=== PATIENT | male | born 1980 | race Caucasian/White ===

== ENCOUNTER → 2017-02-02 | Outpatient (REF) | payer MEDICAID ==
[~2017-02-02] MED LIST: /LAMO15TA; ACETGRA; CLON0.5T; CLON0.5T PO; DEPA125C; DEPA1TAB PO; DUONSOL; LAMO100T PO; LEVA750T; LEVO330T PO; OMEP40CA2 PO; SUCR1TA PO; THERGRAN; [UNRECOGNIZED DRUG - OTHER]; [UNRECOGNIZED DRUG - OTHER] OR
== END ==
LOC: M SFHCPLAZ 13:03
PROVIDERS: ATTEND Physician Assistant
DX: J06.9 Acute upper respiratory infection, unspecified (principal)

== ENCOUNTER → 2017-02-16 | Outpatient (CLI) | payer MEDICAID ==
[2017-02-16 12:50] LABS: BASO # 0.1 K/mm3 (0.0-0.2); BASO % 0.5 % (0.0-1.0); EOS # 0.4 K/mm3 (0.0-0.50); LARGE UNSTAINED CELL # 0.4 K/mm3 (0.0-0.4); LARGE UNSTAINED CELL % 2.8 % (0.0-4.0); LYMPH # 5.6 K/mm3 (1.5-4.5); LYMPH % 41.8 % (24.0-44.0); MEAN CORPUSCULAR HEMOGLOBIN 30.1 pg (27.0-33.0); MEAN CORPUSCULAR HGB CONC 32.2 g/dl (32.0-36.5); MEAN CORPUSCULAR VOLUME 93.4 fl (80.0-96.0); MONO # 0.6 K/mm3 (0.0-0.8); MONO % 4.8 % (0.0-5.0); NEUTROPHILS # 6.3 K/mm3 (1.8-7.7); PLATELET COUNT, AUTOMATED 367 k/mm3 (150-450); RED CELL DISTRIBUTION WIDTH 12.7 % (11.5-14.5)
[2017-02-16 12:52] LABS: WHITE BLOOD COUNT 13.3 K/mm3 (4.0-10.0)
== END ==
LOC: M LAB 11:57
PROVIDERS: ATTEND Psychiatry & Neurology Neurology
DX: Z51.81 Encounter for therapeutic drug level monitoring (principal); Z79.899 Other long term (current) drug therapy; R56.9 Unspecified convulsions

== ENCOUNTER → 2017-03-06 | Outpatient (CLI) | payer MEDICAID ==
--- NOTE | 2017-03-06 16:35 | REP ---
CT ABDOMEN AND PELVIS WITHOUT CONTRAST: CT abdomen and pelvis performed without oral or IV contrast. Sagittal and coronal reconstruction images are performed. IMPRESSION: Visualized lung bases demonstrate patchy infiltrate in the right lower lobe posteromedially. Liver, spleen, adrenals and pancreas appear grossly unremarkable. There is a 6 x 3 mm calcification in the proximal left ureter. There is no hydronephrosis bilaterally. A tiny heath-like calcification is seen in the left lower pole collecting system as well. There is no abdominal aortic aneurysm. There is no adenopathy. There is no free air or free fluid. There is no bowel wall thickening. There is no pelvic mass. IMPRESSION: There appears to be a 6 x 3 mm calculus in the proximal left ureter without hydronephrosis. Right lower lobe infiltrate. Signed by Andre Rousseau MD 03/06/2017 08:13 P
== END ==
LOC: M RAD 15:30
PROVIDERS: ATTEND Physician Assistant
DX: R30.0 Dysuria (principal); R31.9 Hematuria, unspecified; N20.1 Calculus of ureter

== ENCOUNTER → 2017-03-29 | Outpatient (CLI) | payer MEDICAID ==
[2017-03-29 10:35] LABS: BASO # 0.1 K/mm3 (0.0-0.2); BASO % 0.5 % (0.0-1.0); EOS # 0.3 K/mm3 (0.0-0.50); EOS % 2.3 % (0.0-3.0); LARGE UNSTAINED CELL # 0.2 K/mm3 (0.0-0.4); LARGE UNSTAINED CELL % 1.5 % (0.0-4.0); LYMPH # 5.1 K/mm3 (1.5-4.5); LYMPH % 35.7 % (24.0-44.0); MEAN CORPUSCULAR HEMOGLOBIN 31.6 pg (27.0-33.0); MEAN CORPUSCULAR HGB CONC 33.7 g/dl (32.0-36.5); MEAN CORPUSCULAR VOLUME 93.8 fl (80.0-96.0); MONO # 0.6 K/mm3 (0.0-0.8); MONO % 4.5 % (0.0-5.0); NEUTROPHILS # 7.9 K/mm3 (1.8-7.7); NEUTROPHILS % 55.4 % (36.0-66.0); PLATELET COUNT, AUTOMATED 300 k/mm3 (150-450); RED CELL DISTRIBUTION WIDTH 12.9 % (11.5-14.5)
[2017-03-29 11:01] LABS: ALBUMIN 3.5 GM/DL (3.2-5.2); ANION GAP 7 MEQ/L (8-16); BLOOD UREA NITROGEN 8 MG/DL (7-18); CALCIUM LEVEL 9.4 MG/DL (8.5-10.1); CARBON DIOXIDE LEVEL 27 MEQ/L (21-32); CHLORIDE LEVEL 106 MEQ/L (98-107); CREATININE FOR GFR 0.64 MG/DL (0.70-1.30); GLOMERULAR FILTRATION RATE > 60.0 (>60); GLUCOSE, FASTING 85 MG/DL (70-105); PHOSPHORUS LEVEL 2.4 MG/DL (2.5-4.9); POTASSIUM SERUM 4.2 MEQ/L (3.5-5.1); SODIUM LEVEL 140 MEQ/L (136-145)
[2017-03-29 11:06] LABS: WHITE BLOOD COUNT 14.2 K/mm3 (4.0-10.0)
--- NOTE | 2017-03-29 16:19 | REP ---
Clinical: Palpitations. Technique: AP and lateral. Comparison: 10/05/2009. Findings: Evaluation is limited by technique which accentuates the pulmonary vasculature and interstitium. As such, left perihilar opacities cannot definitively be excluded and differential diagnosis may include bronchitis as well as vascular congestion. Visualize cardiac silhouette appears normal. No effusion. No pneumothorax. Skeletal structures intact. Impression: Limited by technique and positioning. Cannot exclude vascular congestion or bronchitis (left greater than right). Signed by Don Pierre MD 03/29/2017 11:03 A
== END ==
LOC: M LAB 10:06
PROVIDERS: ATTEND Dentist Oral and Maxillofacial Surgery
DX: K04.01 Reversible pulpitis (principal)

== ENCOUNTER 2017-04-12 12:45 | Emergency (ER) | payer MEDICAID ==
[~2017-04-12] VITALS: Ht 152.4 cm; Wt 63.5 kg
[2017-04-12] MEDS ORDERED: FLOM5CAP PO (13:08)
[2017-04-12] MEDS ORDERED: ALBU83IN INH (13:08)
[2017-04-12] MEDS ORDERED: BACL10TA2 PO (13:08)
[2017-04-12] MEDS ORDERED: AMOX500C PO (13:08)
[2017-04-12 14:07] LABS: BASO # 0.1 K/mm3 (0.0-0.2); BASO % 0.6 % (0.0-1.0); EOS # 0.2 K/mm3 (0.0-0.50); EOS % 1.1 % (0.0-3.0); LARGE UNSTAINED CELL # 0.4 K/mm3 (0.0-0.4); LARGE UNSTAINED CELL % 2.5 % (0.0-4.0); LYMPH # 5.8 K/mm3 (1.5-4.5); LYMPH % 33.7 % (24.0-44.0); MEAN CORPUSCULAR HGB CONC 32.6 g/dl (32.0-36.5); MEAN CORPUSCULAR VOLUME 91.9 fl (80.0-96.0); MONO # 0.8 K/mm3 (0.0-0.8); MONO % 4.6 % (0.0-5.0); NEUTROPHILS % 57.6 % (36.0-66.0); PLATELET COUNT, AUTOMATED 439 k/mm3 (150-450); RED CELL DISTRIBUTION WIDTH 12.7 % (11.5-14.5)
[2017-04-12 14:08] LABS: WHITE BLOOD COUNT 17.3 K/mm3 (4.0-10.0)
[2017-04-12 14:26] LABS: ANION GAP 8 MEQ/L (8-16); BLOOD UREA NITROGEN 9 MG/DL (7-18); CALCIUM LEVEL 10.1 MG/DL (8.5-10.1); CARBON DIOXIDE LEVEL 31 MEQ/L (21-32); CHLORIDE LEVEL 106 MEQ/L (98-107); CREATININE FOR GFR 0.78 MG/DL (0.70-1.30); GLOMERULAR FILTRATION RATE > 60.0 (>60); GLUCOSE, FASTING 91 MG/DL (70-105); POTASSIUM SERUM 3.4 MEQ/L (3.5-5.1); SODIUM LEVEL 145 MEQ/L (136-145)
[2017-04-12] MEDS ORDERED: NS 1,000 ML IV ONE (14:45)
--- NOTE | 2017-04-12 15:32 | REP ---
CT abdomen pelvis without IV and oral contrast: Comparison is 03/06/2017. There is a 3 x 6 mm calculus is again noted in the proximal left ureter a centimeter or so more distal than on the comparison study. There is minimal left hydronephrosis. There is a 3 ml nonobstructive calculus in the lower pole taurus of the left kidney. There are no right renal or ureteral calculi. No right hydronephrosis. The visualized lung duke are unremarkable. The unenhanced hepatic parenchyma, gallbladder, pancreas, spleen, adrenals and abdominal aorta are unremarkable and unchanged. Bowel and mesentery are unremarkable. The appendix is unremarkable. Pelvis: There is no ascites. The bladder is unremarkable. There is no adenopathy. The pelvic bowel loops are unremarkable. Impression: Left ureteral calculus as described. Left renal calculus as described. Signed by Andre Payne MD 04/12/2017 03:24 P
[2017-04-12 18:35] VITALS: BP 108/71
[2017-04-12] MEDS ORDERED: CIPR500T89 PO (18:44)
[2017-04-12] MEDS ORDERED: CIPROFLOXACIN 500 MG TAB PO ONE (18:45)
== END 2017-04-12 19:11 | disposition home or self-care (01) ==
LOC: EDBD 12:45 → M ED 13:46
DX: N23 Unspecified renal colic (principal); D72.829 Elevated white blood cell count, unspecified; Z87.442 Personal history of urinary calculi; G80.9 Cerebral palsy, unspecified; K21.9 Gastro-esophageal reflux disease without esophagitis; R56.9 Unspecified convulsions; Z79.899 Other long term (current) drug therapy; Z88.1 Allergy status to other antibiotic agents

== ENCOUNTER → 2017-04-18 | Outpatient (CLI) | payer MEDICAID ==
[~2017-04-18] MED LIST changes: +ALBU83IN INH; +AMOX500C PO; +BACL10TA2 PO; +CIPR500T89 PO; +FLOM5CAP PO
--- NOTE | 2017-04-18 14:39 | REP ---
KUB, TWO VIEWS: HISTORY: Nephrolithiasis. Air is present in small and large intestine. There are no air fluid levels or dilated loops of intestine. There is no pneumoperitoneum. A mild amount of stool is present in the colon. There is no definite nephrolithiasis. IMPRESSION: Nonspecific bowel gas pattern. Signed by Rafael Fleming MD 04/18/2017 02:39 P
== END ==
LOC: M SMT 13:38
PROVIDERS: ATTEND Nurse Practitioner Family
DX: N20.0 Calculus of kidney (principal)

== ENCOUNTER → 2017-04-21 | Outpatient (REF) | payer MEDICAID | LOC: M SFHCPLAZ 17:05 | PROVIDERS: ATTEND Physician Assistant | DX: N20.0 Calculus of kidney (principal) ==

== ENCOUNTER → 2017-05-04 | Outpatient (CLI) | payer MEDICAID ==
[~2017-05-04] MED LIST changes: +PERC2.5T PO
[2017-05-04 10:40] LABS: MEAN CORPUSCULAR HEMOGLOBIN 30.8 pg (27.0-33.0); MEAN CORPUSCULAR HGB CONC 33.4 g/dl (32.0-36.5); MEAN CORPUSCULAR VOLUME 92.2 fl (80.0-96.0); WHITE BLOOD COUNT 11.3 K/mm3 (4.0-10.0)
[2017-05-04 10:45] LABS: INR 1.18
[2017-05-04 11:00] LABS: ALBUMIN 3.4 GM/DL (3.2-5.2); ALBUMIN/GLOBULIN RATIO 0.74 (1.00-1.93); ALKALINE PHOSPHATASE 104 U/L (45-117); ALT/SGPT 14 U/L (12-78); ANION GAP 10 MEQ/L (8-16); AST/SGOT 9 U/L (15-37); BILIRUBIN,TOTAL 0.3 MG/DL (0.2-1.0); BLOOD UREA NITROGEN 10 MG/DL (7-18); CALCIUM LEVEL 9.8 MG/DL (8.5-10.1); CARBON DIOXIDE LEVEL 27 MEQ/L (21-32); CHLORIDE LEVEL 105 MEQ/L (98-107); CREATININE FOR GFR 0.74 MG/DL (0.70-1.30); GLOMERULAR FILTRATION RATE > 60.0 (>60); GLUCOSE, FASTING 111 MG/DL (70-105); SODIUM LEVEL 142 MEQ/L (136-145)
== END ==
LOC: M LAB 10:07
PROVIDERS: ATTEND Nurse Practitioner Family
DX: N20.0 Calculus of kidney (principal)

== ENCOUNTER → 2017-05-08 | Day surgery (SDC) | payer MEDICAID ==
[~2017-05-08] VITALS: Ht 154.9 cm; Wt 63.5 kg
[~2017-05-08] MED LIST changes: +ACETAMINOPHEN TAB 650MG DOSE (2X325MG) PO PRN; +CONRAY-60 60% 50ML VIAL (Q9961) As Ordered ONE; +LIDOCAINE 2% 5ML JELLY UROJET As Ordered ONE; +LIDOCAINE 2% INJ 100 MG/5 ML SDV (FOR ANES.) As Ordered ONE; +LR 1,000 ML IV SCH; +MIDAZOLAM INJ 2 MG/2 ML VIAL (J2250) As Ordered ONE; +ONDANSETRON 4MG/2ML VIAL (J2405) As Ordered ONE; +ONDANSETRON 4MG/2ML VIAL (J2405) IV PRN; +PERCOCET 5MG/325MG TAB PO PRN; +PROPOFOL 200 MG/20 ML VIAL As Ordered ONE; +dexameTHASONE 4 MG/ML 1ML VIAL (J1100) As Ordered ONE; +fentaNYL 100 MCG/2 ML INJECTION (J3010) As Ordered ONE
[2017-05-08] MEDS: fentaNYL 100 MCG/2 ML INJECTION (J3010) IV PRN ×4 (16:22→16:37)
--- NOTE | 2017-05-08 16:25 | REP ---
Retrograde pyelogram: Five views. History: Nephrolithiasis. 19 seconds of fluoroscopy time is reported. Findings: A sequence of five fluoroscopically obtained last image hold spot radiographs of the left abdomen document left ureteral cannulation, guidewire manipulation, contrast injection, and double pigtail ureteral stenting. Signed by Alex Price MD 05/08/2017 04:47 P
[2017-05-08 17:40] VITALS: BP 128/85
--- NOTE | 2017-05-08 23:39 | RO ---
DATE OF PROCEDURE: 05/08/2017 PREPROCEDURE DIAGNOSIS: Nephrolithiasis. POSTPROCEDURE DIAGNOSIS: Nephrolithiasis. PROCEDURE: Cystoscopy, left ureteroscopy with basket extraction of stone, left retrograde pyelogram with intraoperative interpretation of images, left ureteral stent placement. SURGEON: Dr. Mazin House ACCOUNTING ADMINISTRATOR: None. ANESTHESIA: MAC. OPERATIVE INDICATIONS: This is a 36-year-old male who has had a proximal obstructing left ureteral stone. He was brought to the operating room today for the above listed procedure. DESCRIPTION OF PROCEDURE: The patient was brought to the operating room and MAC anesthesia was administered. Prophylactic antibiotics were infused. He was then placed in the dorsal lithotomy position and prepped and draped in the usual sterile fashion. A rigid cystoscope was inserted into the urethral meatus and advanced to the bladder. Once within the bladder, a guidewire was advanced up the left collecting system. I then advanced a ureteral access sheath over the wire, up into the left collecting system. The wire was then secured to the drape to serve as a safety wire. At this point, the flexible ureteroscope was advanced up the access sheath and into the ureter. Of note, the access sheath only went up to about the level of the crossing of the iliacs. I had to advance the ureteroscope up the rest of the distance of the ureter and of note, the patient had a very narrow ureter. This made it difficult to advance the ureteroscope up, but ultimately, in the proximal ureter, the 4 mm stone was seen. The stone was then grasped with a basket and removed. I went back in with the ureteroscope and examined the ureter again and did not see any additional stones. I tried advancing the ureteroscope into the kidney and of note, his ureteropelvic junction was somewhat narrow and I could not advance the ureteroscope into the left kidney. A retrograde pyelogram was performed. It was negative for hydronephrosis or extravasation. At this point, the ureteroscope was removed along with the access sheath and no additional stones were seen. Because of the narrowing of the ureter, I did decide to leave a stent. I then utilized the previously placed wire to advance a 6- [place] x 22-32 cm JJ ureteral stent up to the left collecting system. The wire was then removed, and there were adequate coils of the stent in the left renal pelvis and in the bladder. At this point, a new 16-[place] Randolph catheter was inserted into the bladder and the balloon was filled with 10 mL of sterile water. The fluid drained clear at the end of the procedure. The catheter was connected to gravity drainage, and this marked the conclusion of the procedure. The patient was then taken out of the dorsal lithotomy position, awakened from anesthesia and transported to the recovery room in stable condition. Estimated blood loss: 0 mL. Complications: None. Specimens: Kidney stone. Plan: The patient will followup in the clinic in a week or two for stent removal. Also of note, the patient was recently diagnosed with urinary retention and we will potentially do a voiding trial at that time as well. SANTA
== END | disposition home or self-care (01) ==
LOC: M SDC 13:56
PROVIDERS: ATTEND Urology
DX: N20.0 Calculus of kidney (principal); K21.9 Gastro-esophageal reflux disease without esophagitis; G80.9 Cerebral palsy, unspecified; Z99.3 Dependence on wheelchair; R56.9 Unspecified convulsions; Z79.899 Other long term (current) drug therapy
CPT/HCPCS: 52332; 52352; 74420; 82360; 88300; C1726; C1894; J0690; J2250; J2405; J3010; Q9961

== ENCOUNTER → 2017-05-22 | Outpatient (REF) | payer MEDICAID ==
[~2017-05-22] MED LIST changes: -ACETAMINOPHEN TAB 650MG DOSE (2X325MG) PO PRN; +CIPR-249 PO; -CIPR500T89 PO; -CONRAY-60 60% 50ML VIAL (Q9961) As Ordered ONE; -LIDOCAINE 2% 5ML JELLY UROJET As Ordered ONE; -LIDOCAINE 2% INJ 100 MG/5 ML SDV (FOR ANES.) As Ordered ONE; -LR 1,000 ML IV SCH; -MIDAZOLAM INJ 2 MG/2 ML VIAL (J2250) As Ordered ONE; -ONDANSETRON 4MG/2ML VIAL (J2405) As Ordered ONE; -ONDANSETRON 4MG/2ML VIAL (J2405) IV PRN; -PERCOCET 5MG/325MG TAB PO PRN; -PROPOFOL 200 MG/20 ML VIAL As Ordered ONE; -dexameTHASONE 4 MG/ML 1ML VIAL (J1100) As Ordered ONE; -fentaNYL 100 MCG/2 ML INJECTION (J3010) As Ordered ONE
== END ==
LOC: M SFHCPLAZ 14:30
PROVIDERS: ATTEND Physician Assistant
DX: E55.9 Vitamin D deficiency, unspecified (principal)

== ENCOUNTER → 2017-06-14 | Outpatient (REF) | payer MEDICAID | LOC: EEVIPCON 16:50 → M SMT 16:50 | PROVIDERS: ATTEND Urology | DX: N39.0 Urinary tract infection, site not specified (principal) ==

== ENCOUNTER → 2017-07-05 | Outpatient (REF) | payer MEDICAID | LOC: M SFHCPLAZ 16:16 | PROVIDERS: ATTEND Nurse Practitioner Family | DX: Z51.81 Encounter for therapeutic drug level monitoring (principal) ==

== ENCOUNTER → 2017-07-05 | Outpatient (CLI) | payer MEDICAID ==
--- NOTE | 2017-07-06 07:15 | REP ---
RIGHT FOOT, FOUR VIEW: Attention first digit. The patient has sustained a contusion. Prior examination 12/28/2015. Today's examination shows a fracture involving the articular surface of the proximal phalanx of the first digit. This represents a change. The previously present fracture involving the base of the proximal phalanx of the first digit has healed. There is a flat foot. IMPRESSION: Acute fracture involving the distal aspect of the proximal phalanx of the first digit with an intraarticular hairline fracture and a subtle fracture involving the mid lateral cortex. Signed by Afshin Foy DO 07/06/2017 02:40 P
== END ==
LOC: M LAB 16:44
PROVIDERS: ATTEND Nurse Practitioner Family
DX: Z51.81 Encounter for therapeutic drug level monitoring (principal); Z79.899 Other long term (current) drug therapy; S92.401A Displaced unspecified fracture of right great toe, initial encounter for closed fracture; X58.XXXA Exposure to other specified factors, initial encounter; Y92.9 Unspecified place or not applicable

== ENCOUNTER → 2017-10-09 | Outpatient (CLI) | payer MEDICAID ==
--- NOTE | 2017-10-09 17:46 | REP ---
Chest x-ray: Two views. History: Shortness of breath. Comparison chest x-ray September 14, 2017. Findings: The patient is rotated somewhat to the right for the sitting AP view of today's examination. Lungs are symmetrically aerated and clear. The pleural angles are sharp. Heart size is normal. No significant bony abnormality is seen. Pulmonary vasculature is not increased. Impression: No active disease. Signed by Alex Price MD 10/09/2017 08:30 P
== END ==
LOC: M LAB 15:59
PROVIDERS: ATTEND Family Medicine
DX: R06.02 Shortness of breath (principal)

== ENCOUNTER → 2017-11-20 | Outpatient (REF) | payer MEDICAID ==
[2017-11-20 18:42] LABS: FOLATE 22.2 NG/ML; VITAMIN B12 LEVEL 1163 PG/ML
[2017-11-20 18:50] LABS: IRON (FE) 95 UG/DL (65-175); PERCENT SATURATION 24.3 % (19.7-50.0); TOTAL IRON BINDING CAPACITY 391 UG/DL (250-450)
== END ==
LOC: M SFHCPLAZ 14:35
DX: D50.9 Iron deficiency anemia, unspecified (principal)

== ENCOUNTER → 2018-02-02 | Outpatient (CLI) | payer MEDICAID ==
[2018-02-02 13:17] LABS: HEMATOCRIT 47.6 % (42.0-52.0); HEMOGLOBIN 15.4 g/dl (14.0-18.0); MEAN CORPUSCULAR HEMOGLOBIN 30.1 pg (27.0-33.0); MEAN CORPUSCULAR HGB CONC 32.4 g/dl (32.0-36.5); PLATELET COUNT, AUTOMATED 252 10^3/uL (150-450); RED BLOOD COUNT 5.12 10^6/uL (4.30-6.10); RED CELL DISTRIBUTION WIDTH 12.9 % (11.5-14.5)
[2018-02-02 13:41] LABS: ADD MANUAL DIFFER YES; DIFF SLIDE NUMBER 229; POSITIVE DIFF POS FLAG
[2018-02-02 13:44] LABS: ALT/SGPT 13 U/L (12-78); VALPROIC ACID (DEPAKOTE) 89.8 UG/ML (50.0-100.0)
[2018-02-02 13:44] LABS: AST/SGOT 10 U/L (7-37)
[2018-02-02 14:21] LABS: ATYPICAL LYMPH 3 % (0-5); BASOPHILS 1 % (0-4); EOSINOPHILS 1 % (0-5); LYMPHOCYTES 39 % (16-52); MONOCYTES 6 % (0-8); NEUTROPHILS 50 % (35-75); PLATELET ESTIMATE NORMAL (NORMAL)
[2018-02-06 00:07] LABS: LAMOTRIGINE (LAMICTAL) 13.3 ug/mL (2.0-20.0)
== END ==
LOC: M LAB 12:28
DX: Z51.81 Encounter for therapeutic drug level monitoring (principal); Z79.899 Other long term (current) drug therapy; R56.9 Unspecified convulsions
CPT/HCPCS: 84460

== ENCOUNTER → 2018-08-09 | Outpatient (CLI) | payer MEDICAID ==
[2018-08-09 14:06] LABS: VALPROIC ACID (DEPAKOTE) 74.4 UG/ML (50.0-100.0)
[2018-08-13 00:06] LABS: LAMOTRIGINE (LAMICTAL) 15.3 ug/mL (2.0-20.0)
== END ==
LOC: M LAB 12:57
DX: R56.9 Unspecified convulsions (principal); Z51.81 Encounter for therapeutic drug level monitoring
CPT/HCPCS: 80164

== ENCOUNTER → 2018-08-30 | Outpatient (REF) | payer MEDICAID ==
[2018-08-30 13:37] LABS: HEMATOCRIT 46.5 % (42.0-52.0); MEAN CORPUSCULAR HEMOGLOBIN 29.9 pg (27.0-33.0); MEAN CORPUSCULAR HGB CONC 32.3 g/dl (32.0-36.5); MEAN CORPUSCULAR VOLUME 92.8 fl (80.0-96.0); PLATELET COUNT, AUTOMATED 366 10^3/uL (150-450); RED BLOOD COUNT 5.01 10^6/uL (4.30-6.10); RED CELL DISTRIBUTION WIDTH 12.5 % (11.5-14.5)
[2018-08-30 13:44] LABS: ADD MANUAL DIFFER YES; DIFF SLIDE NUMBER 217; POSITIVE DIFF POS FLAG; WHITE BLOOD COUNT 12.4 10^3/uL (4.0-10.0)
[2018-08-30 14:05] LABS: ATYPICAL LYMPH 31 % (0-5); EOSINOPHILS 3 % (0-5); LYMPHOCYTES 20 % (16-52); MONOCYTES 7 % (0-8); NEUTROPHILS 39 % (35-75); PLATELET ESTIMATE NORMAL (NORMAL)
[2018-08-30 14:10] LABS: CHOLESTEROL LEVEL 194 MG/DL (<200); CHOLESTEROL RISK RATIO 4.311 (<5); HDL CHOLESTEROL 45 MG/DL (>40); IRON (FE) 126 UG/DL (65-175); LDL CHOLESTEROL 112 MG/DL (<100); NON-HDL-C 149 MG/DL; PERCENT SATURATION 35.5 % (19.7-50.0); TOTAL IRON BINDING CAPACITY 355 UG/DL (250-450); TRIGLYCERIDES LEVEL 184 MG/DL (<150)
[2018-08-30 14:59] LABS: ESTIMATED AVERAGE GLUCOSE 103 MG/DL (60-110); HEMOGLOBIN A1c 5.2 %
== END ==
LOC: M SFHCPLAZ 11:13
DX: D50.9 Iron deficiency anemia, unspecified (principal); R73.01 Impaired fasting glucose; Z13.220 Encounter for screening for lipoid disorders

== ENCOUNTER → 2018-08-30 | Outpatient (REF) | payer MEDICAID | LOC: M SFHCPLAZ 13:19 | DX: J02.9 Acute pharyngitis, unspecified (principal) ==

== ENCOUNTER → 2019-02-08 | Outpatient (CLI) | payer MEDICAID ==
[~2019-02-08] MED LIST changes: -CLON0.5T PO; +CLON0.5T8 PO; +FLOM0.4C39 PO; -FLOM5CAP PO
[2019-02-11 14:14] LABS: LAMOTRIGINE (LAMICTAL) 16.1 ug/mL (2.0-20.0)
== END ==
LOC: M LAB 12:35
PROVIDERS: ATTEND Physician Assistant Medical
DX: R56.9 Unspecified convulsions (principal)

== ENCOUNTER → 2019-03-27 | Outpatient (REF) | payer MEDICAID ==
[~2019-03-27] MED LIST changes: -/LAMO15TA; +LAMI1TAB8
[2019-03-27 15:55] LABS: HEMATOCRIT 44.8 % (42.0-52.0); HEMOGLOBIN 14.5 g/dl (13.5-17.5); MEAN CORPUSCULAR HEMOGLOBIN 29.9 pg (27.0-33.0); MEAN CORPUSCULAR HGB CONC 32.4 g/dl (32.0-36.5); MEAN CORPUSCULAR VOLUME 92.4 fl (80.0-96.0); PLATELET COUNT, AUTOMATED 351 10^3/uL (150-450); RED BLOOD COUNT 4.85 10^6/uL (4.30-6.10)
[2019-03-27 16:00] LABS: WHITE BLOOD COUNT 13.6 10^3/uL (4.0-10.0)
[2019-03-27 16:28] LABS: ATYPICAL LYMPH 3 % (0-5); BASOPHILS 1 % (0-4); EOSINOPHILS 3 % (0-5); LYMPHOCYTES 47 % (16-52); MONOCYTES 2 % (0-8); NEUTROPHILS 44 % (35-75)
[2019-03-27 16:29] LABS: PLATELET ESTIMATE NORMAL (NORMAL)
== END ==
LOC: M SFHCPLAZ 13:34
PROVIDERS: ATTEND Family Medicine
DX: D72.820 Lymphocytosis (symptomatic) (principal)

== ENCOUNTER → 2019-06-20 | Outpatient (REF) | payer MEDICAID ==
[2019-06-21 12:28] LABS: H PYLORI QUALITATIVE IgG DETECTED (NEGATIVE)
[2019-06-21 13:11] LABS: HEPATITIS B SURFACE ANTIGEN NEGATIVE (NEGATIVE); HEPATITIS C VIRUS ABY INDEX 0.1 INDEX (<0.8)
== END ==
LOC: M SFHCPLAZ 11:23
PROVIDERS: ATTEND Family Medicine
DX: R94.5 Abnormal results of liver function studies (principal); R10.13 Epigastric pain

== ENCOUNTER → 2019-06-26 | Outpatient (CLI) | payer MEDICAID ==
--- NOTE | 2019-06-26 11:36 | REP ---
Right upper quadrant sonography: History: Elevated liver function studies. Abdomen pain. Comparison CT study April 12, 2017. Findings: Scan quality was inhibited by patient positioning and mobility factors and bowel gas. Scanning through the right upper quadrant of the abdomen demonstrates shadowing calculi in the gallbladder. No gallbladder wall thickening or pericholecystic fluid is seen. Common bile duct is normal measuring 0.6 cm in greatest diameter. Mild fatty infiltration of the liver pattern is seen. No focal liver lesion is appreciated. The pancreas is obscured by abdominal gas. There is no evidence of ascites. The right kidney measures 10.8 x 6.3 x 5.4 cm. There is a 1.4 cm cyst in the upper pole of the right kidney. Impression: Cholelithiasis. Right upper pole renal cyst 1.4 cm in diameter. Fatty infiltration of the liver suspected. Electronically Signed by Alex Price MD 06/26/2019 08:58 P
== END ==
LOC: M RAD 07:33
PROVIDERS: ATTEND Family Medicine
DX: R94.5 Abnormal results of liver function studies (principal)

== ENCOUNTER → 2019-06-27 | Outpatient (CLI) | payer MEDICAID ==
[~2019-06-27] MED LIST changes: +GASTROGRAFIN SOLUTION 30ML (Q9963) As Ordered ONE; +ISOVUE-370 76% 100ML VIAL (Q9967) As Ordered ONE
--- NOTE | 2019-06-27 17:22 | REP ---
CT CHEST AND ABDOMEN: COMPARISON: Abdomen 04/12/2017. REASON FOR EXAM: Possible lymphoma. CONTRAST: 100 mL [id number]. There is no mediastinal, hilar, or axillary adenopathy. There are no pleural or pericardial effusions. There is significant artifact caused by the patient's arms across his chest during scanning. Evaluation of the lung duke shows significant respiratory motion artifact and artifact caused by the aforementioned arms. This could potentially obscure a significant nodule. The small opacity is seen in the right lower lobe which is pleural based and has a maximal measurement of 2.1 cm . Limited evaluation of the liver, gallbladder, spleen, pancreas, adrenal glands and kidneys show no gross abnormalities. A small cyst is seen in the right kidney status quo. Small calcifications are seen in each kidney likely renovascular calcifications but obscured by the motion artifact. The abdominal aorta and paraaortic regions are within normal limits. There is no intraabdominal mass or adenopathy. The bowel loops and their mesenteries are within normal limits. CT PELVIS: There is no mass or adenopathy. There is no free fluid or free air. The bowel loops and their mesenteries are within normal limits. Bone window technique throughout the entire exam shows the osseous structures to be within normal limits. IMPRESSION: 1. Extreme exam limitations as described above. 2. Opacity in the right lung base as described above representing a change from lung base images of 04/12/2017. Possible subsegmental atelectatic change, however according the revised Fleischner's Society Criteria, three month followup is recommended. 3. Other findings as described above. There is no evidence of adenopathy on this limited exam. Electronically Signed by Afshin Foy DO 06/27/2019 06:02 P
== END ==
LOC: M RAD 11:50
PROVIDERS: ATTEND Internal Medicine
DX: R61 Generalized hyperhidrosis (principal)
CPT/HCPCS: 71260; 74178; Q9963; Q9967

== ENCOUNTER → 2019-07-22 | Outpatient (CLI) | payer MEDICAID ==
[~2019-07-22] MED LIST changes: -GASTROGRAFIN SOLUTION 30ML (Q9963) As Ordered ONE; -ISOVUE-370 76% 100ML VIAL (Q9967) As Ordered ONE; +MULTCAP PO
[2019-07-22 11:12] LABS: HEMATOCRIT 43.8 % (42.0-52.0); HEMOGLOBIN 14.1 g/dl (13.5-17.5); MEAN CORPUSCULAR HEMOGLOBIN 30.3 pg (27.0-33.0); MEAN CORPUSCULAR HGB CONC 32.2 g/dl (32.0-36.5); MEAN CORPUSCULAR VOLUME 94.2 fl (80.0-96.0); PLATELET COUNT, AUTOMATED 438 10^3/uL (150-450); RED BLOOD COUNT 4.65 10^6/uL (4.30-6.10)
[2019-07-22 11:15] LABS: WHITE BLOOD COUNT 13.3 10^3/uL (4.0-10.0)
[2019-07-22 11:33] LABS: VALPROIC ACID (DEPAKOTE) 75.4 UG/ML (50.0-100.0)
[2019-07-22 11:54] LABS: ATYPICAL LYMPH 2 % (0-5); EOSINOPHILS 5 % (0-3); LYMPHOCYTES 33 % (16-44); MONOCYTES 1 % (0-5); NEUTROPHILS 59 % (28-66)
[2019-07-22 11:55] LABS: PLATELET ESTIMATE NORMAL (NORMAL)
== END ==
LOC: M LAB 10:24
PROVIDERS: ATTEND Physician Assistant Medical
DX: G40.89 Other seizures (principal); Z79.899 Other long term (current) drug therapy

== ENCOUNTER → 2019-08-01 | Outpatient (REF) | payer MEDICAID | LOC: M SFHCPLAZ 12:29 | PROVIDERS: ATTEND Family Medicine | DX: A04.8 Other specified bacterial intestinal infections (principal) ==

== ENCOUNTER → 2019-08-02 | Outpatient (REF) | payer MEDICAID | LOC: M SFHCPLAZ 11:06 | PROVIDERS: ATTEND Family Medicine | DX: A04.8 Other specified bacterial intestinal infections (principal) ==

== ENCOUNTER 2019-08-06 09:12 | Day surgery (SDC) | payer MEDICAID ==
[~2019-08-06] VITALS: Ht 152.4 cm; Wt 78.8 kg
[~2019-08-06 09:12] MED LIST changes: +LIDOCAINE 1% MDV 20ML VIAL SQ PRN; +LR 1,000 ML IV ONE
[2019-08-06] MEDS ORDERED: MIDAZOLAM INJ 2 MG/2 ML VIAL (J2250) As Ordered ONE (09:37)
[2019-08-06] MEDS ORDERED: PROPOFOL 200 MG/20 ML VIAL As Ordered ONE (09:37)
[2019-08-06] MEDS ORDERED: LIDOCAINE 2% INJ 100 MG/5 ML SDV (FOR ANES.) As Ordered ONE (09:37)
[2019-08-06] MEDS ORDERED: ONDANSETRON 4MG/2ML VIAL (J2405) As Ordered ONE (09:37)
[2019-08-06] MEDS ORDERED: fentaNYL 100 MCG/2 ML INJECTION (J3010) As Ordered ONE (09:37)
[2019-08-06] MEDS ORDERED: SUGAMMADEX SODIUM 500 MG/5 ML VIAL (BRIDION) As Ordered ONE (10:25)
[2019-08-06] MEDS ORDERED: ROCURONIUM BROMIDE 50 MG/5 ML VIAL As Ordered ONE (10:25)
--- NOTE | 2019-08-06 11:23 | ROOR ---
Patient Name: Darrius Alcazar Procedure Date: 08/06/2019 10:39 AM Date of : 1980 Age: 38 Gender: Male Note Status: Finalized Procedure: Upper GI endoscopy Indications: Generalized abdominal pain Providers: Alireza Oropeza Jr, MD Referring MD: Alireza Oropeza Jr, MD Requesting Provider: Medicines: General Anesthesia Complications: No immediate complications. Procedure: Pre-Anesthesia Assessment: - Prior to the procedure, a History and Physical was performed, and patient medications and allergies were reviewed. The patient is competent. The risks and benefits of the procedure and the sedation options and risks were discussed with the patient. All questions were answered and informed consent was obtained. Patient identification and proposed procedure were verified by the physician and the nurse in the pre-procedure area and in the procedure room. Mental Status Examination: alert and oriented. Airway Examination: normal oropharyngeal airway and neck mobility. Respiratory Examination: clear to auscultation. CV Examination: normal. ASA Grade Assessment: III - A patient with severe systemic disease. After reviewing the risks and benefits, the patient was deemed in satisfactory condition to undergo the procedure. The anesthesia plan was to use moderate sedation / analgesia (conscious sedation). Immediately prior to administration of medications, the patient was re-assessed for adequacy to receive sedatives. The heart rate, respiratory rate, oxygen saturations, blood pressure, adequacy of pulmonary ventilation, and response to care were monitored throughout the procedure. The physical status of the patient was re-assessed after the procedure. The Endoscope was introduced through the mouth, and advanced to the second part of duodenum. The upper GI endoscopy was accomplished without difficulty. The patient tolerated the procedure well. Findings: The upper third of the esophagus, middle third of the esophagus and lower third of the esophagus were normal. A small hiatal hernia was present. The cardia, gastric fundus, gastric body, gastric antrum, prepyloric region of the stomach and pylorus were normal. Biopsies were taken with a cold forceps for histology. The duodenal bulb, first portion of the duodenum and second portion of the duodenum were normal. Impression: - Normal upper third of esophagus, middle third of esophagus and lower third of esophagus. - Small hiatal hernia. - Normal cardia, gastric fundus, gastric body, antrum, prepyloric region of the stomach and pylorus. - Normal duodenal bulb, first portion of the duodenum and second portion of the duodenum. - No specimens collected. Recommendation: - Discharge patient to home (with escort). Alireza Oropeza MD Alireza Oropeza Jr, MD 08/06/2019 11:22:54 AM Electronically signed by Alireza Oropeza Jr, MD Number of Addenda: 0 Note Initiated On: 08/06/2019 10:39 AM Estimated Blood Loss: Estimated blood loss: none.
--- NOTE | 2019-08-06 11:28 | ROOR ---
Patient Name: Darrius Alcazar Procedure Date: 08/06/2019 10:44 AM Date of : 1980 Age: 38 Gender: Male Note Status: Finalized Procedure: Colonoscopy Indications: Generalized abdominal pain Providers: Alireza Oropeza Jr, MD Referring MD: Alireza Oropeza Jr, MD Requesting Provider: Medicines: General Anesthesia Complications: No immediate complications. Procedure: Pre-Anesthesia Assessment: - Prior to the procedure, a History and Physical was performed, and patient medications and allergies were reviewed. The patient is competent. The risks and benefits of the procedure and the sedation options and risks were discussed with the patient. All questions were answered and informed consent was obtained. Patient identification and proposed procedure were verified by the physician and the nurse in the pre-procedure area and in the procedure room. Mental Status Examination: alert and oriented. Airway Examination: normal oropharyngeal airway and neck mobility. Respiratory Examination: clear to auscultation. CV Examination: normal. ASA Grade Assessment: III - A patient with severe systemic disease. After reviewing the risks and benefits, the patient was deemed in satisfactory condition to undergo the procedure. The anesthesia plan was to use moderate sedation / analgesia (conscious sedation). Immediately prior to administration of medications, the patient was re-assessed for adequacy to receive sedatives. The heart rate, respiratory rate, oxygen saturations, blood pressure, adequacy of pulmonary ventilation, and response to care were monitored throughout the procedure. The physical status of the patient was re-assessed after the procedure. The Colonoscope was introduced through the anus and advanced to the descending colon. The colonoscopy was performed without difficulty. The patient tolerated the procedure well. The quality of the bowel preparation was unsatisfactory. Findings: The rectum, sigmoid colon and distal descending colon appeared normal hnad no obstruction was seen however ther was solid stool throughout this area. Impression: - Preparation of the colon was unsatisfactory. - The rectum, sigmoid colon and distal descending colon are normal. - No specimens collected. Recommendation: - Discharge patient to home (ambulatory). - Return to primary care physician as previously scheduled. Alireza Oropeza MD Alireza Oropeza Jr, MD 08/06/2019 11:27:54 AM Electronically signed by Alireza Oropeza Jr, MD Number of Addenda: 0 Note Initiated On: 08/06/2019 10:44 AM Estimated Blood Loss: Estimated blood loss: none.
[2019-08-06] MEDS ORDERED: LR 1,000 ML IV SCH ×2 (11:45)
[2019-08-06 12:10] VITALS: BP 120/85
== END 2019-08-06 12:35 | disposition home or self-care (01) ==
LOC: M SDC 09:12
PROVIDERS: ATTEND Surgery
DX: K44.9 Diaphragmatic hernia without obstruction or gangrene (principal); K21.9 Gastro-esophageal reflux disease without esophagitis; G80.9 Cerebral palsy, unspecified; Z99.3 Dependence on wheelchair; Z88.1 Allergy status to other antibiotic agents; Z79.899 Other long term (current) drug therapy
CPT/HCPCS: 43239; 45378; 88305; J2250; J2405; J3010

== ENCOUNTER → 2019-08-15 | Outpatient (REF) | payer MEDICAID ==
[~2019-08-15] MED LIST changes: -LIDOCAINE 1% MDV 20ML VIAL SQ PRN; -LR 1,000 ML IV ONE
[2019-08-15 17:38] LABS: BLOOD UREA NITROGEN 11 MG/DL (7-18); CALCIUM LEVEL 9.5 MG/DL (8.5-10.1); CARBON DIOXIDE LEVEL 30 MEQ/L (21-32); CHLORIDE LEVEL 107 MEQ/L (98-107); CREATININE FOR GFR 0.69 MG/DL (0.70-1.30); GLOMERULAR FILTRATION RATE > 60.0 (>60); GLUCOSE, FASTING 76 MG/DL (70-100); NT-PRO BNP 49 PG/ML (<125); SODIUM LEVEL 145 MEQ/L (136-145)
== END ==
LOC: M SFHCPLAZ 15:34
PROVIDERS: ATTEND Family Medicine
DX: R06.01 Orthopnea (principal)

== ENCOUNTER 2019-12-26 08:36 | Inpatient (IN) | payer MEDICAID ==
[~2019-12-26] VITALS: Ht 149.9 cm; Wt 78.2 kg
[~2019-12-26 08:36] MED LIST changes: +CLON0.5T2 PO; -CLON0.5T8 PO; -LAMO100T PO; +LAMO100T3 PO; -OMEP40CA2 PO; +OMEP40CA97 PO
[2019-12-26] MEDS: VITAMIN D 1,000 INTERNATIONAL UNITS TABLET PO SCH (09:00)
[2019-12-26] MEDS ORDERED: CVS125CA3 PO (09:11)
[2019-12-26] MEDS ORDERED: ALBU83IN NEB (09:11)
[2019-12-26] MEDS ORDERED: ONDANSETRON 4MG/2ML VIAL (J2405) IV ONE (09:15)
[2019-12-26 09:29] LABS: BASO # 0.1 10^3/uL (0.0-0.2); BASO % 0.4 % (0.0-1.0); EOS # 0.2 10^3/uL (0.0-0.5); HEMATOCRIT 45.4 % (42.0-52.0); HEMOGLOBIN 14.4 g/dl (13.5-17.5); LYMPH # 3.7 10^3/uL (1.5-5.0); LYMPH % 23.4 % (24.0-44.0); MEAN CORPUSCULAR HGB CONC 31.7 g/dl (32.0-36.5); MEAN CORPUSCULAR VOLUME 91.3 fl (80.0-96.0); MONO # 0.9 10^3/uL (0.0-0.8); MONO % 5.9 % (0.0-5.0); NEUTROPHILS # 10.8 10^3/uL (1.5-8.5); NEUTROPHILS % 68.9 % (36.0-66.0); PLATELET COUNT, AUTOMATED 364 10^3/uL (150-450); RED BLOOD COUNT 4.97 10^6/uL (4.30-6.10); WHITE BLOOD COUNT 15.6 10^3/uL (4.0-10.0)
[2019-12-26] MEDS: MORPHINE 4 MG/ML 1ML VIAL/SYRINGE (J2270) IV PRN ×2 (09:51→10:27)
[2019-12-26 10:02] LABS: ALBUMIN 3.7 GM/DL (3.2-5.2); ALT/SGPT 26 U/L (12-78); BILIRUBIN,DIRECT 0.2 MG/DL (0.0-0.2); BILIRUBIN,TOTAL 0.3 MG/DL (0.2-1.0); BLOOD UREA NITROGEN 12 MG/DL (7-18); CALCIUM LEVEL 9.9 MG/DL (8.5-10.1); CARBON DIOXIDE LEVEL 30 MEQ/L (21-32); CHLORIDE LEVEL 107 MEQ/L (98-107); CREATININE FOR GFR 0.81 MG/DL (0.70-1.30); GLOMERULAR FILTRATION RATE > 60.0 (>60); GLUCOSE, FASTING 102 MG/DL (70-100); LIPASE 59 U/L (73-393); POTASSIUM SERUM 3.2 MEQ/L (3.5-5.1); SODIUM LEVEL 144 MEQ/L (136-145); TOTAL PROTEIN 8.4 GM/DL (6.4-8.2)
--- NOTE | 2019-12-26 10:40 | REP ---
Clinical: Right renal colic. Technique: Axial noncontrast images from the lung bases to the pubic symphysis with coronal and sagittal re-formations. Comparison: 06/27/2019. Findings: Evaluation of the urinary tract system demonstrates few punctate nonobstructing bilateral intrarenal calculi and possible 2 cm upper pole right renal cyst. No perinephric stranding or hydroureteronephrosis and no obstructing calculi are identified. The bilateral ureters and bladder are normal. Liver, spleen, pancreas, gallbladder, and bilateral adrenal glands are normal. The enteric system is without obstruction or acute inflammatory process. Pelvis demonstrates normal bladder and age appropriate prostate/seminal vesicles. No ascites. No free air. No adenopathy. Abdominal aorta without aneurysm. Musculoskeletal structures demonstrate age-related changes without focal abnormality. Impression: 1. Punctate nonobstructing bilateral nephroliths. No acute urinary tract pathology. 2. No acute abdominopelvic pathology. Electronically Signed by Don Pierre MD 12/26/2019 10:32 A
[2019-12-26] MEDS ORDERED: LORazepam 2 MG/ML VIAL (J2060) IV ONE (10:45)
[2019-12-26] MEDS ORDERED: HYDROMORPHONE HCL 0.5 MG/ 0.5 ML SYRINGE (J1170 PER 1) IV ONE (11:45)
--- NOTE | 2019-12-26 12:03 | REP ---
Clinical: Pain with history of cholelithiasis. Technique: Real time brito scale and color evaluation using curved array transducer. Findings: Gallbladder demonstrates multiple gallstones without wall thickening or pericholecystic fluid and no biliary ductal dilatation. The common bile duct measures 5.3 mm diameter. No sonographic Cabral's sign was elicited. Liver is unremarkable. Limited evaluation the pancreas is normal. The kidney is normal and without hydronephrosis. No ascites in the visualized right upper quadrant. Impression: Cholelithiasis. No sonographic evidence for acute cholecystitis. Electronically Signed by Don Pierre MD 12/26/2019 11:54 A
[2019-12-26] MEDS ORDERED: DEPA1CAP PO (12:37)
[2019-12-26] MEDS ORDERED: VITAD1000T PO (12:37)
[2019-12-26] MEDS ORDERED: BACL10TA2 PO (12:37)
[2019-12-26] MEDS ORDERED: TAB-TAB5 PO (12:37)
[2019-12-26] MEDS ORDERED: SUCR1ORA2 PO (12:37)
[2019-12-26] MEDS ORDERED: FIBE625T PO (12:37)
[2019-12-26] MEDS ORDERED: HYDROMORPHONE HCL 0.5 MG/ 0.5 ML SYRINGE (J1170 PER 1) IV PRN ×2 (13:15→16:00)
[2019-12-26] MEDS ORDERED: MOM 30ML SUSPENSION UDC PO PRN (13:15)
[2019-12-26] MEDS ORDERED: ROCURONIUM BROMIDE 50 MG/5 ML VIAL As Ordered ONE (13:35)
[2019-12-26] MEDS ORDERED: ONDANSETRON 4MG/2ML VIAL (J2405) As Ordered ONE (13:35)
[2019-12-26] MEDS ORDERED: dexameTHASONE 4 MG/ML 1ML VIAL (J1100) As Ordered ONE (13:35)
[2019-12-26] MEDS ORDERED: propofoL 200 MG/20 ML VIAL As Ordered ONE (13:35)
[2019-12-26] MEDS ORDERED: LIDOCAINE 2% INJ 100 MG/5 ML SDV (FOR ANES.) As Ordered ONE (13:35)
--- NOTE | 2019-12-26 13:37 | CR.PDOC ---
General Surgery Consultation Date of Consultation 12/26/19 History and Physical CONSULT REPORT FOR: EMERGENCY ROOM PHYSICIAN/ HOSPITALIST REASON FOR CONSULTATION: abdominal pain HISTORY OF PRESENT ILLNESS: 39m with cerebral palsy, bed-ridden, needs 24hour care, stays at home with mother brought in to the ER with 4-5 day history of abdominal pain. Patient is nonverbal but points to the epigastric area where he hurts, moaning, screaming in pain. No fevers or chills, severe diarrhea, vomiting reported but decreased appetite and oral intake. Last year he was having intermittent symptoms of abdominal pain and was worked up and found to have cholelithiasis, had a normal Upper endoscopy with normal results. He was constipated then and was given laxatives and his pain improved so this was presumed probably from constipation/fecal impaction. Despite the pain patient has been having regular stools. Last BM this morning was reported soft, non bloody, not watery or loose. PAST MEDICAL HISTORY: 1. h/o bronchitis and pneumonia 2. GERD 3. Constipation 4. seizure d/o last seizure 6-7 yrs ago. 5. PAST SURGICAL HISTORY: INCLUDES: 1. bilateral achilles tenotomy PREVIOUS ANESTHESIA REACTIONS: ALLERGIES: Please see below. FAMILY HISTORY: noncontributory. HOME MEDICATIONS: Please see below. REVIEW OF SYSTEMS: GENERAL: no fevers or chills reported by carefivers. MUSCULOSKELETAL: non ambulatory with flexion contractures of both arms. SKIN: no rashes. NEUROLOGIC: seizures on meds, last event 6 years ago. ENDOCRINE: no diabetes. HEMATOLOGY/ONCOLOGY: Denies bleeding or clotting disorder. PULMONARY: Denies chronic cough, dyspnea and wheezing. GASTROINTESTINAL: see hpi. GENITOURINARY: .. INFECTIOUS: Denies any recent upper respiratory tract infection, UTI, need for use of antibiotics. NUTRITION: reports poor appetite. PHYSICAL EXAMINATION: VITALS SIGNS: Please see below. GENERAL APPEARANCE:patient screaming, in pain. SKIN: warm and dry, looks mildly dehydrated. HEENT: dry lips with thick secretions in mouth, anicteric sclera. NECK: short neck, no obvious JVD. LUNGS: Clear to auscultation bilaterally. No wheezing appreciated. HEART: No chest wall abnormalities. Regular rate and rhythm with no murmurs appreciated. ABDOMEN: Abdomen is round, soft, minimally distended. tender at the epigastric and right upper quadrant area. EXTREMITIES: flexion contractures of extremities ANCILLARIES: . LABORATORY DATA: Please see below. IMAGING STUDIES: US abdomen Cholelithiasis. No sonographic evidence for acute cholecystitis. CT abdomen and pelvis Evaluation of the urinary tract system demonstrates few punctate nonobstructing bilateral intrarenal calculi and possible 2 cm upper pole right renal cyst. No perinephric stranding or hydroureteronephrosis and no obstructing calculi are identified. The bilateral ureters and bladder are normal. Liver, spleen, pancreas, gallbladder, and bilateral adrenal glands are normal. The enteric system is without obstruction or acute inflammatory process. Pelvis demonstrates normal bladder and age appropriate prostate/seminal vesicles. No ascites. No free air. No adenopathy. Abdominal aorta without aneurysm. Musculoskeletal structures demonstrate age-related changes without focal abnormality. IMPRESSION AND PLAN: gallstones probably with acute cholecystitis given leukocytosis of 15.6 and pain not relieved with 2 doses of IV morphine and one dose of IV dilaudid. I spoke to his mother and plan to take him to the OR today for laparoscopic cholecystectomy. Vital Signs Vital Signs Date Time Temp Pulse Resp B/P (MAP) Pulse Ox O2 Delivery O2 Flow Rate FiO2 12/26/19 12:14 20 12/26/19 10:58 132 127/86 91 12/26/19 08:41 99.7 Room Air Laboratory Data Labs 24H Laboratory Tests 2 12/26/19 09:13: Immature Granulocyte % (Auto) 0.4, Neutrophils (%) (Auto) 68.9H, Lymphocytes (%) (Auto) 23.4L, Monocytes (%) (Auto) 5.9H, Eosinophils (%) (Auto) 1.0, Basophils (%) (Auto) 0.4, Neutrophils # (Auto) 10.8H, Lymphocytes # (Auto) 3.7, Monocytes # (Auto) 0.9H, Eosinophils # (Auto) 0.2, Basophils # (Auto) 0.1, Nucleated Red Blood Cells % (auto) 0.0, Anion Gap 7L, Glomerular Filtration Rate > 60.0, Calcium Level 9.9, Total Bilirubin 0.3, Direct Bilirubin 0.2, Aspartate Amino Transf (AST/SGOT) 31, Alanine Aminotransferase (ALT/SGPT) 26, Alkaline Phosphatase 108, Total Protein 8.4H, Albumin 3.7, Albumin/Globulin Ratio 0.79L, Lipase 59L CBC/BMP Laboratory Tests 12/26/19 09:13 Home Medications Scheduled Calcium Polycarbophil (Fibercon) 625 Mg Tablet, 625 MG PO QID, (Reported) Cholecalciferol (Vitamin D3) (Vitamin D3) 1,000 Unit Tablet, 1,000 UNITS PO DEVON Y, (Reported) Clonazepam (Clonazepam) 0.5 Mg Tab, 0.5 MG PO BID, (Reported) TAKES AT 1230 AND 2100 Divalproex Sodium (Depakote Sprinkle) 125 Mg Cap.drLilianspr, 250 MG PO QID, (Reported) Lamotrigine (Lamotrigine) 100 Mg Tab, 100 MG PO BID, (Reported) Levocarnitine (Levocarnitine) 330 Mg Tab, 330 MG PO TID, (Reported) Multivitamin with Iron (Tab-A-Holger with Iron) 1 Each Tablet, 1 TAB PO QHS, (Reported) Omeprazole (Omeprazole) 40 Mg Cap, 40 MG PO DAILY, (Reported) TAKES AT 1230 Simethicone (Gas Relief) 125 Mg Capsule, 125 MG PO PCHS, (Reported) Sucralfate (Sucralfate) 1 Gm/10 Ml Oral.susp, 1 GM PO ACHS, (Reported) Scheduled PRN Albuterol Sulf (Albuterol Sulfate) 2.5 Mg/3 Ml Nebu, 2.5 MG INH QID PRN for SHORTNESS OF BREATH, (Reported) Baclofen (Baclofen) 10 Mg Tablet, 5 MG PO TID PRN for MUSCLE SPASMS, (Reported) Allergies Coded Allergies: azithromycin (Verified Allergy, Unknown, hives, 08/01/19) KERRY MARY MD Dec 26, 2019 13:37
[2019-12-26] MEDS ORDERED: fentaNYL 250 MCG/5 ML INJECTION (J3010) As Ordered ONE (13:39)
[2019-12-26] MEDS ORDERED: MIDAZOLAM INJ 2 MG/2 ML VIAL (J2250) As Ordered ONE (13:39)
[2019-12-26] MEDS ORDERED: ACETAMINOPHEN 1000MG 100ML IV BTL (OFIRMEV) (J0131 PER 10MG) As Ordered ONE (13:43)
[2019-12-26] MEDS ORDERED: PIPERACILLIN/TAZOBACTAM SOD 3.375 GM in D5W MINI-BAG PLUS 50 ML IV SCH (14:00)
[2019-12-26] MEDS ORDERED: UNASYN 1.5 GM VIAL As Ordered ONE (14:09)
[2019-12-26] MEDS ORDERED: BUPIVACAINE HCL 0.25% 30 ML VIAL As Ordered ONE (14:10)
[2019-12-26] MEDS ORDERED: CONRAY-60 60% 50ML VIAL (Q9961) As Ordered ONE (14:12)
[2019-12-26] MEDS ORDERED: LIDOCAINE 1% SDV INJ 30 ML VIAL As Ordered ONE (14:12)
--- NOTE | 2019-12-26 14:19 | HPEPDOC ---
General Date of Admission Dec 26, 2019 at 13:12 Date of Service: Dec 26, 2019 Chief Complaint The patient is a 39-year-old male who presented to the emergency room with complaints of abdominal pain History of Present Illness Patient is a 39-year-old male with a PMHx of Cerebral palsy (non- verbal at baseline), Seizure disorder, Hx of Nephrolithiasis, Hx of Cholelithiasis, GERD who presented to the emergency room with complaint of abdominal pain. Patient is nonverbal at baseline and his family members were present to provide details to his history. Patients family has reported that he has had significant changes in his behavior much more pronounced over the last 1 week. They have reported that this is indicative of something going on and they report that hes been scratching his abdomen, indicating discomfort. At home he has experienced some loss of weight over 6 months, however, has been able to regain his weight over the last 6 months. His family has been encouraging increased oral intake and he has been tolerating an oral diet. However, this morning he did have an episode of vomiting. No fevers or chills were reported at home. Patient is taken care of by his mother Bhavna Alcazar, his 2 brothers and one aunt. Home Medications Scheduled Calcium Polycarbophil (Fibercon) 625 Mg Tablet, 625 MG PO QID, (Reported) Cholecalciferol (Vitamin D3) (Vitamin D3) 1,000 Unit Tablet, 1,000 UNITS PO DA MARTHA, (Reported) Clonazepam (Clonazepam) 0.5 Mg Tab, 0.5 MG PO BID, (Reported) TAKES AT 1230 AND 2100 Divalproex Sodium (Depakote Sprinkle) 125 Mg Cap., 250 MG PO QID, (Reported) Lamotrigine (Lamotrigine) 100 Mg Tab, 100 MG PO BID, (Reported) Levocarnitine (Levocarnitine) 330 Mg Tab, 330 MG PO TID, (Reported) Multivitamin with Iron (Tab-A-Holger with Iron) 1 Each Tablet, 1 TAB PO QHS, (Reported) Omeprazole (Omeprazole) 40 Mg Cap, 40 MG PO DAILY, (Reported) TAKES AT 1230 Simethicone (Gas Relief) 125 Mg Capsule, 125 MG PO PCHS, (Reported) Sucralfate (Sucralfate) 1 Gm/10 Ml Oral.susp, 1 GM PO ACHS, (Reported) Scheduled PRN Albuterol Sulf (Albuterol Sulfate) 2.5 Mg/3 Ml Nebu, 2.5 MG INH QID PRN for SHORTNESS OF BREATH, (Reported) Baclofen (Baclofen) 10 Mg Tablet, 5 MG PO TID PRN for MUSCLE SPASMS, (Reported) Allergies Coded Allergies: azithromycin (Verified Allergy, Unknown, hives, 08/01/19) Past Medical History Medical History Cerebral palsy (non-verbal at baseline), Seizure disorder, Hx of Nephrolithiasis, Hx of Cholelithiasis, GERD Surgical History Bilateral calf surgery as a child Dental surgery 2 years ago Family History - Patients mother present in the room does not reporting significant past medical history Social History - Denies the use of alcohol, tobacco or illicit drugs - Denies recent travel or sick contacts - Lives mother - Occupation; Disability Review of Systems Other systems 10 point review of systems complete, all negative otherwise stated in HPI Vital Signs - Vitals: BP 127/86, HR 132, RR 20, Sat 93%RA, Temp 99.7 - General: Lying in bed, Appears to be in pain, Awake / Alert - HEENT: NC, AT, PERRLA - CVS: Tachycardia, +S1S2 - Lungs: Fair air entry bilaterally, No appreciable wheezing / rales / rhonchi - Abdomen: Soft, Non-distended, Appears to have some epigastric discomfort - Extremities: No lower extremity edema, No calf tenderness - Neuro: No focal motor or sensory deficit - Skin: No visible rashes Laboratory Data Labs 24H Laboratory Tests 2 12/26/19 09:13: Immature Granulocyte % (Auto) 0.4, Neutrophils (%) (Auto) 68.9H, Lymphocytes (%) (Auto) 23.4L, Monocytes (%) (Auto) 5.9H, Eosinophils (%) (Auto) 1.0, Basophils (%) (Auto) 0.4, Neutrophils # (Auto) 10.8H, Lymphocytes # (Auto) 3.7, Monocytes # (Auto) 0.9H, Eosinophils # (Auto) 0.2, Basophils # (Auto) 0.1, Nucleated Red Blood Cells % (auto) 0.0, Anion Gap 7L, Glomerular Filtration Rate > 60.0, Calcium Level 9.9, Total Bilirubin 0.3, Direct Bilirubin 0.2, Aspartate Amino Transf (AST/SGOT) 31, Alanine Aminotransferase (ALT/SGPT) 26, Alkaline Phosphatase 108, Total Protein 8.4H, Albumin 3.7, Albumin/Globulin Ratio 0.79L, Lipase 59L 12/26/19 13:40: CBC/BMP Laboratory Tests 12/26/19 09:13 Microbiology Microbiology 12/26/19 Blood Culture, Received Pending Plan / VTE VTE Prophylaxis Ordered?: Yes Plan Plan Sepsis - possibly 2/2 intra-abdominal source of infection, possibly 2/2 pneumonia - Presented to the emergency room with complaints of changes - Patient was noted to be tachycardic in the ER - Leukocytosis with neutrophil predominance, will check lactic acid - CXR 12/26: Subtle infiltrates in the right base and left perihilar region suspected. - Will check UA / Urine cultures / Blood cultures - Will start IV fluid hydration - Will start Zosyn and Doxycycline; coverage for intra-abdominal source and atypical coverage for PNA Abdominal pain - possibly 2/2 biliary colic - Presented to the emergency room with complaints of behavior changes and suspected abdominal pain - Physical without epigastric tenderness - Leukocytosis noted, liver function within normal limits - CT ab/pelvis 12/26: 1. Punctate nonobstructing bilateral nephroliths. No acute urinary tract pathology. 2. No acute abdominopelvic pathology. - US abdomen 12/26: Cholelithiasis. No sonographic evidence for acute cholecystitis. - Will provide coverage for intra-abdominal source of infection - Will check lactic acid - Has been evaluated by Surgery; Dr. Turcios - will likely be taking patient to the OR - c/w Pain control with Dilaudid PRN and cardiac monitoring Behavioral changes - possibly 2/2 underlying infection - See below Cerebral palsy - Patient is non-verbal at baseline - c/w Baclofen Seizure disorder - No reported seizures in 7 years - Follows with Dr. Sabillon as an outpatient - Will c/w Divalproex and Lamotrigine Bowel regimen - c/w FiberCon - Will start Milk of Magnesia Hx of Nephrolithiasis Hx of Cholelithiasis GERD - c/w Carafate - Will start Protonix IV DVT prophylaxis - Will start Heparin FRANK BURRELL MD Dec 26, 2019 14:19
[2019-12-26 14:24] LABS: CPK CREATINE PHOSPHOKINASE 608 U/L (39-308); MB/CK RELATIVE INDEX 0.49 (< OR =4); TROPONIN I < 0.02 NG/ML (< 0.10)
[2019-12-26] MEDS ORDERED: BACLOFEN 5MG PER 1/2 TABLET PO PRN (14:30)
[2019-12-26] MEDS ORDERED: SENOKOT S TAB PO PRN (14:30)
[2019-12-26] MEDS ORDERED: ALBUTEROL SULFATE 2.5 MG/0.5 ML INH NEB SOLN INH PRN (14:30)
[2019-12-26] MEDS ORDERED: BUPIVACAINE LIPOSOME/PF 1.3% 20ML VIAL (13.3MG/ML)(EXPAREL)(C9290 PER1MG) As Ordered ONE (14:38)
[2019-12-26] MEDS: AMPICILLIN SOD/SULBACTAM SOD 3 GM in D5W MINI-BAG PLUS 100 ML IV SCH ×2 (15:00→20:32)
--- NOTE | 2019-12-26 15:09 | REP ---
PORTABLE CHEST X-RAY: Single view. HISTORY: Sepsis. COMPARISON CHEST X-RAY: June 14, 2019. FINDINGS: The patient is rotated somewhat to the left. There are subtle increased markings in the left perihilar region and right base medially consistent with infiltrate. Pleural angles are sharp. Heart is not enlarged. IMPRESSION: Subtle infiltrates in the right base and left perihilar region suspected. Electronically Signed by Alex Price MD 12/26/2019 05:14 P
[2019-12-26] MEDS ORDERED: SUGAMMADEX SODIUM 500 MG/5 ML VIAL (BRIDION) As Ordered ONE (15:10)
[2019-12-26] MEDS ORDERED: SIMETHICONE 80 MG CHEW TAB PO PRN (15:45)
--- NOTE | 2019-12-26 15:50 | ROOPDOC ---
[facility] Report Of Operation Report of Operation DATE OF PROCEDURE: 12/26/19 PREPROCEDURE DIAGNOSES: Cholelithiasis with acute cholecystitis. POSTPROCEDURE DIAGNOSES: Cholelithiasis with acute cholecystitis. PROCEDURE: Laparoscopic Cholecystectomy. SURGEON: Kerry Mary MD MANAGER OF DIGITAL:Jose Mack (MS III) ANESTHESIA: General Anesthesia. ESTIMATED BLOOD LOSS: Approximately 20 mL. COMPLICATIONS: none. REMARKS: 39 M with CP with severe epigastric and RUQ pain x 4 days seen in the ER, with leukocytosis and evidence for cholelithiasis and distended gb. PROCEDURE NOTE: Intraoperative findings show tensely distended gallbladder with relatively thin-walled may be at best mild pericholecystic edema. There is a large stone at the lower body and neck of the gallbladder. The aspirated bile looks thick. The distal half of the appendix is visualized without any signs of any inflammation to suggest he has acute appendicitis. Moderate amounts of thick omentum covering most of the bowel with no evidence for free fluid or other inflammatory findings. DESCRIPTION OF PROCEDURE: Patient was given a dose Unasyn 3 g IV preoperatively for prophylaxis. She was brought to the operating room, laid supine on the table, compression boots pl aced for DVT prophylaxis. General endotracheal anesthesia started. Her abdomen then prepped and draped in usual sterile fashion. Surgical timeout was performed prior to starting surgery. Entry into the abdomen done through an incision above the umbilicus. A Veress needle was inserted with a controlled fashion. CO2 insufflation started to pressure 15 mmHg. Using the same incision a 5 mm Visiport was placed under direct vision laparoscope. The area underneath the insertion site was inspected and no injury found. She was then placed in steep reverse Trendelenburg. Her right side was tilted up to further expose the gallbladder. Under direct vision a 11 mm epigastric port and Two 5 mm working ports placed along the right subcostal line. Operative findings: The fundus of the gallbladder was grasped and the gallbladder was elevated superiorly exposing the neck of the gallbladder. The infundibulum identified and retracted laterally. The peritoneum overlying the area was opened up and dissected free both anteriorly and posteriorly to help with retraction of the gallbladder. The hepatocystic triangle was approached and dissected using a Coby costa and instrument. The cystic duct was identified coming off from the neck of thr gallbladder; this was circumferentially dissected. The cystic artery was identified in its usual position medially behind a small lymph node of Calot. This was similarly circumferentially dissected off surrounding adipose tissue. We continued posterior dissection further taking down the fibroadipose tissue at the cystic plate clearing this off from the neck of the gallbladder proceeding proximally until a critical view of safety was achieved whereby only the previously identified duct and artery coursing through the neck the gallbladder. At this point the cystic artery was clipped 4 times and divided. After again checking her anatomy and verifying that the previously identified cystic duct, this was also clipped 4 times and divided. The rest of the gallbladder was then dissected free of the gallbladder bed using Bovie cautery. There was minimal bleeding at the lateral gallbladder attachments to the liver capsule this was easily controlled with Bovie cautery. The gallbladder was then placed in an Endo Catch bag and retrieved outside through the epigastric port site. After re- insufflation and inspected the clips and noted this to be in place. No further bleeding noted. No bile leakage noted. The abdomen was deflated all ports were removed. The epigastric fascial defect repaired with 0 Vicryl in a mattress fashion. Rest of the skin incisions closed with 4-0 Monocryl in subcuticular fashion. Steri-Strips and gauze dressings were placed, the wound. Patient was informed they awakened, extubated and brought to recovery room stable KERRY MARY MD Dec 26, 2019 15:50
[2019-12-26] MEDS ORDERED: LR 1,000 ML IV SCH (16:00)
[2019-12-26] MEDS ORDERED: oxyCODONE 5MG TAB PO PRN (16:00)
[2019-12-26] MEDS ORDERED: METOCLOPRAMIDE INJ 10MG/2ML VIAL (J2765) IV PRN (16:00)
[2019-12-26] MEDS ORDERED: fentaNYL 100 MCG/2 ML INJECTION (J3010) IV PRN (16:00)
[2019-12-26] MEDS ORDERED: ONDANSETRON 4MG/2ML VIAL (J2405) IV PRN (16:00)
[2019-12-26] MEDS: DIVALPROEX SPRINKLE 125 MG CAP PO SCH ×2 (17:00→20:32)
[2019-12-26] MEDS: FIBER-CON 625 MG TAB PO SCH ×2 (17:00→20:32)
[2019-12-26 18:03] VITALS: BP 162/82
[2019-12-26 18:33] VITALS: BP 150/88
[2019-12-26] MEDS: LORazepam 2 MG/ML VIAL (J2060) IV PRN (18:39)
[2019-12-26] MEDS: SUCRALFATE SUSP 1GM/10ML UD PO SCH ×2 (18:39→20:32)
[2019-12-26] MEDS: KCL 40MEQ in NS 1000ML 1,000 ML IV SCH ×2 (18:40→23:15)
[2019-12-26] MEDS: PANTOPRAZOLE 40MG INJ (PROTONIX) (C9113) IV SCH (18:48)
[2019-12-26] MEDS: DOXYCYCLINE HYCLATE 100 MG in D5W MINI-BAG PLUS 100 ML IV SCH (19:05)
[2019-12-26 19:33] VITALS: BP 138/88
[2019-12-26 20:30] VITALS: BP 154/96
[2019-12-26] MEDS: lamoTRIgine 100MG TAB PO SCH (20:32)
[2019-12-26] MEDS: HEPARIN SOD (PORCINE) 5000 UNITS/ML VIAL (J1644 PER 1000UNITS) SC SCH (20:33)
[2019-12-26] MEDS ORDERED: clonazePAM 0.5 MG TAB PO SCH (21:00)
[2019-12-26 21:30] VITALS: BP 152/92
[2019-12-26 22:30] VITALS: BP 134/78
[2019-12-26] MEDS: HYDROMORPHONE HCL 0.5 MG/ 0.5 ML SYRINGE (J1170 PER 1) IV PRN (22:49)
[2019-12-27 02:00] VITALS: BP 132/78
[2019-12-27] MEDS: PANTOPRAZOLE 40MG INJ (PROTONIX) (C9113) IV SCH ×2 (02:30→16:14)
[2019-12-27] MEDS: AMPICILLIN SOD/SULBACTAM SOD 3 GM in D5W MINI-BAG PLUS 100 ML IV SCH ×4 (02:30→20:44)
[2019-12-27] MEDS: HYDROMORPHONE HCL 0.5 MG/ 0.5 ML SYRINGE (J1170 PER 1) IV PRN (02:31)
[2019-12-27] MEDS: DOXYCYCLINE HYCLATE 100 MG in D5W MINI-BAG PLUS 100 ML IV SCH ×2 (02:59→17:35)
[2019-12-27 06:00] VITALS: BP 135/72
[2019-12-27 06:09] LABS: HEMATOCRIT 38.5 % (42.0-52.0); MEAN CORPUSCULAR HEMOGLOBIN 29.3 pg (27.0-33.0); MEAN CORPUSCULAR HGB CONC 31.7 g/dl (32.0-36.5); MEAN CORPUSCULAR VOLUME 92.3 fl (80.0-96.0); PLATELET COUNT, AUTOMATED 322 10^3/uL (150-450); RED BLOOD COUNT 4.17 10^6/uL (4.30-6.10)
[2019-12-27 06:17] LABS: HEMOGLOBIN 12.2 g/dl (13.5-17.5); WHITE BLOOD COUNT 15.5 10^3/uL (4.0-10.0)
[2019-12-27 06:34] LABS: ALBUMIN 3.1 GM/DL (3.2-5.2); ALT/SGPT 31 U/L (12-78); BILIRUBIN,TOTAL 0.3 MG/DL (0.2-1.0); BLOOD UREA NITROGEN 8 MG/DL (7-18); CALCIUM LEVEL 8.9 MG/DL (8.5-10.1); CARBON DIOXIDE LEVEL 28 MEQ/L (21-32); CHLORIDE LEVEL 111 MEQ/L (98-107); CREATININE FOR GFR 0.59 MG/DL (0.70-1.30); GLOMERULAR FILTRATION RATE > 60.0 (>60); GLUCOSE, FASTING 88 MG/DL (70-100); POTASSIUM SERUM 3.5 MEQ/L (3.5-5.1); SODIUM LEVEL 146 MEQ/L (136-145); TOTAL PROTEIN 6.6 GM/DL (6.4-8.2)
[2019-12-27 06:51] LABS: ATYPICAL LYMPH 2 % (0-5); LYMPHOCYTES 32 % (16-44); MONOCYTES 5 % (0-5); NEUTROPHILS 61 % (28-66); PLATELET ESTIMATE NORMAL (NORMAL); POLYCHROMASIA 1+
[2019-12-27] MEDS: lamoTRIgine 100MG TAB PO SCH ×2 (08:37→20:44)
[2019-12-27] MEDS: SUCRALFATE SUSP 1GM/10ML UD PO SCH ×4 (08:37→20:44)
[2019-12-27] MEDS: DIVALPROEX SPRINKLE 125 MG CAP PO SCH ×4 (08:38→20:45)
[2019-12-27] MEDS: VITAMIN D 1,000 INTERNATIONAL UNITS TABLET PO SCH (08:38)
[2019-12-27] MEDS: FIBER-CON 625 MG TAB PO SCH ×4 (08:38→20:44)
[2019-12-27] MEDS: HEPARIN SOD (PORCINE) 5000 UNITS/ML VIAL (J1644 PER 1000UNITS) SC SCH ×2 (08:38→21:05)
--- NOTE | 2019-12-27 10:23 | IPNPDOC ---
Subjective Date Seen The patient was seen on 12/27/19. Subjective Chief Complaint/HPI Pt nonverbal, aunt at bedside. She has no new concerns this morning. His mom was at bedside this morning, she is also without new concerns. General: Reports: ROS Unobtainable Objective Physical Examination General Exam: Positive: Alert, No Acute Distress ENT Exam: Positive: Mucous membr. moist/pink Chest Exam: Positive: Normal air movement; Negative: Clear to auscultation Heart Exam: Positive: Rate Normal, Normal S1, Normal S2 Abdomen Exam: Positive: Soft; Negative: Tenderness Extremity Exam: Negative: Edema Neuro Exam: Negative: Normal Speech, Reflexes 2+ Psych Exam: Negative: Mental status NL, Mood NL Assessment /Plan Problems (1) Cholelithiasis Status: Acute Response to Treatment: Stable Problem Specific Plan: Monitor Clinically Problem Text: Pt s/p cholecystecomy per Dr Turcios, post op care and mgmt per . Appears comfortable, family also without concerns. Afebrile, WBC down slightly monitor closely. (2) Cerebral palsy Status: Chronic Response to Treatment: Stable (3) Nonverbal Status: Chronic Response to Treatment: Stable Plan/VTE VTE Prophylaxis Ordered?: Yes VS, I&O, 24H, [facility] Vital Signs/I&O Vital Signs Date Time Temp Pulse Resp B/P (MAP) Pulse Ox O2 Delivery O2 Flow Rate FiO2 12/27/19 06:00 97.9 110 20 135/72 (93) 94 Room Air 12/26/19 16:27 2 I&O- Last 24 Hours up to 6 AM 12/27/19 06:00 Intake Total 2480 ml Output Total 20 ml Balance 2460 ml Laboratory Data 24H LABS Laboratory Tests 2 12/26/19 13:40: Lactic Acid Level 1.4, Total Creatine Kinase 608H, Creatine Kinase MB 3.0, Creatine Kinase MB Relative Index 0.49, Troponin I < 0.02 12/27/19 05:49: Lymphocytes # (Auto) , Nucleated Red Blood Cells % (auto) 0.0, Neutrophils 61, Lymphocytes (Manual) 32, Monocytes (Manual) 5, Atypical Lymphocytes 2, Polychromasia 1+, Platelet Estimate NORMAL, Anion Gap 7L, Glomerular Filtration Rate > 60.0, Calcium Level 8.9, Total Bilirubin 0.3, Aspartate Amino Transf (AST/SGOT) 33, Alanine Aminotransferase (ALT/SGPT) 31, Alkaline Phosphatase 99, Total Protein 6.6#, Albumin 3.1L, Albumin/Globulin Ratio 0.89L CBC/BMP Laboratory Tests 12/27/19 05:49 Microbiology Microbiology 12/26/19 Blood Culture, Received Pending 12/26/19 Blood Culture, Received Pending KUN CHAVEZ PA-C Dec 27, 2019 10:23
--- NOTE | 2019-12-27 10:47 | IPNPDOC ---
Text Note Date of Service The patient was seen on 12/27/19. NOTE POD1 Laparoscopic cholecystectomy for cholelithiasis, acute cholecystitis seems to be at baseline now according to aunt. He is tolerating clears. I will advance him to his pureed diet. He is afebrile. Still with some tachycardia and persistent leukocytosis. His gb was tensely distended from an impacted stone but not terribly inflamed, not sure if I would attribute the wbc to cholecystitis. Technically speaking does not need further abx as his gb is out. I will leave the decision for the abx to the primary service if there are other concerns for nidus of infection. VS,Fishbone, I+O VS, Fishbone, I+O Laboratory Tests 12/27/19 05:49 Vital Signs Date Time Temp Pulse Resp B/P (MAP) Pulse Ox O2 Delivery O2 Flow Rate FiO2 12/27/19 10:00 98.3 99 18 92 Room Air 12/27/19 06:00 135/72 (93) 12/26/19 16:27 2 I&O- Last 24 Hours up to 6 AM 12/27/19 05:59 Intake Total 2480 ml Output Total 20 ml Balance 2460 ml KERRY MARY MD Dec 27, 2019 10:47
[2019-12-27] MEDS: KCL 40MEQ in NS 1000ML 1,000 ML IV SCH ×2 (12:13→20:44)
[2019-12-27 14:00] VITALS: BP 138/90
[2019-12-27 18:00] VITALS: BP 150/90
[2019-12-27 22:00] VITALS: BP 148/88
[2019-12-28 02:00] VITALS: BP 129/85
[2019-12-28] MEDS: KCL 40MEQ in NS 1000ML 1,000 ML IV SCH (03:18)
[2019-12-28] MEDS: PANTOPRAZOLE 40MG INJ (PROTONIX) (C9113) IV SCH ×2 (03:18→13:57)
[2019-12-28] MEDS: DOXYCYCLINE HYCLATE 100 MG in D5W MINI-BAG PLUS 100 ML IV SCH ×2 (03:18→16:56)
[2019-12-28] MEDS: AMPICILLIN SOD/SULBACTAM SOD 3 GM in D5W MINI-BAG PLUS 100 ML IV SCH ×3 (03:18→13:57)
[2019-12-28 06:00] VITALS: BP 108/78
[2019-12-28 06:53] LABS: HEMOGLOBIN 12.3 g/dl (13.5-17.5); MEAN CORPUSCULAR HEMOGLOBIN 29.7 pg (27.0-33.0); MEAN CORPUSCULAR HGB CONC 32.4 g/dl (32.0-36.5); MEAN CORPUSCULAR VOLUME 91.8 fl (80.0-96.0); PLATELET COUNT, AUTOMATED 296 10^3/uL (150-450); RED BLOOD COUNT 4.14 10^6/uL (4.30-6.10)
[2019-12-28 06:55] LABS: WHITE BLOOD COUNT 12.5 10^3/uL (4.0-10.0)
[2019-12-28 07:12] LABS: ATYPICAL LYMPH 6 % (0-5); EOSINOPHILS 2 % (0-3); LYMPHOCYTES 39 % (16-44); MONOCYTES 5 % (0-5); NEUTROPHILS 48 % (28-66)
[2019-12-28 07:13] LABS: PLATELET ESTIMATE NORMAL (NORMAL)
[2019-12-28 07:17] LABS: ALBUMIN 2.9 GM/DL (3.2-5.2); ALT/SGPT 31 U/L (12-78); BILIRUBIN,TOTAL 0.3 MG/DL (0.2-1.0); BLOOD UREA NITROGEN 4 MG/DL (7-18); CALCIUM LEVEL 8.8 MG/DL (8.5-10.1); CARBON DIOXIDE LEVEL 27 MEQ/L (21-32); CHLORIDE LEVEL 107 MEQ/L (98-107); CREATININE FOR GFR 0.54 MG/DL (0.70-1.30); GLOMERULAR FILTRATION RATE > 60.0 (>60); GLUCOSE, FASTING 87 MG/DL (70-100); POTASSIUM SERUM 3.6 MEQ/L (3.5-5.1); SODIUM LEVEL 141 MEQ/L (136-145); TOTAL PROTEIN 6.7 GM/DL (6.4-8.2)
[2019-12-28] MEDS: DIVALPROEX SPRINKLE 125 MG CAP PO SCH ×3 (09:16→16:56)
[2019-12-28] MEDS: HEPARIN SOD (PORCINE) 5000 UNITS/ML VIAL (J1644 PER 1000UNITS) SC SCH (09:16)
[2019-12-28] MEDS: SUCRALFATE SUSP 1GM/10ML UD PO SCH ×3 (09:16→16:56)
[2019-12-28] MEDS: lamoTRIgine 100MG TAB PO SCH (09:17)
[2019-12-28] MEDS: FIBER-CON 625 MG TAB PO SCH ×3 (09:17→16:57)
[2019-12-28] MEDS: VITAMIN D 1,000 INTERNATIONAL UNITS TABLET PO SCH (09:17)
--- NOTE | 2019-12-28 13:20 | IPN ---
DATE: 12/28/2019 HISTORY: Patient is now postop day #2 from a laparoscopic cholecystectomy for cholelithiasis and abdominal pain. According to the mother, the patient has been doing very well. She indicates that he is not indicating the presence of any pain. He has been tolerating a regular diet, though the food choices have not been ideal, according to mom. His urine output is excellent. He remains on some intravenous (IV) fluid. He has not had any pain medications since early yesterday morning. Vital signs show that he has been afebrile over the last 24 hours. His pulse has come down from the 100s and one-teens to 82 this morning. His blood pressure is good and his room air oxygen saturation (cut off). Intake and output shows that his intake yesterday was 3100 mL with multiple incontinent voids. This morning he has taken adequate oral intake. His urine output is 500 recorded plus. PHYSICAL EXAMINATION: The patient is vocalizing some unintelligible sounds, but appears somewhat alert and comfortable, according to the mother. By report from the chart, he is at baseline nonverbal, but the mother interprets that he is doing well with no pain. Heart exam shows a regular rhythm and lungs are clear. The abdomen is mildly protuberant. His incisions appear clean. He has some bowel sounds present in the abdomen is without undue tenderness. Laboratory studies today include a complete blood count (CBC) with a white count of 12, hemoglobin 12, hematocrit 38 and platelet count of 296,000. Differential count is normal, with the exception of 6 atypical lymphocytes. Chemistry profile shows normal electrolytes with a BUN of 4, creatinine 0.5 and a glucose of 87. Liver function tests are normal. We do not have his pathology report from surgery back yet and blood cultures done at the time of admission show no growth to date. IMPRESSION: Patient appears to be doing very well 2 days postop from his cholecystectomy. His mother reports he is taking a diet well, voiding well and is comfortable. RECOMMENDATIONS: At this point I have no objections to the patient being discharged as early as today. I will leave the final decision, of course, to the primary service, which is family practice. The patient should follow up with Dr. Turcios in the office approximately 10 days postop for a final postop check. He can continue a regular diet and his usual medications.
[2019-12-28] MEDS ORDERED: LORazepam 2 MG/ML VIAL (J2060) As Ordered ONE (13:52)
[2019-12-28] MEDS: LORazepam 2 MG/ML VIAL (J2060) IV PRN (13:58)
[2019-12-28 14:00] VITALS: BP 149/86
[2019-12-28] MEDS ORDERED: DOXY-350 PO (15:08)
[2019-12-28] MEDS ORDERED: CEFD1CAP8 PO (15:08)
--- NOTE | 2019-12-28 15:46 | DS.PDOC ---
Discharge Summary General Date of Admission Dec 26, 2019 at 13:12 Date of Discharge 12/28/2019 Primary Care Physician: Randolph Perez MD Specialist/Consultants Involve: KERRY MARY MD Discharge Summary PROCEDURES PERFORMED DURING STAY: cholecystectomy ADMITTING DIAGNOSES: 1. Sepsis 2. Abdominal pain - possibly 2/2 biliary colic 3. Behavioral changes 4. Cerebral palsy 5. Seizure disorder 6. hx of Nephrolithiasis 7. hx of Cholelithiasis 8. GERD DISCHARGE DIAGNOSES: 1. cholelithiasis 2. pneumonia 3. cerebral palsy 4. nonverbal 5. seizure disorder 6. GERD COMPLICATIONS/CHIEF COMPLAINT: Abd Pain Cholelithiasis. HISTORY OF PRESENT ILLNESS: Patient is a 39-year-old male with a PMHx of Cerebral palsy (non-verbal at baseline), Seizure disorder, Hx of Nephrolithiasis, Hx of Cholelithiasis, GERD who presented to the emergency room with complaint of abdominal pain. Patient is nonverbal at baseline and his family members were present to provide details to his history. Patients family has reported that he has had significant changes in his behavior much more pronounced over the last 1 week. They have reported that this is indicative of something going on and they report that hes been scratching his abdomen, indicating discomfort. At home he has experienced some loss of weight over 6 months, however, has been able to regain his weight over the last 6 months. His family has been encouraging increased oral intake and he has been tolerating an oral diet. However, this morning he did have an episode of vomiting. No fevers or chills were reported at home. HOSPITAL COURSE: Patient was admitted to the hospital and started on doxycycline and Unasyn. He had a cholecystectomy on 12/26. He did clinically improve, with improved leukocytosis, and never required supplemental O2. By 12/28, he was tolerating a regular diet and back to his usual behavior. Mother felt comfortable bringing him home. DISCHARGE MEDICATIONS: Please see below. ALLERGIES: Please see below. PHYSICAL EXAMINATION ON DISCHARGE: VITAL SIGNS: Please see below. GENERAL: obese, resting quietly in bed HEENT: mucous membranes moist CARDIOVASCULAR EXAMINATION: regular rate and rhythm RESPIRATORY EXAMINATION: clear, no wheezing, coughed once during exam ABDOMINAL EXAMINATION: clean surgical incisions, soft, nontender and nondistended SKIN: clean, dry, intact except recent incisions PSYCHIATRIC EXAMINATION: nonverbal, does not follow instruction LABORATORY DATA: Please see below. IMAGING: CXR 12/26 shows subtle infiltrates right base and left perihilar region. Gallbladder US showed cholelithiasis. CT abdomen and pelvis showed 1. Punctate nonobstructing bilateral nephroliths. No acute urinary tract pathology. 2. No acute abdominopelvic pathology. PROGNOSIS: good ACTIVITY: [As tolerated]. DIET: regular DISCHARGE PLAN: home DISPOSITION: home with family DISCHARGE INSTRUCTIONS: 1. Take all medications as prescribed. Contact the office with fever, worsening abdominal discomfort, inability to tolerate diet, or any other concerning symptoms. Call Dr. Mary's office on Monday for an appt ITEMS TO FOLLOWUP ON ON OUTPATIENT: 1. DISCHARGE CONDITION: [Stable]. TIME SPENT ON DISCHARGE: Greater than 10 minutes. Vital Signs/I&Os Vital Signs Date Time Temp Pulse Resp B/P (MAP) Pulse Ox O2 Delivery O2 Flow Rate FiO2 12/28/19 06:00 96.8 82 18 108/78 (88) 92 Room Air 12/26/19 16:27 2 I&O- Last 24 Hours up to 6 AM 12/28/19 06:00 Intake Total 2940 ml Balance 2940 ml Laboratory Data Labs 24H Laboratory Tests 2 12/28/19 06:21: Lymphocytes # (Auto) , Nucleated Red Blood Cells % (auto) 0.0, Neutrophils 48, Lymphocytes (Manual) 39, Monocytes (Manual) 5, Eosinophils (Manual) 2, Atypical Lymphocytes 6H, Red Blood Cell Morphology NORMAL, Platelet Estimate NORMAL, Anion Gap 7L, Glomerular Filtration Rate > 60.0, Calcium Level 8.8, Total Bilirubin 0.3, Aspartate Amino Transf (AST/SGOT) 31, Alanine Aminotransferase (ALT/SGPT) 31, Alkaline Phosphatase 95, Total Protein 6.7, Albumin 2.9L, Albumin/Globulin Ratio 0.76L CBC/BMP Laboratory Tests 12/28/19 06:21 Microbiology Microbiology 12/26/19 Blood Culture - Preliminary, Resulted No growth after 24 hours . All specim... 12/26/19 Blood Culture - Preliminary, Resulted No Growth after 48 hours. All Specime... Discharge Medications Scheduled Calcium Polycarbophil (Fibercon) 625 Mg Tablet, 625 MG PO QID, (Reported) Cefdinir (Cefdinir) 300 Mg Capsule, 1 CAP PO BID Cholecalciferol (Vitamin D3) (Vitamin D3) 1,000 Unit Tablet, 1,000 UNITS PO DAILY, (Reported) Clonazepam (Clonazepam) 0.5 Mg Tab, 0.5 MG PO BID, (Reported) TAKES AT 1230 AND 2100 Divalproex Sodium (Depakote Sprinkle) 125 Mg Cap.spr, 250 MG PO QID, (Reported) Doxycycline Monohydrate (Doxycycline) 100 Mg Capsule, 1 CAP PO BID Lamotrigine (Lamotrigine) 100 Mg Tab, 100 MG PO BID, (Reported) Levocarnitine (Levocarnitine) 330 Mg Tab, 330 MG PO TID, (Reported) Omeprazole (Omeprazole) 40 Mg Cap, 40 MG PO DAILY, (Reported) TAKES AT 1230 Simethicone (Gas Relief) 125 Mg Capsule, 125 MG PO PCHS, (Reported) Sucralfate (Sucralfate) 1 Gm/10 Ml Oral.susp, 1 GM PO ACHS, (Reported) Scheduled PRN Albuterol Sulf (Albuterol Sulfate) 2.5 Mg/3 Ml Nebu, 2.5 MG INH QID PRN for SHORTNESS OF BREATH, (Reported) Baclofen (Baclofen) 10 Mg Tablet, 5 MG PO TID PRN for MUSCLE SPASMS, (Reported) Allergies Coded Allergies: azithromycin (Verified Allergy, Unknown, hives, 08/01/19) DRU OLIVERA DO Dec 28, 2019 15:46
== END 2019-12-28 18:34 | disposition home or self-care (01) | DRG 263 ==
LOC: EDBD 08:36 → M ED 08:36 → M ED INP 13:12 → M MSPAV 18:02
PROVIDERS: ADMIT Internal Medicine; ATTEND Family Medicine
PROC: 0FT44ZZ Resection of Gallbladder, Percutaneous Endoscopic Approach (ICD-10-PCS; principal; 2019-12-26 14:00)
DX: K80.20 Calculus of gallbladder without cholecystitis without obstruction (principal); J18.9 Pneumonia, unspecified organism; G40.909 Epilepsy, unspecified, not intractable, without status epilepticus; G80.9 Cerebral palsy, unspecified; K21.9 Gastro-esophageal reflux disease without esophagitis; Z79.899 Other long term (current) drug therapy; Z88.8 Allergy status to other drugs, medicaments and biological substances

== ENCOUNTER 2019-12-31 17:46 | Emergency (ER) | payer MEDICAID ==
[2019-12-31 17:46] VITALS: BP 129/89
[~2019-12-31 17:46] MED LIST changes: -DOXY100C
[2019-12-31] MEDS ORDERED: DOXY100C (17:56)
--- NOTE | 2019-12-31 20:34 | ECGEPIP ---
[facility] - ED Test Date: 2019-12-31 Pat Name: FANNIE HEART Department: Room: - Gender: Male Manager Demand: malgorzata gan : 1980 Requested By: THUAN Dixon Order Number: [id number] Reading MD: Catina Amaya Measurements Intervals [place] Rate: 104 P: 42 DE: 123 QRS: 28 QRSD: 85 T: 53 QT: 324 QTc: 428 Interpretive Statements SINUS TACHYCARDIA NONSPECIFIC T-WAVE ABNORMALITY ABNORMAL RHYTHM ECG INCREASED RATE 09/14/17 Electronically Signed on 12-31-2019 20:34:24 EST by Catina Amaya
[2019-12-31] MEDS ORDERED: ISOVUE-370 76% 100ML VIAL (Q9967) As Ordered ONE (20:57)
[2019-12-31] MEDS ORDERED: ACETAMINOPHEN 325 MG/10.15 ML UDC PO ONE (21:30)
--- NOTE | 2020-01-01 09:50 | REP ---
Clinical: Dyspnea with elevated D-dimer levels. Technique: Axial contrast enhanced images from the thoracic inlet to the upper abdomen using 100 ml Isovue 370 intravenous contrast material with multiplanar re-formations. Findings: Satisfactory enhancement of the pulmonary vasculature is achieved but evaluation is limited by motion artifact, and no obvious filling defects are identified in the main and proximal pulmonary arteries. The bilateral lung duke are well-aerated and clear without consolidation. Small left lower lobe pulmonary nodules measuring up to 8 mm cannot be excluded. No effusion. No pneumothorax. No obvious adenopathy. Tracheobronchial tree is patent. Further evaluation of the mediastinum demonstrates normal thoracic aorta and heart/pericardium. Musculoskeletal structures are intact. Impression: Limited by motion artifact. No obvious pulmonary embolus. Cannot exclude noncalcified nodules in the left lower lobe measuring to 8 mm. Electronically Signed by Don Pierre MD 01/01/2020 08:01 A
--- NOTE | 2020-01-01 11:21 | ED PDOC ---
Post-Departure Follow-Up radiology report faxed to Catina Hughes MD Jan 01, 2020 11:21
== END 2019-12-31 22:39 | disposition home or self-care (01) ==
LOC: M ED 17:46
DX: R79.1 Abnormal coagulation profile (principal); R00.0 Tachycardia, unspecified; R91.1 Solitary pulmonary nodule; G80.9 Cerebral palsy, unspecified; D72.829 Elevated white blood cell count, unspecified; Z88.1 Allergy status to other antibiotic agents; Z79.51 Long term (current) use of inhaled steroids; Z79.899 Other long term (current) drug therapy
CPT/HCPCS: 71275; 93005; 93041; 99284; Q9967

== ENCOUNTER → 2019-12-31 | Outpatient (CLI) | payer MEDICAID ==
[~2019-12-31] MED LIST changes: +ALBU83IN NEB; +CEFD1CAP8 PO; +CVS125CA3 PO; +DEPA1CAP PO; +DOXY-350 PO; +DOXY100C; +FIBE625T PO; +SUCR1ORA2 PO; +TAB-TAB5 PO; +VITAD1000T PO
--- NOTE | 2019-12-31 12:28 | REPPI ---
Clinical: Right lower lobe pneumonia . Comparison: 12/26/2019 . Technique: PA and lateral. Findings: Examination is limited by technique and positioning. No obvious focal consolidation or effusion. No pneumothorax. Visualized portions of the mediastinum and cardiac silhouette appear normal. Skeletal structures intact. Impression: 1. No definite focal consolidation or effusion. Electronically Signed by Don Pierre MD 12/31/2019 12:20 P
[2019-12-31 13:20] LABS: MEAN CORPUSCULAR HEMOGLOBIN 29.4 pg (27.0-33.0); MEAN CORPUSCULAR HGB CONC 32.6 g/dl (32.0-36.5); PLATELET COUNT, AUTOMATED 499 10^3/uL (150-450); RED BLOOD COUNT 5.11 10^6/uL (4.30-6.10)
[2019-12-31 13:25] LABS: WHITE BLOOD COUNT 18.3 10^3/uL (4.0-10.0)
[2019-12-31 13:45] LABS: ALT/SGPT 72 U/L (12-78); BILIRUBIN,TOTAL 0.4 MG/DL (0.2-1.0); BLOOD UREA NITROGEN 22 MG/DL (7-18); C REACTIVE PROTEIN QUANTITATIV 2.34 MG/DL (0.00-0.30); CARBON DIOXIDE LEVEL 21 MEQ/L (21-32); CHLORIDE LEVEL 108 MEQ/L (98-107); GLOMERULAR FILTRATION RATE > 60.0 (>60); GLUCOSE, FASTING 83 MG/DL (70-100); LDH LACTATE DEHYDROGENASE 269 U/L (87-241); POTASSIUM SERUM 3.8 MEQ/L (3.5-5.1); SODIUM LEVEL 140 MEQ/L (136-145)
[2019-12-31 13:53] LABS: ATYPICAL LYMPH 2 % (0-5); LYMPHOCYTES 31 % (16-44); NEUTROPHILS 67 % (28-66)
[2019-12-31 13:54] LABS: PLATELET ESTIMATE NORMAL (NORMAL)
[2019-12-31 13:57] LABS: ERYTHROCYTE SEDIMENTATION RATE 43 mm/hr (0-15)
== END ==
LOC: M PLAIMG 11:12
PROVIDERS: ATTEND Physician Assistant Medical
DX: A41.9 Sepsis, unspecified organism (principal); J18.9 Pneumonia, unspecified organism

== ENCOUNTER 2020-02-07 15:08 | Emergency (ER) | payer MEDICAID ==
[~2020-02-07 15:08] MED LIST changes: +DOXY100C
[2020-02-07] MEDS ORDERED: FLEET ENEMA PR ONE (16:15)
--- NOTE | 2020-02-07 16:36 | REP ---
KUB ABDOMEN AND PELVIS: Two KUB films of the abdomen and pelvis performed. Bowel gas pattern is normal with no evidence of bowel obstruction. Metallic clips are seen in the right upper quadrant. I see no other significant finding. IMPRESSION: Normal bowel gas pattern with no evidence of bowel obstruction. Electronically Signed by Andre Rousseau MD 02/07/2020 04:38 P
[2020-02-07] MEDS ORDERED: SOD POLYSTYRENE SULFONATE SUSP 15 GM/60 ML UD PO ONE ×2 (17:30→19:00)
[2020-02-07] MEDS ORDERED: COLA100C5 PO (18:23)
[2020-02-07 18:45] VITALS: BP 115/57
== END 2020-02-07 19:02 | disposition home or self-care (01) ==
LOC: M ED 15:08
DX: K59.00 Constipation, unspecified (principal); R11.10 Vomiting, unspecified; G80.9 Cerebral palsy, unspecified; K21.9 Gastro-esophageal reflux disease without esophagitis; Z88.1 Allergy status to other antibiotic agents; Z79.51 Long term (current) use of inhaled steroids; Z79.899 Other long term (current) drug therapy

== ENCOUNTER → 2020-03-26 | Outpatient (CLI) | payer MEDICAID ==
[~2020-03-26] MED LIST changes: +COLA100C5 PO
[2020-03-26 12:37] LABS: BASO # 0.1 10^3/uL (0.0-0.2); BASO % 0.5 % (0.0-1.0); EOS # 0.1 10^3/uL (0.0-0.5); EOS % 1.2 % (0.0-3.0); HEMATOCRIT 43.6 % (42.0-52.0); HEMOGLOBIN 13.9 g/dl (13.5-17.5); LYMPH % 45.4 % (24.0-44.0); MEAN CORPUSCULAR HEMOGLOBIN 29.2 pg (27.0-33.0); MEAN CORPUSCULAR HGB CONC 31.9 g/dl (32.0-36.5); MEAN CORPUSCULAR VOLUME 91.6 fl (80.0-96.0); MONO # 0.6 10^3/uL (0.0-0.8); NEUTROPHILS # 5.2 10^3/uL (1.5-8.5); NEUTROPHILS % 47.6 % (36.0-66.0); PLATELET COUNT, AUTOMATED 474 10^3/uL (150-450); RED BLOOD COUNT 4.76 10^6/uL (4.30-6.10)
[2020-03-26 12:51] LABS: VALPROIC ACID (DEPAKOTE) 80.3 UG/ML (50.0-100.0)
[2020-03-30 08:08] LABS: LAMOTRIGINE (LAMICTAL) 16.8 ug/mL (2.0-20.0)
== END ==
LOC: M LAB 11:44
PROVIDERS: ATTEND Physician Assistant Medical
DX: R56.9 Unspecified convulsions (principal)

== ENCOUNTER → 2020-04-23 | Outpatient (CLI) | payer MEDICAID ==
[2020-04-23 12:44] LABS: BASO # 0.1 10^3/uL (0.0-0.2); BASO % 0.5 % (0.0-1.0); EOS # 0.1 10^3/uL (0.0-0.5); EOS % 0.9 % (0.0-3.0); HEMATOCRIT 42.2 % (42.0-52.0); HEMOGLOBIN 13.5 g/dl (13.5-17.5); LYMPH # 5.3 10^3/uL (1.5-5.0); MEAN CORPUSCULAR HEMOGLOBIN 29.5 pg (27.0-33.0); MEAN CORPUSCULAR VOLUME 92.1 fl (80.0-96.0); MONO # 0.7 10^3/uL (0.0-0.8); MONO % 5.1 % (0.0-5.0); NEUTROPHILS % 53.3 % (36.0-66.0); PLATELET COUNT, AUTOMATED 398 10^3/uL (150-450); RED BLOOD COUNT 4.58 10^6/uL (4.30-6.10)
[2020-04-23 12:50] LABS: WHITE BLOOD COUNT 13.2 10^3/uL (4.0-10.0)
== END ==
LOC: M LAB 12:02
PROVIDERS: ATTEND Physician Assistant Medical
DX: R56.9 Unspecified convulsions (principal); D47.3 Essential (hemorrhagic) thrombocythemia

== ENCOUNTER → 2020-08-03 | Outpatient (CLI) | payer MEDICAID ==
[~2020-08-03] MED LIST changes: +D31000TA2 PO; -VITAD1000T PO
[2020-08-03 12:49] LABS: BASO # 0.1 10^3/uL (0.0-0.2); BASO % 0.5 % (0.0-1.0); EOS # 0.2 10^3/uL (0.0-0.5); EOS % 1.4 % (0.0-3.0); HEMATOCRIT 45.6 % (42.0-52.0); HEMOGLOBIN 14.4 g/dl (13.5-17.5); LYMPH # 5.6 10^3/uL (1.5-5.0); LYMPH % 46.9 % (24.0-44.0); MEAN CORPUSCULAR HEMOGLOBIN 29.1 pg (27.0-33.0); MEAN CORPUSCULAR HGB CONC 31.6 g/dl (32.0-36.5); MEAN CORPUSCULAR VOLUME 92.3 fl (80.0-96.0); MONO # 0.7 10^3/uL (0.0-0.8); MONO % 5.5 % (0.0-5.0); NEUTROPHILS # 5.4 10^3/uL (1.5-8.5); NEUTROPHILS % 45.4 % (36.0-66.0); PLATELET COUNT, AUTOMATED 358 10^3/uL (150-450); RED BLOOD COUNT 4.94 10^6/uL (4.30-6.10)
[2020-08-03 12:55] LABS: WHITE BLOOD COUNT 11.8 10^3/uL (4.0-10.0)
[2020-08-03 13:38] LABS: ALBUMIN 3.7 GM/DL (3.2-5.2); ALT/SGPT 16 U/L (12-78); BILIRUBIN,TOTAL 0.1 MG/DL (0.2-1.0); BLOOD UREA NITROGEN 11 MG/DL (7-18); CALCIUM LEVEL 10.1 MG/DL (8.5-10.1); CARBON DIOXIDE LEVEL 28 MEQ/L (21-32); CHLORIDE LEVEL 106 MEQ/L (98-107); CREATININE FOR GFR 0.62 MG/DL (0.70-1.30); GLOMERULAR FILTRATION RATE > 60.0 (>60); GLUCOSE, FASTING 86 MG/DL (70-100); POTASSIUM SERUM 4.7 MEQ/L (3.5-5.1); SODIUM LEVEL 138 MEQ/L (136-145); TOTAL PROTEIN 7.5 GM/DL (6.4-8.2); VALPROIC ACID (DEPAKOTE) 76.6 UG/ML (50.0-100.0)
== END ==
LOC: M LAB 11:26
PROVIDERS: ATTEND Physician Assistant Medical
DX: Z51.81 Encounter for therapeutic drug level monitoring (principal); Z79.899 Other long term (current) drug therapy; R56.9 Unspecified convulsions

== ENCOUNTER → 2021-02-09 | Outpatient (CLI) | payer MEDICAID ==
[2021-02-09 12:38] LABS: BASO # 0.1 10^3/uL (0.0-0.2); BASO % 0.5 % (0.0-1.0); EOS # 0.3 10^3/uL (0.0-0.5); EOS % 2.3 % (0.0-3.0); HEMATOCRIT 49.7 % (42.0-52.0); HEMOGLOBIN 15.9 g/dl (13.5-17.5); LYMPH # 5.8 10^3/uL (1.5-5.0); LYMPH % 43.2 % (24.0-44.0); MEAN CORPUSCULAR HEMOGLOBIN 29.4 pg (27.0-33.0); MEAN CORPUSCULAR VOLUME 91.9 fl (80.0-96.0); MONO # 0.7 10^3/uL (0.0-0.8); MONO % 5.3 % (2.0-8.0); NEUTROPHILS # 6.4 10^3/uL (1.5-8.5); NEUTROPHILS % 48.3 % (36.0-66.0); PLATELET COUNT, AUTOMATED 362 10^3/uL (150-450); RED BLOOD COUNT 5.41 10^6/uL (4.30-6.10)
[2021-02-09 12:40] LABS: WHITE BLOOD COUNT 13.3 10^3/uL (4.0-10.0)
[2021-02-09 13:13] LABS: ALBUMIN 3.9 GM/DL (3.2-5.2); ALT/SGPT 21 U/L (12-78); BILIRUBIN,TOTAL 0.2 MG/DL (0.2-1.0); BLOOD UREA NITROGEN 14 MG/DL (7-18); CALCIUM LEVEL 10.5 MG/DL (8.5-10.1); CARBON DIOXIDE LEVEL 29 MEQ/L (21-32); CHLORIDE LEVEL 103 MEQ/L (98-107); CREATININE FOR GFR 0.63 MG/DL (0.70-1.30); GLOMERULAR FILTRATION RATE > 60.0 (>60); GLUCOSE, FASTING 97 MG/DL (70-100); POTASSIUM SERUM 4.2 MEQ/L (3.5-5.1); SODIUM LEVEL 138 MEQ/L (136-145); TOTAL PROTEIN 7.9 GM/DL (6.4-8.2)
== END ==
LOC: M LAB 11:46
PROVIDERS: ATTEND Physician Assistant Medical
DX: R56.9 Unspecified convulsions (principal); Z79.899 Other long term (current) drug therapy

== ENCOUNTER → 2021-02-19 | Outpatient (REF) | payer MEDICAID ==
[~2021-02-19] MED LIST changes: -CVS125CA3 PO; +[UNRECOGNIZED DRUG - CODE] PO
[2021-02-19 13:30] LABS: BASO # 0.1 10^3/uL (0.0-0.2); BASO % 0.7 % (0.0-1.0); EOS # 0.4 10^3/uL (0.0-0.5); EOS % 3.1 % (0.0-3.0); HEMOGLOBIN 14.6 g/dl (13.5-17.5); LYMPH # 4.7 10^3/uL (1.5-5.0); LYMPH % 39.3 % (24.0-44.0); MEAN CORPUSCULAR HEMOGLOBIN 29.6 pg (27.0-33.0); MEAN CORPUSCULAR HGB CONC 31.7 g/dl (32.0-36.5); MEAN CORPUSCULAR VOLUME 93.1 fl (80.0-96.0); MONO % 8.5 % (2.0-8.0); NEUTROPHILS # 5.7 10^3/uL (1.5-8.5); NEUTROPHILS % 47.8 % (36.0-66.0); PLATELET COUNT, AUTOMATED 328 10^3/uL (150-450); RED BLOOD COUNT 4.94 10^6/uL (4.30-6.10); WHITE BLOOD COUNT 11.9 10^3/uL (4.0-10.0)
[2021-02-19 14:02] LABS: ALBUMIN 3.8 GM/DL (3.2-5.2); ALT/SGPT 18 U/L (12-78); BILIRUBIN,TOTAL 0.1 MG/DL (0.2-1.0); BLOOD UREA NITROGEN 11 MG/DL (7-18); CALCIUM LEVEL 9.8 MG/DL (8.5-10.1); CARBON DIOXIDE LEVEL 31 MEQ/L (21-32); CHLORIDE LEVEL 105 MEQ/L (98-107); CHOLESTEROL LEVEL 147 MG/DL (<200); CHOLESTEROL RISK RATIO 3.585 (<5); CREATININE FOR GFR 0.55 MG/DL (0.70-1.30); GLOMERULAR FILTRATION RATE > 60.0 (>60); GLUCOSE, FASTING 103 MG/DL (70-100); HDL CHOLESTEROL 41 MG/DL (>40); LDL CHOLESTEROL 71 MG/DL (<100); NON-HDL-C 106 MG/DL; POTASSIUM SERUM 4.3 MEQ/L (3.5-5.1); SODIUM LEVEL 140 MEQ/L (136-145); TOTAL PROTEIN 7.6 GM/DL (6.4-8.2); TRIGLYCERIDES LEVEL 174 MG/DL (<150)
== END ==
LOC: M SFHCPLAZ 11:24
PROVIDERS: ATTEND Physician Assistant
DX: D72.820 Lymphocytosis (symptomatic) (principal); G80.9 Cerebral palsy, unspecified; Z13.1 Encounter for screening for diabetes mellitus; Z13.220 Encounter for screening for lipoid disorders

== ENCOUNTER → 2021-08-27 | Outpatient (CLI) | payer MEDICAID ==
[~2021-08-27] MED LIST changes: -DOXY100C; +DOXY100C3; +OMEP40CA4 PO; -OMEP40CA97 PO
[2021-08-27 12:29] LABS: BASO # 0.1 10^3/uL (0.0-0.2); EOS % 7.5 % (0.0-3.0); HEMATOCRIT 49.5 % (42.0-52.0); HEMOGLOBIN 15.7 g/dl (13.5-17.5); LYMPH # 5.2 10^3/uL (1.5-5.0); LYMPH % 40.2 % (24.0-44.0); MEAN CORPUSCULAR HEMOGLOBIN 29.1 pg (27.0-33.0); MEAN CORPUSCULAR HGB CONC 31.7 g/dl (32.0-36.5); MEAN CORPUSCULAR VOLUME 91.8 fl (80.0-96.0); MONO # 0.8 10^3/uL (0.0-0.8); NEUTROPHILS # 5.8 10^3/uL (1.5-8.5); NEUTROPHILS % 44.9 % (36.0-66.0); PLATELET COUNT, AUTOMATED 311 10^3/uL (150-450); RED BLOOD COUNT 5.39 10^6/uL (4.30-6.10); WHITE BLOOD COUNT 12.9 10^3/uL (4.0-10.0)
[2021-08-27 12:59] LABS: ALBUMIN 3.6 GM/DL (3.2-5.2); ALT/SGPT 20 U/L (12-78); BILIRUBIN,TOTAL 0.2 MG/DL (0.2-1.0); BLOOD UREA NITROGEN 11 MG/DL (7-18); CALCIUM LEVEL 9.9 MG/DL (8.5-10.1); CARBON DIOXIDE LEVEL 28 MEQ/L (21-32); CHLORIDE LEVEL 108 MEQ/L (98-107); CREATININE FOR GFR 0.65 MG/DL (0.70-1.30); GLOMERULAR FILTRATION RATE > 60.0 (>60); GLUCOSE, FASTING 91 MG/DL (70-100); POTASSIUM SERUM 4.3 MEQ/L (3.5-5.1); SODIUM LEVEL 139 MEQ/L (136-145); TOTAL PROTEIN 7.7 GM/DL (6.4-8.2)
[2021-08-27 13:07] LABS: TOTAL 25(OH) VITAMIN D 39.9 NG/ML (30.0-100.0)
== END ==
LOC: M LAB 11:15
PROVIDERS: ATTEND Nurse Practitioner Family
DX: G40.909 Epilepsy, unspecified, not intractable, without status epilepticus (principal); E55.9 Vitamin D deficiency, unspecified

== ENCOUNTER → 2021-08-27 | Outpatient (CLI) | payer MEDICAID ==
[2021-08-27 12:47] LABS: BASO # 0.1 10^3/uL (0.0-0.2); BASO % 0.8 % (0.0-1.0); EOS # 0.9 10^3/uL (0.0-0.5); EOS % 7.4 % (0.0-3.0); HEMATOCRIT 49.4 % (42.0-52.0); HEMOGLOBIN 15.8 g/dl (13.5-17.5); LYMPH # 5.1 10^3/uL (1.5-5.0); LYMPH % 41.2 % (24.0-44.0); MEAN CORPUSCULAR HEMOGLOBIN 29.3 pg (27.0-33.0); MEAN CORPUSCULAR VOLUME 91.5 fl (80.0-96.0); MONO # 0.7 10^3/uL (0.0-0.8); MONO % 5.6 % (2.0-8.0); NEUTROPHILS # 5.5 10^3/uL (1.5-8.5); NEUTROPHILS % 44.5 % (36.0-66.0); PLATELET COUNT, AUTOMATED 354 10^3/uL (150-450); WHITE BLOOD COUNT 12.4 10^3/uL (4.0-10.0)
[2021-08-27 13:07] LABS: ALBUMIN 3.6 GM/DL (3.2-5.2); ALT/SGPT 20 U/L (12-78); BILIRUBIN,TOTAL 0.2 MG/DL (0.2-1.0); BLOOD UREA NITROGEN 12 MG/DL (7-18); CALCIUM LEVEL 9.4 MG/DL (8.5-10.1); CARBON DIOXIDE LEVEL 27 MEQ/L (21-32); CHLORIDE LEVEL 107 MEQ/L (98-107); CREATININE FOR GFR 0.72 MG/DL (0.70-1.30); GLOMERULAR FILTRATION RATE > 60.0 (>60); GLUCOSE, FASTING 92 MG/DL (70-100); POTASSIUM SERUM 4.3 MEQ/L (3.5-5.1); SODIUM LEVEL 139 MEQ/L (136-145); TOTAL PROTEIN 7.9 GM/DL (6.4-8.2)
== END ==
LOC: M LAB 11:18
PROVIDERS: ATTEND Physician Assistant Medical
DX: G40.89 Other seizures (principal)

== ENCOUNTER 2021-09-28 11:37 | Emergency (ER) | payer MEDICAID ==
--- OUTSIDE RECORDS SUMMARY | 2021-09-28 13:07 | CCD ---
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 Active confirmed 693686056 Problem Epilepsy, unspecified, not intractable, without status epilepticus G40.909 Active confirmed 94205746 Problem Cerebral palsy, unspecified G80.9 Active confirmed 152871536 Problem Nephrolithiasis N20.0 Active confirmed 9557 0007 Problem Vitamin D deficiency E55.9 Active confirmed 18004766 Problem UTI (urinary tract infection) N39.0 Active confirm ed 86289512 Problem Urinary retention R33.9 Active confirmed 26 9475368 Problem Gastroesophageal reflux disease, esophagitis pre sence not specified K21.9 Active confirmed 850576722 Problem Microcytic anemia D50.9 Active confirmed 23 8110721 Problem Microcytic hypochromic anemia D50.9 Active confirm ed 93529388 Problem Leukocytosis, unspecified type D72.829 Active confi rmed 862155425 Problem PTSD (post-traumatic stress disorder) F43.10 Ac tive confirmed 89503169 Problem Constipation, unspecified constipation type K59.00 Active confirmed 62151907 Problem Neurogenic bladder N31.9 Active confirmed 3 67398319 Problem Wheelchair bound Z99.3 Active confirmed 225 968840 Problem 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 Active confirmed 64792808 Problem 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 Active confirmed 679491150 Problem Fatty liver disease, nonalcoholic K76.0 Active confirmed 253595612 ALLERGIES Allergen (clinical drug ingredient) Drug/Non Drug Allergy do cumented on EMR Reaction Allergy Type Onset Date Status Flu shot causes seizures Non Drug Allergy Act masoud azithromycin Azithromycin([facility] Code:[address]-91) Hives Drug All ergy Active ENCOUNTERS from 1981 to 2021-07-29 Encounter Location Date Provider Diagnosis [place] [id number] [facility] [phone] [place] [address] 15 Jul, 2021 Kerri Enio IMMUNIZATIONS Vaccine Route Administration Date Status Influenza 6mo & up Fluzone Unknown Aug 24, 2017 Other s SOCIAL HISTORY Tobacco Use: Social History Observation Description Date Details (start date - stop date) Never Smoker Sex Assigned At : Social History Observation Description Sex Assigned At Unknown Education: Question Answer Notes Level of Education: High School Audit Question Answer Notes Total Score: 0 Interpretation: Alcohol Education Language: Question Answer Notes Languages spoken: Other non verbal Zoroastrian: Question Answer Notes Zoroastrian 21 Spiritism Sexual Hx: Question Answer Notes Had sex in the last 12 months (vaginal, oral, or anal)? No Have you ever had an STD? No Drug and Alcohol Question Answer Notes Total Score: 0 Interpretation: No problems reported Alcohol Screening: Question Answer Notes Did you have a drink containing alcohol in the past year? No Points 0 Interpretation Negative Tobacco Use: Question Answer Notes Are you a: never smoker REASON FOR REFERRAL No Information VITAL SIGNS No information MEDICATIONS Medication SIG (Take, Route, Frequency, Duration) Notes Start Da te End Date Status Adult Brief Large - as directed as needed for 30 day(s) Dec, Active Wheelchair battery repair and maintenance as directed (2 batteries) Dx: G80.9 for 99 days March, Active Albuterol Sulfate (2.5 MG/3ML) 0.083% 3 ml Inhalation Four times a day as needed for 30 day(s) Active May Have - Underpad, any size Medicaid number:[id number] length of need: 99months; Dx: N39.46 for 30 day(s) Jul, Active May Have - resusable Underpad, Bed size Medicaid ____#: [id number] Length of need: 99 months; Dx: N39.46 for 30 day(s) Jul, Active Nystatin 182150 UNIT/GM 1 application to affected ar ea Externally Twice a day for 14 day(s) Jul, Active May have pt may return to [facility] PT/OT as directed - - for - 15 Jan, 2016 Not-Taking May Have - Underpad any size for 30 day(s) Jan, Active MiraLax - as directed Orally Active Ensure - 235ml Orally once daily for 30 Days Jul, Active Boost - 1 can Orally bid at meals to maintain muscle mass. Please do not dispense chocolate. DX:G80.9 for 30 day(s) Oct, Not-Taking Multi-Vitamin/Iron 1 1 tab(s) Orally Once a day for 30 Days Not-Taking Nebulizer/Tubing/Mouthpiece Supplies DX: R05, G80.9 PRN USE for 30 Days Medicaid Number [id number] Oct, Active Divalproex Sodium 125 MG 2 capsules Orally Four times a day Active May Have - Pt may return to work/Occupa tional Therapy/Physical Therapy/Dayhab Program March, Not-Taking May Have - as directed may have extra l arya mattress for hospital bed Dx: G80.9 for 30 day(s) May, Active Wheelchair - as directed power wheelchair with power seat tilt Dx: G80.9, Z99.3 for 99 days March, Active OLANZapine 5 MG 1 tablet Orally Once a day Active Underpads - as directed Chair Size Daily for 30 day(s) Dec, Active May Have - Reusable bed size underpad for 30 day(s) Jan Active Carafate 1 GM/10ML take 10 milliliters by mouth four times daily Orally _ for 31 Active Fluconazole 200 MG as directed Orally Daily for 14 day(s) T troy 2 tabs on day one and then one tabe daily until gone March, Not-T aking Carafate 1 GM/10ML 10 ml Orally four times a day for 30 day(s) d uplicate March, Active May Have - as directed back to school as directed for 30 day(s) May, Not-Taking lamoTRIgine 100 mg 1 tablet Orally Twice a day Active levOCARNitine 330 MG 1 tablets Orally Three times a day Active Cefdinir 300 MG as directed Orally bid Not-Taking May Have - Fernando De Paz Maxi move pow er patient lift with padded clip sling(4 point) Dx: G80.9 May, Active May Have - Adult Diaper/Brief, Large Me dicaid____#: [id number] Length of Need: 99 months; Dx: N39.46 for 30 day(s) Jul, Active May Have - Patient Lift for lifting & m oving as needed Wgt 173# Dx G80.9 for 999 days Sep, Active Wheelchair DX G80 replace armrest pads control pad cover for track 3 power wc plus labor for 1 month Dec, Active May Have - reusable chair size underpad for 30 day(s) 2017 Active May Have - Resusable Underpad, Chair Si ze Medicaid ____#: [id number] Length of need: 99 months; Dx: N39.46 for 30 day(s) Jul, Active Ursodiol 250 MG 1 tablet with food Orally three times da tobias for 30 day(s) Continue for up to 24 months for non-surgical biliary colic Aug, Active Tylenol 325 1 tab orally as needed for pain. Active Doxycycline Monohydrate 100 MG 1 capsule Orally bid Not-Taking May Have - Medicaid #: [id number] Replace joystick on PWC plus labor DX: G80.9 for 99 days Jan, Active May have Ground Solids per recommendation p.o. meal time (Per [facility] service coordinater/ speech therapist.) Active clonazePAM 0.5 MG 1 tablet Orally Twice a day Active Omeprazole 40 MG 1 capsule 30 minutes before morning meal Orally Once a day for 30 Active Vitamin D (Ergocalciferol) 50 MCG (1999 UT) 1 capsule Orally Once a day for 30 day(s) Active Bedrail as directed full length adjustable bed rail Dx: G80.9 for 99 days Apr, Active Underpads - as directed Bed Size Daily for 30 day(s) 2017 Active May Have - large adult diaper brief for 30 day(s) Jan, Active Underpads - as directed Any Size Daily for 30 day(s) 2017 Active Nebulizer - as directed Dx: R05, G80.9 PRN USE for 1 825 days Medicaid Number [id number] Oct, Active May Have - as directed Please dispense folding wheelchair with removeable footrests Daily as needed for breakdown of power chair. DX: Z99.3 for 99 months Nov, Active traZODone HCl 50 MG 1/2 tablet at bedtime as needed Orally Once a day Active Naproxen 125 MG/5ML 15 ml Orally Twice a day for 7 day(s) Sep, Active May Have - left custom molded whfo _ Daily for 99 days Sep, Active Omeprazole 40 MG TAKE ONE CAPSULE BY MOUTH ONCE DAILY for 30 Active May Have - as directed May wear and hav e liners changed at school Daily for 30 day(s) May, Active May Have - as directed may resume regul ar ground diet with the exception of chocolate and soda Daily for 30 day(s) May, Active Hospital bed Dispense hospital bed with h eight adjustment When sleeping or napping for severe immobility due to cerebral palsy Daily. DX: Z74.09 for 99 months Oct, Active Baclofen 10 MG 1 tablet with food or milk Orally Three times a day as needed Active Spirometer - as directed Incentive spirom etry DX: G80.9 May use daily as directed for 30 day(s) Feb, Active Chris Ibuprofen 100 MG/5ML 20 ml with food or milk as needed Orally Three times a day for 7 day(s) March _delete order for naproxen suspensio n. Pt may take ibuprofen 400 mg TID x 7 days. Pt is small adult but tolerates liquid form better due to CP. Sep, Active PROCEDURES No Information RESULTS No Results REASON FOR VISIT script for Ensure MEDICAL (GENERAL) HISTORY Type Description Date Medical History Seizures Medical History cerebral palsy Medical History GERD Medical History kidney stones Medical History leukocytosis- workup w/ heme/onc was neg - d/andrew from them 08/01 Medical History colonoscopy 08/01- unsatifactory prep, no rmal Medical History EGD 08/01- small hiatal hernia Medical History Gall stones- found on liver u/s 07/01, HI DA scan 08/31- normal Surgical History Both heels surgery age 4 Surgical History laser lithotripsy 04/2017 Surgical History Dental 2017 Surgical History dental fillings and cleaning [facility] OR 11/13 Surgical History Colonoscopy and EGD 08/01 Surgical History Gall Bladder 12/2019 Hospitalization History Sepsis/Gall Bladder 12/2019 Goals Section No Information Health Concerns No Information MEDICAL EQUIPMENT No Information MENTAL STATUS No Information FUNCTIONAL STATUS No Information ASSESSMENTS No Information PLAN OF TREATMENT Medication Medication Name Sig Start Date Stop Date Carafate 1 GM/10ML 10 ml Orally four times a day for 30 day(s) 0 March, Carafate 1 GM/10ML take 10 milliliters by mouth four times daily Orally _ for 31 Wheelchair - as directed power wheelchair with power seat tilt Dx: G80.9, Z99.3 for 99 days March, Bedrail as directed full length adjustable bed r ail Dx: G80.9 for 99 days Apr, Ensure - 235ml Orally once daily for 30 Days Jul, Wheelchair battery repair and maintenance as directed (2 batteries) Dx: G80.9 for 99 days March, Omeprazole 40 MG 1 capsule 30 minutes before morning meal Orally Once a day for 30 Next Appt Details Provider Name:Archana Hassanmaddiemalgorzata, 2020-11 0-15 10:15:00 AM, [address] [facility], , [place], [address], Insurance Providers Payer Name Payer Address Payer Phone Insured Name Patient Relati onship to Insured Coverage Start Date Coverage End Date MEDICAID [employer] [address] [facility] [id number] [employer] self
--- OUTSIDE RECORDS SUMMARY | 2021-09-28 13:07 | CCD | Continuity of Care Document ---
Author Author [facility] Organization Unknown Address [address] [place] [address] Phone [phone] Care Team Providers Care Trip Motor Operator Name Role Phone Nestor Novak AUTM Kerri Steen PA-C AUTM [phone] Problems Description No Information Available Social History Type Date Description Comments Sex Unknown Allergies, Adverse Reactions, Alerts Active Allergies Criticality Reaction | Severity Comments Date Flu Virus Vaccine Unable to assess criticality 08/27/2010 Medications Active Medications SIG Qnty Indications Ordering Provide r Date Lamotrigine 100mg Tablets Take One Tablet By Mouth Twice Daily 60tabs Felisa Sabillon M.D. 9 Baclofen 10mg Tablets 1/2 tab by mouth three times a day as needed 45tabs G80.0 Felisa Sabillon M.D. Depakote Sprinkles 125mg CSDR Take Two Capsules By Mouth Four Times Daily 240units Felisa Sabillon M.D. 01/19/2011 Levocarnitine 330mg Tablets Take One Tablet By Mouth Three Times Daily 90tabs Malia Hernandez 09/20/2010 Klonopin 0.5mg Tablets 1 tab by mouth twice a day, mdd 2 07/21/21 [facility] [id number] 60tabs Emir Cook M.D. 08/17/2010 Immunizations Description No Information Available Vital Signs Date Vital Result Comment 08/03/2020 7:05am BP Systolic 120 mmHg BP Diastolic 80 mmHg Heart Rate 76 /min Respiratory Rate 16 /min Weight 130.00 lb 04/20/2020 6:49am Weight 131.00 lb stated Results Test Acquired Date Facility Test Result H/L Range Note CBC With Differential 02/09/2021 [facility] White Blood Count 13.3 10 High 4.0-10.0 1 Red Blood Count 5.41 10 Normal 4.30-6.10 Hemoglobin 15.9 g/dL Normal 13.5-17.5 Hematocrit 49.7 % Normal 42.0-52.0 Mean Corpuscular Volume 91.9 fl Normal 80.0-96.0 Mean Corpuscular Hemoglobin 29.4 pg Normal 27.0-33.0 Mean Corpuscular HGB Conc 32.0 g/dL Normal 32.0-36.5 Red Cell Distribution Width 13.0 % Normal 11.5-14.5 Platelet Count, Automated 362 10 Normal 150-450 Neutrophils % 48.3 % Normal 36.0-66.0 Lymph % 43.2 % Normal 24.0-44.0 Baldwin % 5.3 % Normal 2.0-8.0 Eos % 2.3 % Normal 0.0-3.0 Baso % 0.5 % Normal 0.0-1.0 Immature Granulocyte % 0.4 % Normal 0-3.0 Nucleated Red Blood Cell % 0.0 % Normal 0-0 Neutrophils # 6.4 10 Normal 1.5-8.5 Lymph # 5.8 10 High 1.5-5.0 Baldwin # 0.7 10 Normal 0.0-0.8 Eos # 0.3 10 Normal 0.0-0.5 Baso # 0.1 10 Normal 0.0-0.2 Comprehensive Metabolic Profil 02/09/2021 [facility] Glucose, Fasting 97 mg/dL Normal 70-100 Blood Urea Nitrogen 14 mg/dL Normal 7-18 Creatinine For GFR 0.63 mg/dL Low 0.70-1.30 Glomerular Filtration Rate > 60.0 Normal >60 2 Sodium Level 138 mEq/L Normal 136-145 Potassium Serum 4.2 mEq/L Normal 3.5-5.1 Chloride Level 103 mEq/L Normal 98-107 Carbon Dioxide Level 29 mEq/L Normal 21-32 Anion Gap 6 mEq/L Low 8-16 Calcium Level 10.5 mg/dL High 8.5-10.1 Ast/Sgot 11 U/L Normal 7-37 Alt/SGPT 21 U/L Normal 12-78 Alkaline Phosphatase 111 U/L Normal 45-117 Bilirubin,Total 0.2 mg/dL Normal 0.2-1.0 Total Protein 7.9 GM/DL Normal 6.4-8.2 Albumin 3.9 GM/DL Normal 3.2-5.2 Albumin/Globulin Ratio 1.0 Normal Laboratory test finding 02/09/2021 [facility] Valproic Acid (Depakote) 75.0 UG/ML Normal 50.0-100.0 Lamotrigine (Lamictal) 13.0 ug/mL Normal 2.0-20.0 3 1 A Pathologist review of this differential can help in the evaluation of a differential diagnosis. Please order a Pathologist Review (PERISM) if deemed necessary. Results are subject to change if a Pathologist Review is performed. 2 Units are mL/min/1.73 m2 Chronic Kidney Disease Staging per NKF: Stage I & II GFR >=60 Normal to Mildly Decreased Stage III GFR 30-59 Moderately Decreased Stage IV GFR 15-29 Severely Decreased Stage V GFR <15 Very Little GFR Left ESRD GFR <15 on UTILITY PORTER 3 Testing on this sample was p erformed by homogeneous enzyme immunoassay. 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 Plan of Treatment No Information Available Functional Status Description No Information Available Mental Status Description No Information Available Referrals Description No Information Available"
--- OUTSIDE RECORDS SUMMARY | 2021-09-28 13:07 | CCD ---
Author Author [facility] Organization [facility] Address Unknown Phone Unavailable Care Team Providers Care Care Giver Name Role Phone Archana Kapoor Unavailable PROBLEMS Type Condition ICD9-CM Code NVV24-PA Code Onset Dates Condition S tatus W/U Status Risk SNOMED Code Notes Problem Constipation, unspecified constipation type K59.00 Active confirmed 38742183 Problem Neurogenic bladder N31.9 Active confirmed 3 03240503 Problem Gastro-esophageal reflux disease without esophagitis K21.9 Active confirmed 043483036 Problem Cerebral palsy, unspecified G80.9 Active confirmed 339152078 Problem Epilepsy, unspecified, not intractable, without status epilepticus G40.909 Active confirmed 00392630 Problem Vitamin D deficiency E55.9 Active confirmed 40420559 ALLERGIES Allergen (clinical drug ingredient) Drug/Non Drug Allergy do cumented on EMR Reaction Allergy Type Onset Date Status azithromycin Azithromycin([facility] Code:[address]-28) Hives Drug All ergy Active Influenza Vaccines Influenza Vaccines causes seizures Drug Allergy Active ENCOUNTERS from 1981 to 2021-08-31 Encounter Location Date Provider Diagnosis [address] [phone] [place] [address] Aug, Archana Kapoor Cerebral palsy, unspecified G80.9 ; Epilepsy, unspecified, not intractable, without status epilepticus G40.909 ; Gastro-esophageal reflux disease without esophagitis K21.9 ; Neurogenic bladder N31.9 ; Constipation, unspecified constipation type K59.00 ; 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 ; Vitamin D deficiency E55.9 and Influenza vaccination declined Z28.21 IMMUNIZATIONS Vaccine Route Administration Date Status Influenza [...] Answer Notes Languages spoken: Other non verbal Mormon: Question Answer Notes Mormon 21 Pentecostal Sexual Hx: Question Answer Notes Had sex [...] REASON FOR REFERRAL No Information VITAL SIGNS Weight 151 lbs Aug, Weight-kg 68.49 kg Aug, Height 59 in Aug, BMI 30.49 kg/m2 Aug, Heart Rate 111 /min Aug, Respiratory Rate 20 /min Aug, Temperature 98.6 degrees Fahrenheit Aug, Oximetry 95% Aug, Blood pressure systolic 126 mm Hg Aug, Blood pressure diastolic 72 mm Hg Aug, MEDICATIONS Medication SIG (Take, Route, Frequency, Duration) Notes Start Da te End Date Status Underpads - as directed Chair Size Daily for 30 day(s) Dec, Active Underpads - as directed Any Size Daily for 30 day(s) 2017 Active Baclofen 10 MG 1 tablet with food or milk Orally Three times a day as needed Active May Have - Arjohunt Zandra Maxi move pow er patient lift with padded clip sling(4 point) Dx: G80.9 May, Active Wheelchair DX G80 replace armrest pads control pad cover for track 3 power wc plus labor for 1 month Dec, Active Ensure - 235ml Orally once daily for 30 Days Jul, Active Nebulizer - as directed Dx: R05, G80.9 PRN USE for 1 825 days Medicaid Number [id number] Oct, Active May Have - reusable chair size underpad for 30 day(s) 22 M ar, 2018 Active Tylenol 325 1 tab orally as needed for pain. Active May Have - Adult Diaper/Brief, Large Me dicaid____#: [id number] Length of Need: 99 months; Dx: N39.46 for 30 day(s) Jul, Active Nystatin 517327 UNIT/GM 1 application to affected ar ea Externally Twice a day for 14 day(s) Jul, Active Cefdinir 300 MG as directed Orally bid Not-Taking Adult Brief Large - as directed as needed for 30 day(s) Dec, Active May Have - Resusable Underpad, Chair Si ze Medicaid ____#: [id number] Length of need: 99 months; Dx: N39.46 for 30 day(s) Jul, Active Vitamin D (Ergocalciferol) 50 MCG (2000 UT) 1 capsule Orally Once a day for 30 day(s) Active Multi-Vitamin/Iron 1 1 tab(s) Orally Once a day for 30 Days Not-Taking clonazePAM 0.5 MG 1 tablet Orally Twice a day Active Fluconazole 200 MG as directed Orally Daily for 14 day(s) T troy 2 tabs on day one and then one tabe daily until gone March, Not-T aking Wheelchair - as directed power wheelchair with power seat tilt Dx: G80.9, Z99.3 for 99 days March, Active May Have - large adult diaper brief for 30 day(s) Jan, Active May have Ground Solids per recommendation p.o. meal time (Per [facility] service coordinater/ speech therapist.) Active Carafate 1 GM/10ML take 10 milliliters by mouth four times daily Orally _ for 31 Active levOCARNitine 330 MG 1 tablets Orally Three times a day Active May have pt may return to [facility] PT/OT as directed - - for - Jan, Not-Taking Omeprazole 40 MG TAKE ONE CAPSULE BY MOUTH ONCE DAILY for 30 Active May Have - Pt may return to work/Occupa tional Therapy/Physical Therapy/Dayhab Program March, Not-Taking Boost - 1 can Orally bid at meals to maintain muscle mass. Please do not dispense chocolate. DX:G80.9 for 30 day(s) Oct, Not-Taking May Have - as directed Please dispense folding wheelchair with removeable footrests Daily as needed for breakdown of power chair. DX: Z99.3 for 99 months Nov, Active Divalproex Sodium 125 MG 2 capsules Orally Four times a day Active Albuterol Sulfate (2.5 MG/3ML) 0.083% 3 ml Inhalation Four times a day as needed for 30 day(s) Active Nebulizer/Tubing/Mouthpiece Supplies DX: R05, G80.9 PRN USE for 30 Days Medicaid Number [id number] Oct, Active May Have - Underpad, any size Medicaid number:[id number] length of need: 99months; Dx: N39.46 for 30 day(s) Jul, Active lamoTRIgine 100 mg 1 tablet Orally Twice a day Active Wheelchair battery repair and maintenance as directed (2 batteries) Dx: G80.9 for 99 days March, Active May Have - Patient Lift for lifting & m oving as needed Wgt 173# Dx G80.9 for 999 days Sep, Active May Have - as directed back to school as directed for 30 day(s) May, Not-Taking Carafate 1 GM/10ML 10 ml Orally four times a day duplicate 14 March, 016 Active May Have - resusable Underpad, Bed size Medicaid ____#: [id number] Length of need: 99 months; Dx: N39.46 for 30 day(s) Jul, Active Ursodiol 250 MG 1 tablet with food Orally three times da tobias for 30 day(s) Continue for up to 24 months for non-surgical biliary colic Aug, Active Doxycycline Monohydrate 100 MG 1 capsule Orally bid Not-Taking MiraLax - as directed Orally Active OLANZapine 5 MG 1 tablet Orally Once a day Active Bedrail as directed full length adjustable bed rail Dx: G80.9 for 99 days Apr, Active May Have - Underpad any size for 30 day(s) Jan, Active May Have - Reusable bed size underpad for 30 day(s) Jan Active Omeprazole 40 MG 1 capsule 30 minutes before morning meal Orally On a day Active Underpads - as directed Bed Size Daily for 30 day(s) 2017 Active traZODone HCl 50 MG 1/2 tablet at bedtime as needed Orally Once a day Active Naproxen 125 MG/5ML 15 ml Orally Twice a day for 7 day(s) Sep, Active May Have - left custom molded whfo _ Daily for 99 days Sep, Active May Have - Medicaid #: [id number] Replace joystick on PWC plus labor DX: G80.9 for 99 days Jan, Active May Have - as directed may resume regul ar ground diet with the exception of chocolate and soda Daily for 30 day(s) May, Active May Have - as directed may have extra l arya mattress for hospital bed Dx: G80.9 for 30 day(s) May, Active Hospital bed Dispense hospital bed with h eight adjustment When sleeping or napping for severe immobility due to cerebral palsy Daily. DX: Z74.09 for 99 months Oct, Active Spirometer - as directed Incentive spirom etry DX: G80.9 May use daily as directed for 30 day(s) Feb, Active May Have - as directed May wear and hav e liners changed at school Daily for 30 day(s) May, Active Chris Ibuprofen 100 MG/5ML 20 ml with food or milk as needed Orally Three times a day for 7 day(s) May _delete order for naproxen suspensio n. Pt may take ibuprofen 400 mg TID x 7 days. Pt is small adult but tolerates liquid form better due to CP. Sep, Active PROCEDURES No Information RESULTS Component Value Reference Range CBC with Differential Reviewed date:08/30/2021 09:37:24 Interpretation: Performing Lab:[facility], [facility] [id number] , ,[place] [address] WHITE BLOOD COUNT 12.9 4.0-10.0 RED BLOOD COUNT 5.39 4.30-6.10 HEMOGLOBIN 15.7 13.5-17.5 HEMATOCRIT 49.5 42.0-52.0 MEAN CORPUSCULAR VOLUME 91.8 80.0-96.0 MEAN CORPUSCULAR HEMOGLOBIN 29.1 27.0-33.0 MEAN CORPUSCULAR HGB CONC 31.7 32.0-36.5 RED CELL DISTRIBUTION WIDTH 13.2 11.5-14.5 PLATELET COUNT, AUTOMATED 311 150-450 NEUTROPHILS % 44.9 36.0-66.0 LYMPH % 40.2 24.0-44.0 MONO % 6.0 2.0-8.0 EOS % 7.5 0.0-3.0 BASO % 1.0 0.0-1.0 NEUTROPHILS # 5.8 1.5-8.5 LYMPH # 5.2 1.5-5.0 MONO # 0.8 0.0-0.8 EOS # 1.0 0.0-0.5 BASO # 0.1 0.0-0.2 Comprehensive Metabolic Profile (CMP) Reviewed date:08/30/2021 09:37:36 Interpretation: Performing Lab:[facility] [address] [address] , ,[place] [address] GLUCOSE, FASTING 91 70-100 BLOOD UREA NITROGEN 11 7-18 CREATININE FOR GFR 0.65 0.70-1.30 GLOMERULAR FILTRATION RATE > 60.0 >60 SODIUM LEVEL 139 136-145 POTASSIUM SERUM 4.3 3.5-5.1 CHLORIDE LEVEL 108 98-107 CARBON DIOXIDE LEVEL 28 21-32 CALCIUM LEVEL 9.9 8.5-10.1 AST/SGOT 13 7-37 ALT/SGPT 20 12-78 ALKALINE PHOSPHATASE 102 45-117 BILIRUBIN,TOTAL 0.2 0.2-1.0 TOTAL PROTEIN 7.7 6.4-8.2 ALBUMIN 3.6 3.2-5.2 ALBUMIN/GLOBULIN RATIO 0.9 VITAMIN D 25-HYDROXY Reviewed date:08/30/2021 09:37:41 Interpretation: Performing Lab:[facility] [address] [address] , ,[place] [address] TOTAL 25(OH) VITAMIN D 39.9 30.0-100.0 REASON FOR VISIT [place] MEDICAL (GENERAL) HISTORY Type Description Date Medical [...] No Information FUNCTIONAL STATUS No Information ASSESSMENTS Encounter Date Diagnosis Assessment Notes Treatment Notes Treatm ent Clinical Notes Aug, Cerebral palsy, unspecified (ICD-10 - G80.9) cotnractures of bilateral upper/lower global involvement wheel chair bound continent of bowel/bladder lives with Family caregivers/family assist Aug, Epilepsy, unspecified, not i ntractable, without status epilepticus (ICD-10 - G40.909) follows with neurology for management, no recent records from neurology available at this time Aug, Gastro-esophageal reflux dis ease without esophagitis (ICD-10 - K21.9) symptoms controlled currently Aug, Neurogenic bladder (ICD-10 - N31.9) patient follows with neurology Aug, Constipation, unspecified constipation type (ICD -10 - K59.00) controlled currently Aug, Atypical lymphocytosis (ICD-10 - D72.820) cleared by heme/onc, will continue to monitor CBC Aug, Vitamin D deficiency (ICD-10 - E55.9) patient takes a mutlivitamin daily Aug, Influenza vaccination declined (ICD-10 - Z28.21) family declined bec of last vaccination made him sick PLAN OF TREATMENT Medication Medication Name Sig Start Date Stop Date OLANZapine 5 MG 1 tablet Orally Once a day Carafate 1 GM/10ML take 10 milliliters by mouth four times daily Orally _ for 31 Wheelchair - as directed power wheelchair with power seat tilt Dx: G80.9, Z99.3 for 99 days March, Bedrail as directed full length adjustable bed r ail Dx: G80.9 for 99 days Apr, Wheelchair battery repair and maintenance as directed (2 batteries) Dx: G80.9 for 99 days March, Baclofen 10 MG 1 tablet with food or milk Orally Three times a day as needed lamoTRIgine 100 mg 1 tablet Orally Twice a day Divalproex Sodium 125 MG 2 capsules Orally Four times a day Omeprazole 40 MG 1 capsule 30 minutes before morning meal Orally Once a day Carafate 1 GM/10ML 10 ml Orally four times a day March, Treatment Notes Assessment Notes Clinical Notes Cerebral palsy, unspecified cotnractures of bilateral upper/lower global involvementwheel chair boundcontinent of bowel/bladderlives with Familycaregivers/family assist Epilepsy, unspecified, not intractable, without status epile pticus follows with neurology for management,no recent records from neurology available at this time Gastro-esophageal reflux disease without esophagitis symptoms controlled currently Neurogenic bladder patient follows with neurology Constipation, unspecified constipation type controlled currently Atypical lymphocytosis cleared by heme/o nc,will continue to monitor CBC Vitamin D deficiency patient takes a mut livitamin daily Influenza vaccination declined family de clined bec of last vaccination made him sick Future Test Test Name Order Date CBC with Differential [id number] Comprehensive Metabolic Profile (CMP) [id number] VITAMIN D 25-HYDROXY [id number] Next Appt Details 6 Months Reason: Provider Name:Archana Parikhaditya, 2021-02-25 11:00:00 AM, [address] [facility], , [place], [address], Insurance Providers Payer Name Payer Address Payer Phone Insured Name Patient Relati onship to Insured Coverage Start Date Coverage End Date MEDICAID [employer] [address] [facility] [id number] [employer] self
--- OUTSIDE RECORDS SUMMARY | 2021-09-28 13:07 | CCD | Continuity of Care Document ---
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 08/17/2010 Immunizations Description No Information Available Vital Signs Date Vital Result Comment 08/09/2021 7:22am BP Systolic 120 mmHg BP Diastolic 70 mmHg Heart Rate 72 /min Respiratory Rate 16 /min 08/03/2020 7:05am BP Systolic 120 mmHg BP Diastolic 80 mmHg Heart Rate 76 /min Respiratory Rate 16 /min Weight 130.00 lb Results Test Acquired Date Facility Test Result H/L Range Note CBC With Differential 02/09/2021 [facility] White Blood Count 13.3 10 High 4.0-10.0 [...] 36.0-66.0 Lymph % 43.2 % Normal 24.0-44.0 [place] % 5.3 % Normal 2.0-8.0 Eos % 2.3 % Normal 0.0-3.0 Baso % 0.5 % Normal 0.0-1.0 Immature Granulocyte % 0.4 % Normal 0-3.0 Nucleated Red Blood Cell % 0.0 % Normal 0-0 Neutrophils # 6.4 10 Normal 1.5-8.5 Lymph # 5.8 10 High 1.5-5.0 [place] # 0.7 10 Normal 0.0-0.8 Eos # 0.3 10 Normal 0.0-0.5 Baso # 0.1 10 Normal 0.0-0.2 Comprehensive Metabolic Profil 02/09/2021 [facility] Glucose, Fasting 97 mg/dL Normal 70-100 Blood [...] Ratio 1.0 Normal Laboratory test finding 02/09/2021 [facility] Valproic Acid (Depakote) 75.0 UG/ML Normal 50.0-100.0 [...] Little GFR Left ESRD GFR <15 on MOLD BURNER 3 Testing on this sample was p erformed by homogeneous enzyme immunoassay. 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 08/06/2021 G25.3 Myoclonus Giuliana Quinteros P.A.-C. 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 Plan of Treatment Future Appointment(s):* 01/27/2022 12:00 pm - Giuliana Quinteros P.A.-C. at Main office - [place] 08/09/2021 - Giuliana Quinteros P.A.-C.* G25.3 Myoclonus* Comments:* Continue Klonopin. Refill not due. 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 Depakote and Lamictal levels, CBC and metabolic panel pending. 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 * Follow up:* 6 months. Functional Status Description No Information Available Mental Status Description No Information Available Referrals Description No Information Available"
--- OUTSIDE RECORDS SUMMARY | 2021-09-28 13:07 | CCD ---
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 Active confirmed 032020882 Problem Epilepsy, unspecified, not intractable, without status epilepticus G40.909 Active confirmed 23824538 Problem Cerebral palsy, unspecified G80.9 Active confirmed 566772878 Problem Nephrolithiasis N20.0 Active confirmed 9557 0007 Problem Vitamin D deficiency E55.9 Active confirmed 57380883 Problem UTI (urinary tract infection) N39.0 Active confirm ed 48904004 Problem Urinary retention R33.9 Active confirmed 26 2198827 Problem Gastroesophageal reflux disease, esophagitis pre sence not specified K21.9 Active confirmed 505633313 Problem Microcytic anemia D50.9 Active confirmed 23 8818288 Problem Microcytic hypochromic anemia D50.9 Active confirm ed 05017245 Problem Leukocytosis, unspecified type D72.829 Active confi rmed 183079856 Problem PTSD (post-traumatic stress disorder) F43.10 Ac tive confirmed 58920606 Problem Constipation, unspecified constipation type K59.00 Active confirmed 29567225 Problem Neurogenic bladder N31.9 Active confirmed 3 02339712 Problem Wheelchair bound Z99.3 Active confirmed 225 374615 Problem 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 Active confirmed 79586547 Problem 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 Active confirmed 011455377 Problem Fatty liver disease, nonalcoholic K76.0 Active confirmed 481083392 ALLERGIES Allergen (clinical drug ingredient) Drug/Non Drug Allergy do cumented on EMR Reaction Allergy Type Onset Date Status Flu shot causes seizures Non Drug Allergy Act masoud azithromycin Azithromycin([facility] Code:[address]-66) Hives Drug All ergy Active ENCOUNTERS from 1981 to 2021-07-02 Encounter Location Date Provider Diagnosis [place] [id number] [facility] [phone] [place] [address] Jun, Kerri Enio IMMUNIZATIONS Vaccine Route Administration Date [...] Answer Notes Languages spoken: Other non verbal Rastafari: Question Answer Notes Rastafari 21 Nondenominational Sexual Hx: Question Answer Notes Had sex [...] May Have - Underpad, any size Medicaid number:[id number] length of need: 99months; Dx: N39.46 for 30 day(s) Jul, Active May Have - resusable Underpad, Bed size Medicaid ____#: [id number] Length of need: 99 months; Dx: N39.46 for 30 day(s) Jul, Active Nystatin 896625 UNIT/GM 1 application to affected ar ea Externally Twice a day for 14 day(s) Jul, Active Tylenol 325 1 tab orally as needed for pain. Active May Have - Underpad any size for 30 day(s) Jan, Active MiraLax - as directed Orally Active May have Ground Solids per recommendation p.o. meal time (Per [facility] service coordinater/ speech therapist.) Active clonazePAM 0.5 MG 1 tablet Orally Twice a day Active Omeprazole 40 MG 1 capsule 30 minutes before morning meal Orally Once a day for 30 Active Nebulizer/Tubing/Mouthpiece Supplies DX: R05, G80.9 PRN USE for 30 Days Medicaid Number [id number] Oct, Active Vitamin D (Ergocalciferol) 50 MCG (1999 UT) 1 capsule Orally Once a day for 30 day(s) Active lamoTRIgine 100 mg 1 tablet Orally Twice a day Active May Have - as directed may resume regul ar ground diet with the exception of chocolate and soda Daily for 30 day(s) May, Active Wheelchair - [...] for 30 day(s) d uplicate March, Active Cefdinir 300 MG as directed Orally bid Not-Taking May Have - as directed back to school as directed for 30 day(s) May, Not-Taking Doxycycline Monohydrate 100 MG 1 capsule Orally bid Not-Taking levOCARNitine 330 MG 1 tablets Orally Three times a day Active May Have - Arjohunt Zandra Maxi move pow er patient lift with padded clip sling(4 point) Dx: G80.9 May, Active May Have - Adult Diaper/Brief, Large Me dicaid____#: [id number] Length of Need: 99 months; Dx: N39.46 for 30 day(s) Jul, Active May Have - Patient Lift for lifting & m oving as needed Wgt 173# Dx G80.9 for 999 days Sep, Active May have pt may return to [facility] PT/OT as directed - - for - Jan, Not-Taking May Have - reusable chair size underpad for 30 day(s) 22 M , 2017 Active May Have - Resusable Underpad, Chair Si ze Medicaid ____#: [id number] Length of need: 99 months; Dx: N39.46 for 30 day(s) Jul, Active Ursodiol 250 MG 1 tablet with food Orally three times da tobias for 30 day(s) Continue for up to 24 months for non-surgical biliary colic Aug, Active Boost - 1 can Orally bid at meals to maintain muscle mass. Please do not dispense chocolate. DX:G80.9 for 30 day(s) Oct, Not-Taking Multi-Vitamin/Iron 1 1 tab(s) Orally Once a day for 30 Days Not-Taking May Have - Medicaid #: [id number] Replace joystick on PWC plus labor DX: G80.9 for 99 days Jan, Active Divalproex Sodium 125 MG 2 capsules Orally Four times a day Active May Have - Pt may return to work/Occupa tional Therapy/Physical Therapy/Dayhab Program March, Not-Taking May Have - as directed may have extra l arya mattress for hospital bed Dx: G80.9 for 30 day(s) May, Active Omeprazole 40 MG TAKE ONE CAPSULE BY MOUTH ONCE DAILY for 30 Active Bedrail as directed full length adjustable [...] USE for 1 825 days Medicaid Number [id number] Oct, Active May Have - as directed [...] _ Daily for 99 days Sep, Active Wheelchair DX G80 replace armrest pads control pad cover for track 3 power wc plus labor for 1 month Dec, Active Spirometer - as directed Incentive spirom etry DX: G80.9 May use daily as directed for 30 day(s) Feb, Active May Have - as directed May wear and hav e liners changed at school Daily for 30 day(s) May, Active Hospital bed Dispense hospital bed with h eight adjustment When sleeping or napping for severe immobility due to cerebral palsy Daily. DX: Z74.09 for 99 months Oct, Active Baclofen 10 MG 1 tablet with food or milk Orally Three times a day as needed Active Chris Ibuprofen 100 MG/5ML 20 ml with food or milk as needed Orally Three times a day for 7 day(s) March _delete order for naproxen suspensio n. Pt may take ibuprofen 400 mg TID x 7 days. Pt is small adult but tolerates liquid form better due to CP. Sep, Active PROCEDURES No Information RESULTS No Results REASON FOR VISIT refill MEDICAL (GENERAL) HISTORY Type Description Date Medical [...] History laser lithotripsy 04/2017 Surgical History Dental 2016 Surgical History dental fillings and cleaning [facility] [...] times a day for 30 day(s) 0 2 Mar, 2016 Carafate 1 GM/10ML take 10 milliliters by mouth four times daily Orally _ for 31 Wheelchair - as directed power wheelchair with power seat tilt Dx: G80.9, Z99.3 for 99 days March, Bedrail as directed full length adjustable bed r ail Dx: G80.9 for 99 days Apr, Omeprazole 40 MG 1 capsule 30 minutes before morning meal Orally Once a day for 30 Wheelchair battery repair and maintenance as directed (2 batteries) Dx: G80.9 for 99 days March, Next Appt Details Provider Name:Archana Kapoor, 2020- 0-15 10:15:00 AM, [address] [facility], , [place], [address], Insurance Providers Payer Name Payer Address Payer Phone Insured Name Patient Relati onship to Insured Coverage Start Date Coverage End Date MEDICAID [employer] [address] [facility] [id number] [employer] self
--- OUTSIDE RECORDS SUMMARY | 2021-09-28 13:07 | CCD | Continuity of Care Document ---
Author Author Darrius QUINTEROS Organization Unknown Address [address] [place] [id number] Phone [phone] Care Team Providers Care English Drawer Name Role Phone Nestor Novak AUTM [phone] Kerri Steen PA-C AUTM [phone] Problems Description No Information Available Social History Type Date Description Comments Sex Unknown Allergies and adverse reactions Active Allergies Criticality Reaction | Severity Comments [...] by mouth twice a day, mdd 2 60tabs Felisa Sabillon M.D. 08/17/2010 Immunizations Description No Information Available [...] Result H/L Range Note CBC With Differential 08/27/2021 [facility] White Blood Count 12.4 10 High 4.0-10.0 Red Blood Count 5.40 10 Normal 4.30-6.10 Hemoglobin 15.8 g/dL Normal 13.5-17.5 Hematocrit 49.4 % Normal 42.0-52.0 Mean Corpuscular Volume 91.5 fl Normal 80.0-96.0 Mean Corpuscular Hemoglobin 29.3 pg Normal 27.0-33.0 Mean Corpuscular HGB Conc 32.0 g/dL Normal 32.0-36.5 Red Cell Distribution Width 13.2 % Normal 11.5-14.5 Platelet Count, Automated 354 10 Normal 150-450 Neutrophils % 44.5 % Normal 36.0-66.0 Lymph % 41.2 % Normal 24.0-44.0 [place] % 5.6 % Normal 2.0-8.0 Eos % 7.4 % High 0.0-3.0 Baso % 0.8 % Normal 0.0-1.0 Immature Granulocyte % 0.5 % Normal 0-3.0 Nucleated Red Blood Cell % 0.0 % Normal 0-0 Neutrophils # 5.5 10 Normal 1.5-8.5 Lymph # 5.1 10 High 1.5-5.0 [place] # 0.7 10 Normal 0.0-0.8 Eos # 0.9 10 High 0.0-0.5 Baso # 0.1 10 Normal 0.0-0.2 Comprehensive Metabolic Profil 08/27/2021 [facility] Glucose, Fasting 92 mg/dL Normal 70-100 Blood Urea Nitrogen 12 mg/dL Normal 7-18 Creatinine For GFR 0.72 mg/dL Normal 0.70-1.30 Glomerular Filtration Rate > 60.0 Normal >60 1 Sodium Level 139 mEq/L Normal 136-145 Potassium Serum 4.3 mEq/L Normal 3.5-5.1 Chloride Level 107 mEq/L Normal 98-107 Carbon Dioxide Level 27 mEq/L Normal 21-32 Anion Gap 5 mEq/L Low 8-16 Calcium Level 9.4 mg/dL Normal 8.5-10.1 Ast/Sgot 14 U/L Normal 7-37 Alt/SGPT 20 U/L Normal 12-78 Alkaline Phosphatase 101 U/L Normal 45-117 Bilirubin,Total 0.2 mg/dL Normal 0.2-1.0 Total Protein 7.9 GM/DL Normal 6.4-8.2 Albumin 3.6 GM/DL Normal 3.2-5.2 Albumin/Globulin Ratio 0.8 Normal Laboratory test finding 08/27/2021 [facility] Valproic Acid (Depakote) 80.0 UG/ML Normal 50.0-100.0 Lamotrigine (Lamictal) 18.1 ug/mL Normal 2.0-20.0 2 1 Units are mL/min/1.73 m2 Chronic Kidney Disease Staging per NKF: Stage I & II GFR >=60 Normal to Mildly Decreased Stage III GFR 30-59 Moderately Decreased Stage IV GFR 15-29 Severely Decreased Stage V GFR <15 Very Little GFR Left ESRD GFR <15 on [employer]GER 2 Detection Limit = 1.0 Performed at: [id number] [id number] Maker: Kurt Jordan MD, Phone: [phone] Procedures Date Code Description Status 08/09/2021 [address]8787 Office/Outpatient Established Mo d MDM 30-39 Min Completed Medical Devices Description No Information Available Encounters Type Date Location Provider Dx Diagnosis Office Visit 08/09/2021 8:45a Main office - Welcome Giuliana winters P.A.-C. 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 Plan of Treatment Future Appointment(s):* 01/27/2022 12:00 pm - Giulaina Quinteros P.A.-C. at Main office [facility] 08/09/2021 - Giuliana Quinteros P.A.-C.* G25.3 Myoclonus* [...]
--- OUTSIDE RECORDS SUMMARY | 2021-09-28 13:08 | CCD ---
Author Author [facility] Organization [facility] Address Unknown Phone Unavailable Care Team Providers Care Unemployment Insurance Hearing Officer Name Role Phone Trickey, J Giuliana PA Unavailable Unavailable Trickey, J Giuliana PA Unavailable Unavailable Trickey, J Giuliana PA Unavailable Unavailable Trickey, J Giuliana PA Unavailable Unavailable Trickey, J Giuliana PA Unavailable Unavailable Trickey, J Giuliana PA Unavailable Unavailable Trickey, J Giuliana PA Unavailable Unavailable Trickey, J Giuliana PA Unavailable Unavailable Trickey, J Giuliana PA Unavailable Unavailable Trickey, J Giuliana PA Unavailable Unavailable Trickey, J Giuliana PA Unavailable Unavailable Trickey, J Giuliana PA Unavailable Unavailable Trickey, J Giuliana PA Unavailable Unavailable Trickey, J Giuliana PA Unavailable Unavailable Trickey, J Giuliana PA Unavailable Unavailable Trickey, J Giuliana PA Unavailable Unavailable Trickey, J Giuliana PA Unavailable Unavailable Trickey, J Giuliana PA Unavailable Unavailable Trickey, J Giuliana PA Unavailable Unavailable Trickey, J Giuliana PA Unavailable Unavailable Trickey, J Giuliana PA Unavailable Unavailable Trickey, J Giuliana PA Unavailable Unavailable Trickey, J Giuliana PA Unavailable Unavailable Trickey, J Giuliana PA Unavailable Unavailable Trickey, J Giuliana PA Unavailable Unavailable Trickey, J Giuliana PA Unavailable Unavailable Trickey, J Giuliana PA Unavailable Unavailable Trickey, J Giuliana PA Unavailable Unavailable Trickey, J Giuliana PA Unavailable Unavailable Trickey, J Giuliana PA Unavailable Unavailable Trickey, J Giuliana PA Unavailable Unavailable Trickey, J Giuliana PA Unavailable Unavailable Trickey, J Giuliana PA Unavailable Unavailable Trickey, J Giuliana PA Unavailable Unavailable Trickey, J Giuliana PA Unavailable Unavailable Trickey, J Giuliana PA Unavailable Unavailable Trickey, J Giuliana PA Unavailable Unavailable Trickey, J Giuliana PA Unavailable Unavailable Trickey, J Giuliana PA Unavailable Unavailable Trickey, J Giuliana PA Unavailable Unavailable Trickey, J Giuliana PA Unavailable Unavailable Trickey, J Giuliana PA Unavailable Unavailable Trickey, J Giuliana PA Unavailable Unavailable Trickey, J Giuliana PA Unavailable Unavailable Trickey, J Giuliana PA Unavailable Unavailable Trickey, J Giuliana PA Unavailable Unavailable Trickey, J Giuliana PA Unavailable Unavailable Trickey, J Giuliana PA Unavailable Unavailable Trickey, J Giuliana PA Unavailable Unavailable Re-disclosure Warning The records that you are about to access may contain information from federally-assisted alcohol or drug abuse programs. If such information is present, then the following federally mandated warning applies: This information has been disclosed to you from records protected by federal confidentiality rules (42 CFR part 2). The federal rules prohibit you from making any further disclosure of this information unless further disclosure is expressly permitted by the written consent of the person to whom it pertains or as otherwise permitted by 42 CFR part 2. A general authorization for the release of medical or other information is NOT sufficient for this purpose. The Federal rules restrict any use of the information to criminally investigate or prosecute any alcohol or drug abuse patient.The records that you are about to access may contain highly sensitive health information, the redisclosure of which is protected by Article 27-F of the [facility] Public Health law. If you continue you may have access to information: Regarding HIV / AIDS; Provided by facilities licensed or operated by the [facility] Office of Mental Health; or Provided by the [facility] Office for People With Developmental Disabilities. If such information is present, then the following [facility] mandated warning applies: This information has been disclosed to you from confidential records which are protected by state law. State law prohibits you from making any further disclosure of this information without the specific written consent of the person to whom it pertains, or as otherwise permitted by law. Any unauthorized further disclosure in violation of state law may result in a fine or half-way sentence or both. A general authorization for the release of medical or other information is NOT sufficient authorization for further disc losure. Encounters Encounter Providers Location Date Indications Data Source(s ) [place] [address] [facility] [address] 08/27/2021 12:00:00 AM EDT eCW1 ([facility]) Outpatient Attender: Giuliana FERNANDEZ Main office - [facility] n 08/09/2021 08:45:00 AM EDT MEDENT ([facility]) Unknown [address] [facility] [address] 07/28/2021 12:00:00 AM EDT eCW1 ([facility]) Unknown [address] [facility] [place] [address] 07/02/2021 12:00:00 AM EDT eCW1 ([facility]) Unknown [address] [facility] [place] [address] 06/15/2021 12:00:00 AM EDT eCW1 ([facility]) Unknown [address] [facility] [address] 05/11/2021 12:00:00 AM EDT eCW1 ([facility]) Unknown [address] [facility] [place] [address] 05/10/2021 12:00:00 AM EDT eCW1 ([facility]) Unknown [address] [facility] [place] [address] 04/06/2021 12:00:00 AM EDT eCW1 ([facility]) Unknown [address] [facility] [address] 03/12/2021 12:00:00 AM EDT eCW1 ([facility]) Outpatient [address] [facility] [place] [address] 02/19/2021 12:00:00 AM EDT eCW1 ([facility]) Outpatient Attender: Giuliana FERNANDEZ [facility] office - [facility] n 02/03/2021 10:30:00 AM EDT MEDENT ([facility]) [place] [address] [facility] [place] [address] 01/25/2021 12:00:00 AM EDT eCW1 ([facility]) Unknown [address] [facility] [address] 12/28/2020 12:00:00 AM EST eCW1 ([facility]) Unknown [address] [facility] [address] 12/28/2020 12:00:00 AM EST eCW1 ([facility]) Unknown [address] [facility] [address] 09/24/2020 12:00:00 AM EST eCW1 ([facility]) Outpatient [address] [facility] [address] 08/21/2020 12:00:00 AM EDT eCW1 ([facility]) Outpatient Attender: Giuliana FERNANDEZ Main office - [facility] 08/03/2020 10:45:00 AM EDT MEDENT ([facility]) Immunizations Vaccine Date Status Description Data Source(s) COVID-19 VACCINE Moderna 03/16/2021 12:00:00 AM EDT completed [facility] Vaccine Series Complete: YESThis Data wa s Submitted to [facility]. COVID-19 VACCINE Moderna 02/16/2021 12:00:00 AM EDT completed [facility]IS Vaccine Series Complete: NOThis Data was Submitted to [facility]. Medications Medication Brand Name Start Date Product Form Dose Route Admi nistrative Instructions Pharmacy Instructions Status Indications Reaction Description Data Source(s) Ensure - Ensure - 07/29/2021 12:00:00 AM EDT activ e Ensure - eCW1 ([facility]) Ensure - Ensure - 07/29/2021 12:00:00 AM EDT activ e Ensure - eCW1 ([facility]) Bedrail UNK 04/15/2021 12:00:00 AM EDT active Bedrail eCW1 ([facility]) Bedrail UNK 04/15/2021 12:00:00 AM EDT active Bedrail eCW1 ([facility]) Bedrail UNK 04/15/2021 12:00:00 AM EDT active Bedrail eCW1 ([facility]) Bedrail UNK 04/15/2021 12:00:00 AM EDT active Bedrail eCW1 ([facility]) Bedrail UNK 04/15/2021 12:00:00 AM EDT active Bedrail eCW1 ([facility]) Bedrail UNK 04/15/2021 12:00:00 AM EDT active Bedrail eCW1 ([facility]) Bedrail UNK 04/15/2021 12:00:00 AM EDT active Bedrail eCW1 ([facility]) Wheelchair - Wheelchair - 04/09/2021 12:00:00 AM EDT active Wheelchair - eCW1 ([facility]) Wheelchair - Wheelchair - 04/09/2021 12:00:00 AM EDT active Wheelchair - eCW1 ([facility]) Wheelchair - Wheelchair - 04/09/2021 12:00:00 AM EDT active Wheelchair - eCW1 ([facility]) Wheelchair - Wheelchair - 04/09/2021 12:00:00 AM EDT active Wheelchair - eCW1 ([facility]) Wheelchair - Wheelchair - 04/09/2021 12:00:00 AM EDT active Wheelchair - eCW1 ([facility]) Wheelchair - Wheelchair - 04/09/2021 12:00:00 AM EDT active Wheelchair - eCW1 ([facility]) Wheelchair - Wheelchair - 04/09/2021 12:00:00 AM EDT active Wheelchair - eCW1 ([facility]) Wheelchair battery repair and maintenance UNK 03/23/2021 12:00:0 0 AM EDT active Wheelchair battery repair and maintenance eCW1 ([facility]) Wheelchair battery repair and maintenance UNK 03/23/2021 12:00:0 0 AM EDT active Wheelchair battery repair and maintenance eCW1 ([facility]) Wheelchair battery repair and maintenance UNK 03/23/2021 12:00:0 0 AM EDT active Wheelchair battery repair and maintenance eCW1 ([facility]) Wheelchair battery repair and maintenance UNK 03/23/2021 12:00:0 0 AM EDT active Wheelchair battery repair and maintenance eCW1 ([facility]) Wheelchair battery repair and maintenance UNK 03/23/2021 12:00:0 0 AM EDT active Wheelchair battery repair and maintenance eCW1 ([facility]) Wheelchair battery repair and maintenance UNK 03/23/2021 12:00:0 0 AM EDT active Wheelchair battery repair and maintenance eCW1 ([facility]) Wheelchair battery repair and maintenance UNK 03/23/2021 12:00:0 0 AM EDT active Wheelchair battery repair and maintenance eCW1 ([facility]) Wheelchair battery repair and maintenance UNK 03/23/2021 12:00:0 0 AM EDT active Wheelchair battery repair and maintenance eCW1 ([facility]) Insurance Providers Payer name Policy type / Coverage type Policy ID Covered democrat ID Covered democrat's relationship to carmichael Policy Carmichael Plan Information MEDICAID [id number] SP [id number] MEDICAID M [id number] Self [id number] Medicaid P [id number] S [id number] MEDICAID [id number] SP [id number] MEDICAID M [id number] S [id number] [facility]-Medicaid [id number] ANSI-Medicaid [id number] Medicaid Medicaid [id number] Self [id number] ANSI-Medicaid [id number] ANSI-Medicaid [id number] ANSI-Medicaid [id number] ANSI-Medicaid [id number] ANSI-Medicaid [id number] [facility] [id number] MEDICAID-O/P [id number] P Medicaid Medicaid [id number] Self SELF PAY UNAVAILABLE SP UNAVAILA BLE MEDICAID-O/P UNAVAILABLE UNAVA ILABLE [facility] MEDICAID [id number] SP [id number] P [id number] EMEDNY [id number] SP [id number] Problems, Conditions, and Diagnoses Code Display Name Description Problem Type Effective Dates Data Source(s) N31.9 Neurogenic bladder Neurogenic bladder Problem 12:00:00 AM EDT eCW1 ([facility]) Surgeries/Procedures Procedure Description Date Indications Data Source(s) OFFICE OUTPATIENT VISIT 25 MINUTES 08/09/2021 12:00:00 AM EDT MEDENT ([facility] ) Results ID Date Data Source [id number] 08/27/2021 11:54:00 AM EDT MEDENT ([facility] ) Name Value Range Interpretation Code Description Data Rita rce(s) Supporting Document(s) Lamotrigine [Mass/volume] in Serum or Plasma 18.1 ug/mL 2.0-20.0 MEDENT ([facility] ) Detection Limit = 1.0 Performed at: [facility] [id number] Coverer: Kurt Jordan MD, Phone: [phone] Valproate [Mass/volume] in Serum or Plasma 80.0 UG/ML 50.0-100.0 MEDENT ([facility]) ID Date Data Source [id number] 08/27/2021 11:54:00 AM EDT MEDENT ([facility]) Name Value Range Interpretation Code Description Data Rita rce(s) Supporting Document(s) Blood Urea Nitrogen 12 mg/dL 7-18 MEDENT ([facility], ) Glucose, Fasting 92 mg/dL 70-100 MEDENT ([facility]) Glomerular Filtration Rate Laboratory test result [facility] ([facility]) <content>Units are mL/min/1.73 m2</content>
<content></content>
<content>Chronic Kidney Disease Staging per NKF:</content>
<content></content>
<content>Stage I & II GFR >=60 Normal to Mildly Decreased</content>
<content>Stage III GFR 30- 59 Moderately Decreased</content>
<content>Stage IV GFR 15-29 Severely Decreased</content>
<content>Stage V GFR <15 Very Little GFR Left</content>
<content>ESRD GFR <15 on WHEEL ADJUSTER</content>
<content></content> Creatinine For GFR 0.72 mg/dL 0.70-1.30 MEDENT ([facility], ) Sodium Level 139 meq/L 136-145 MEDENT ([facility]) Potassium Serum 4.3 meq/L 3.5-5.1 MEDENT ([facility]) Chloride Level 107 meq/L 98-107 MEDENT ([facility]) Carbon Dioxide Level 27 meq/L 21-32 MEDENT ([facility]) Anion Gap 5 meq/L 8-16 MEDENT ([facility]) Calcium Level 9.4 mg/dL 8.5-10.1 MEDENT ([facility], ) Ast/Sgot 14 U/L 7-37 MEDENT ([facility]) Alt/SGPT 20 U/L 12-78 MEDENT ([facility]) Alkaline Phosphatase 101 U/L 45-117 MEDENT ([facility]) Bilirubin,Total 0.2 mg/dL 0.2-1.0 MEDENT ([facility]) Total Protein 7.9 GM/DL 6.4-8.2 MEDENT ([facility]) Albumin/Globulin Ratio 0.8 MEDENT ([facility]) Albumin 3.6 GM/DL 3.2-5.2 MEDENT ([facility]) ID Date Data Source [id number] 08/27/2021 11:54:00 AM EDT MEDENT ([facility]) Name Value Range Interpretation Code Description Data Rita rce(s) Supporting Document(s) White Blood Count 12.4 10 4.0-10.0 MEDENT ([facility]) Red Blood Count 5.40 10 4.30-6.10 MEDENT ([facility]) Hematocrit 49.4 % 42.0-52.0 MEDENT ([facility]) Hemoglobin 15.8 g/dL 13.5-17.5 MEDENT ([facility]) Mean Corpuscular Volume 91.5 fl 80.0-96.0 M EDENT ([facility]) Mean Corpuscular Hemoglobin 29.3 pg 27.0-33.0 MEDENT ([facility]) Mean Corpuscular HGB Conc 32.0 g/dL 32.0-36.5 MEDENT ([facility]) Red Cell Distribution Width 13.2 % 11.5-14.5 MEDENT ([facility]) Platelet Count, Automated 354 10 150-450 MEDENT ([facility]) Neutrophils % 44.5 % 36.0-66.0 MEDENT ([facility]) [place] % 5.6 % 2.0-8.0 MEDENT ([facility]) Lymph % 41.2 % 24.0-44.0 MEDENT ([facility]) Eos % 7.4 % 0.0-3.0 MEDENT ([facility]) Baso % 0.8 % 0.0-1.0 MEDENT ([facility]) Immature Granulocyte % 0.5 % 0-3.0 MEDENT ([facility] ) Nucleated Red Blood Cell % 0.0 % 0-0 MED ENT ([facility], ) Neutrophils # 5.5 10 1.5-8.5 MEDENT ([facility], ) Lymph # 5.1 10 1.5-5.0 MEDENT ([facility]) Eos # 0.9 10 0.0-0.5 MEDENT ([facility], ) [place] # 0.7 10 0.0-0.8 MEDENT ([facility], ) Baso # 0.1 10 0.0-0.2 MEDENT ([facility], ) ID Date Data Source CBC with Differential 08/27/2021 12:00:00 AM EDT eCW1 ([facility]) Name Value Range Interpretation Code Description Data Rita rce(s) Supporting Document(s) 12.9 4.0-10.0 WHITE BLOOD COUNT eCW1 ([facility]) 49.5 42.0-52.0 HEMATOCRIT eCW1 ([facility]) 5.39 4.30-6.10 RED BLOOD COUNT eCW1 ([facility]) 15.7 13.5-17.5 HEMOGLOBIN eCW1 ([facility]) 29.1 27.0-33.0 MEAN CORPUSCULAR HEMOGLOB IN eCW1 ([facility]) 91.8 80.0-96.0 MEAN CORPUSCULAR VOLUME e CW1 ([facility]) 44.9 36.0-66.0 NEUTROPHILS % eCW1 ([facility]) 13.2 11.5-14.5 RED CELL DISTRIBUTION WID TH eCW1 ([facility]) 31.7 32.0-36.5 MEAN CORPUSCULAR HGB CONC eCW1 ([facility]) 311 150-450 PLATELET COUNT, AUTOMATED eCW1 ([facility]) 1.0 0.0-1.0 BASO % eCW1 ([facility]) 7.5 0.0-3.0 EOS % eCW1 ([facility]) 6.0 2.0-8.0 MONO % eCW1 ([facility]) 40.2 24.0-44.0 LYMPH % eCW1 ([facility]) 0.8 0.0-0.8 MONO # eCW1 ([facility]) 5.2 1.5-5.0 LYMPH # eCW1 ([facility]) 5.8 1.5-8.5 NEUTROPHILS # eCW1 ([facility]) 0.1 0.0-0.2 BASO # eCW1 ([facility]) 1.0 0.0-0.5 EOS # eCW1 ([facility]) ID Date Data Source VITAMIN D [id number] 08/27/2021 12:00:00 AM EDT eCW1 ([facility]) Name Value Range Interpretation Code Description Data Rita rce(s) Supporting Document(s) 39.9 30.0-100.0 TOTAL 25(OH) VITAMIN D eC W1 ([facility]) ID Date Data Source Comprehensive Metabolic Profile (CMP) 08/27/2021 12:00:00 AM EDT eCW1 ([facility]) Name Value Range Interpretation Code Description Data Rita rce(s) Supporting Document(s) 91 70-100 GLUCOSE, FASTING eCW1 ([facility]) 11 7-18 BLOOD UREA NITROGEN eCW1 ([facility]) 0.65 0.70-1.30 CREATININE FOR GFR eCW1 ([facility]) 139 136-145 SODIUM LEVEL eCW1 ([facility]) > 60.0 >60 GLOMERULAR FILTRATION RATE eCW 1 ([facility]) 4.3 3.5-5.1 POTASSIUM SERUM eCW1 ([facility]) 108 98-107 CHLORIDE LEVEL eCW1 ([facility]) 28 21-32 CARBON DIOXIDE LEVEL eCW1 ([facility]) 20 12-78 ALT/SGPT eCW1 ([facility]) 102 45-117 ALKALINE PHOSPHATASE eCW1 ([facility]) 13 7-37 AST/SGOT eCW1 ([facility]) 9.9 8.5-10.1 CALCIUM LEVEL eCW1 ([facility]) 0.9 ALBUMIN/GLOBULIN RATIO eCW1 ([facility]) 0.2 0.2-1.0 BILIRUBIN,TOTAL eCW1 ([facility]) 7.7 6.4-8.2 TOTAL PROTEIN eCW1 ([facility]) 3.6 3.2-5.2 ALBUMIN eCW1 ([facility]) ID Date Data Source LIPID PANEL (CARDIAC RISK) 02/19/2021 12:00:00 AM EDT eCW1 ( [facility]) Name Value Range Interpretation Code Description Data Rita rce(s) Supporting Document(s) Triglyceride [Mass/volume] in Serum or Plasma by calculation 174 <150 TRIGLYCERIDES LEVEL eCW1 ([facility]) Cholesterol in LDL [Mass/volume] in Serum or Plasma by calculation 71 <100 LDL CHOLESTEROL eCW1 ([facility]) Cholesterol in HDL [Moles/volume] in Serum or Plasma 41 >40 HDL CHOLESTEROL eCW1 ([facility]) Cholesterol [Moles/volume] in Serum or Plasma 147 <200 CHOLESTEROL LEVEL eCW1 ([facility]) 3.585 <5 CHOLESTEROL RISK RATIO eCW1 ([facility]) 106 NON-HDL-C eCW1 ([facility]) ID Date Data Source [id number] 02/19/2021 12:00:00 AM EDT eCW1 ([facility]) Name Value Range Interpretation Code Description Data Rita rce(s) Supporting Document(s) Hemoglobin A1c/Hemoglobin.total in Blood 5.0 HEMOGLOBIN A1c eCW1 ([facility]) ID Date Data Source [id number] 02/09/2021 12:01:00 PM EDT [facility] Name Value Range Interpretation Code Description Data Rita rce(s) Supporting Document(s) Lamotrigine [Mass/volume] in Serum or Plasma 13.0 ug/mL 2.0-20.0 [facility] Testing on this sample was performed by homogeneous enzyme immunoassay. Detection Limit = 1.0 Performed at: [facility] [address] [id number] Coverer: Lizeth [facility], Phone: [phone] Valproate [Mass/volume] in Serum or Plasma 75.0 UG/ML 50.0-100.0 [facility] ID Date Data Source [id number] 02/09/2021 12:01:00 PM EDT [facility] ([facility]) Name Value Range Interpretation Code Description Data Rita rce(s) Supporting Document(s) Creatinine For GFR 0.63 mg/dL 0.70-1.30 [facility] Blood Urea Nitrogen 14 mg/dL 7-18 MEDENT ([facility]) Glucose, Fasting 97 mg/dL 70-100 MEDENT ([facility]) Sodium Level 138 meq/L 136-145 MEDENT ([facility]) Glomerular Filtration Rate Laboratory test result [facility] ([facility]) <content>Units are mL/min/1.73 m2</content>
<content></content>
<content>Chronic Kidney Disease Staging per NKF:</content>
<content></content>
<content>Stage I & II GFR >=60 Normal to Mildly Decreased</content>
<content>Stage III GFR 30- 59 Moderately Decreased</content>
<content>Stage IV GFR 15-29 Severely Decreased</content>
<content>Stage V GFR <15 Very Little GFR Left</content>
<content>ESRD GFR <15 on WHEEL ADJUSTER</content>
<content></content> Potassium Serum 4.2 meq/L 3.5-5.1 [facility] Carbon Dioxide Level 29 meq/L 21-32 MEDENT ([facility]) Chloride Level 103 meq/L 98-107 MEDENT ([facility]) Anion Gap 6 meq/L 8-16 MEDENT ([facility]) Calcium Level 10.5 mg/dL 8.5-10.1 MEDENT ([facility]) Ast/Sgot 11 U/L 7-37 MEDENT ([facility]) Alt/SGPT 21 U/L 12-78 MEDENT ([facility]) Bilirubin,Total 0.2 mg/dL 0.2-1.0 MED[facility] ([facility]) Alkaline Phosphatase 111 U/L 45-117 MEDENT ([facility]) Total Protein 7.9 GM/DL 6.4-8.2 MEDENT ([facility]) Albumin 3.9 GM/DL 3.2-5.2 MEDENT ([facility]) Albumin/Globulin Ratio 1.0 MED[facility] ([facility]) ID Date Data Source [id number] 02/09/2021 12:01:00 PM EDT [facility] ([facility]) Name Value Range Interpretation Code Description Data Rita rce(s) Supporting Document(s) White Blood Count 13.3 10 4.0-10.0 [facility] ([facility]) A Pathologist review of this differentia l can help in the evaluation of a differential diagnosis. Please order a Pathologist Review (PERISM) if deemed necessary. Results are subject to change if a Pathologist Review is performed. Red Blood Count 5.41 10 4.30-6.10 MEDENT ([facility]) Hematocrit 49.7 % 42.0-52.0 MEDENT ([facility]) Hemoglobin 15.9 g/dL 13.5-17.5 MEDENT ([facility]) Mean Corpuscular Volume 91.9 fl 80.0-96.0 M EDENT ([facility]) Red Cell Distribution Width 13.0 % 11.5-14.5 [facility] [facility]) Mean Corpuscular HGB Conc 32.0 g/dL 32.0-36.5 [facility] ([facility]) Mean Corpuscular Hemoglobin 29.4 pg 27.0-33.0 [facility] ([facility]) Platelet Count, Automated 362 10 150-450 [facility] ([facility]) Neutrophils % 48.3 % 36.0-66.0 [facility] ([facility]) [place] % 5.3 % 2.0-8.0 [facility] ([facility]) Eos % 2.3 % 0.0-3.0 [facility] ([facility]) Lymph % 43.2 % 24.0-44.0 [facility] ([facility]) Baso % 0.5 % 0.0-1.0 [facility] ([facility]) Immature Granulocyte % 0.4 % 0-3.0 [facility] ([facility]) Nucleated Red Blood Cell % 0.0 % 0-0 MED ENT ([facility]) Neutrophils # 6.4 10 1.5-8.5 [facility] ([facility], ) Lymph # 5.8 10 1.5-5.0 [facility] ([facility]) [place] # 0.7 10 0.0-0.8 [facility] ([facility]) Eos # 0.3 10 0.0-0.5 [facility] ([facility]) Baso # 0.1 10 0.0-0.2 [facility] ([facility]) ID Date Data Source [id number] 08/03/2020 11:44:00 AM EDT [facility] ([facility]) Name Value Range Interpretation Code Description Data Rita rce(s) Supporting Document(s) Lamotrigine [Mass/volume] in Serum or Plasma 14.1 ug/mL 2.0-20.0 [facility] ([facility]) Testing on this sample was performed by homogeneous enzyme immunoassay. Detection Limit = 1.0 Performed at: [facility] [address] [id number] Coverer: Liz[facility], Phone: [phone] Valproate [Mass/volume] in Serum or Plasma 76.6 UG/ML 50.0-100.0 [facility] ([facility]) ID Date Data Source [id number] 08/03/2020 11:44:00 AM EDT [facility] ([facility]) Name Value Range Interpretation Code Description Data Rita rce(s) Supporting Document(s) Glucose, Fasting 86 mg/dL 70-100 [facility] ([facility]) Blood Urea Nitrogen 11 mg/dL 7-18 [facility] ([facility]) Creatinine For GFR 0.62 mg/dL 0.70-1.30 [facility] ([facility]) Glomerular Filtration Rate Laboratory test result [facility] ([facility]) <content>Units are mL/min/1.73 m2</content>
<content></content>
<content>Chronic Kidney Disease Staging per NKF:</content>
<content></content>
<content>Stage I & II GFR >=60 Normal to Mildly Decreased</content>
<content>Stage III GFR 30- 59 Moderately Decreased</content>
<content>Stage IV GFR 15-29 Severely Decreased</content>
<content>Stage V GFR <15 Very Little GFR Left</content>
<content>ESRD GFR <15 on WHEEL ADJUSTER</content>
<content></content> Sodium Level 138 meq/L 136-145 [facility] ([facility]) Chloride Level 106 meq/L 98-107 [facility] ([facility]) Potassium Serum 4.7 meq/L 3.5-5.1 [facility] ([facility]) Calcium Level 10.1 mg/dL 8.5-10.1 [facility] ([facility]) Anion Gap 4 meq/L 8-16 [facility] ([facility]) Carbon Dioxide Level 28 meq/L 21-32 [facility] ([facility]) Alkaline Phosphatase 101 U/L 45-117 [facility] ([facility]) Alt/SGPT 16 U/L 12-78 [facility] ([facility]) Ast/Sgot 15 U/L 7-37 [facility] ([facility]) Albumin 3.7 GM/DL 3.2-5.2 [facility] ([facility]) Bilirubin,Total 0.1 mg/dL 0.2-1.0 [facility] ([facility]) Total Protein 7.5 GM/DL 6.4-8.2 [facility] ([facility]) Albumin/Globulin Ratio 1.0 [facility] ([facility]) ID Date Data Source [id number] 08/03/2020 11:44:00 AM EDT [facility] ([facility]) Name Value Range Interpretation Code Description Data Rita rce(s) Supporting Document(s) Red Blood Count 4.94 10 4.30-6.10 [facility] ([facility]) White Blood Count 11.8 10 4.0-10.0 [facility] ([facility]) A Pathologist review of this differentia l can help in the evaluation of a differential diagnosis. Please order a Pathologist Review (PERISM) if deemed necessary. Results are subject to change if a Pathologist Review is performed. Mean Corpuscular Volume 92.3 fl 80.0-96.0 M EDENT ([facility]) Hematocrit 45.6 % 42.0-52.0 [facility] ([facility]) Hemoglobin 14.4 g/dL 13.5-17.5 [facility] ([facility]) Red Cell Distribution Width 13.5 % 11.5-14.5 [facility] ([facility]) Mean Corpuscular Hemoglobin 29.1 pg 27.0-33.0 [facility] ([facility]) Mean Corpuscular HGB Conc 31.6 g/dL 32.0-36.5 [facility] ([facility]) Neutrophils % 45.4 % 36.0-66.0 [facility] ([facility]) Lymph % 46.9 % 24.0-44.0 [facility] ([facility]) Platelet Count, Automated 358 10 150-450 [facility] ([facility]) [place] % 5.5 % 0.0-5.0 [facility] ([facility]) Eos % 1.4 % 0.0-3.0 [facility] ([facility]) Baso % 0.5 % 0.0-1.0 [facility] ([facility]) Nucleated Red Blood Cell % 0.0 % 0-0 MED ENT ([facility], ) Neutrophils # 5.4 10 1.5-8.5 [facility] ([facility], ) Immature Granulocyte % 0.3 % 0-3.0 [facility] ([facility], ) Lymph # 5.6 10 1.5-5.0 [facility] ([facility], ) Baso # 0.1 10 0.0-0.2 [facility] ([facility], ) Eos # 0.2 10 0.0-0.5 [facility] ([facility], ) [place] # 0.7 10 0.0-0.8 [facility] ([facility], ) Procedure Social History Code Duration Value Status Description Data Source(s ) Smoking 08/28/2021 12:00:00 AM EDT Never Smoker completed Never S moker eCW1 ([facility]) Smoking 02/19/2021 12:00:00 AM EDT Never Smoker completed Never S moker eCW1 ([facility]) Smoking 02/19/2021 12:00:00 AM EDT Never Smoker completed Never S moker eCW1 ([facility]) Smoking 02/19/2021 12:00:00 AM EDT Never Smoker completed Never S moker eCW1 ([facility]) Smoking 02/19/2021 12:00:00 AM EDT Never Smoker completed Never S moker eCW1 ([facility]) Smoking 02/19/2021 12:00:00 AM EDT Never Smoker completed Never S moker eCW1 ([facility]) Smoking 02/19/2021 12:00:00 AM EDT Never Smoker completed Never S moker eCW1 ([facility]) Smoking 02/19/2021 12:00:00 AM EDT Never Smoker completed Never S moker eCW1 ([facility]) Smoking 02/19/2021 12:00:00 AM EDT Never Smoker completed Never S moker eCW1 ([facility]) Smoking 08/21/2020 12:00:00 AM EDT Never Smoker completed Never S moker eCW1 ([facility]) Smoking 08/21/2020 12:00:00 AM EDT Never Smoker completed Never S moker eCW1 ([facility]) Smoking 08/21/2020 12:00:00 AM EDT Never Smoker completed Never S moker eCW1 ([facility]) Smoking 08/21/2020 12:00:00 AM EDT Never Smoker completed Never S moker eCW1 ([facility]) Smoking 08/21/2020 12:00:00 AM EDT Never Smoker completed Never S moker eCW1 ([facility]) Vital Signs ID Date Data Source UNK Name Value Range Interpretation Code Description Data Source(s) Body weight 151 [lb_av] 151 [lb_av] eCW1 ([facility]) Respiratory rate 20 /min 20 /min eCW1 ([facility]) Body temperature 98.6 [degF] 98.6 [degF] eCW1 ( [facility]) Systolic blood pressure 126 mm[Hg] 126 mm[Hg] e CW1 ([facility]) Diastolic blood pressure 72 mm[Hg] 72 mm[Hg] eCW1 ([facility]) Body weight 68.49 kg 68.49 kg eCW1 ([facility]) Body height 59 [in_i] 59 [in_i] eCW1 ([facility]) Body mass index (BMI) [Ratio] 30.49 kg/m2 30.49 kg/m2 eCW1 ([facility]) Heart rate 111 /min 111 /min eCW1 ([facility]) Respiratory rate 16 /min 16 /min MED[facility] ( [facility] ) Systolic blood pressure 120 mm[Hg] 120 mm[Hg] M EDENT ([facility], ) Diastolic blood pressure 70 mm[Hg] 70 mm[Hg] [facility] ([facility] ) Heart rate 72 /min 72 /min [facility] ([facility] ) Body weight 151 [lb_av] 151 [lb_av] eCW1 ([facility]) Body height 59 [in_i] 59 [in_i] eCW1 ([facility]) Body mass index (BMI) [Ratio] 30.49 kg/m2 30.49 kg/m2 eCW1 ([facility]) Heart rate 88 /min 88 /min eCW1 ([facility]) Respiratory rate 18 /min 18 /min eCW1 ([facility]) Body temperature 98.3 [degF] 98.3 [degF] eCW1 ( [facility]) Systolic blood pressure 124 mm[Hg] 124 mm[Hg] e CW1 ([facility]) Diastolic blood pressure 72 mm[Hg] 72 mm[Hg] eCW1 ([facility]) Body weight 130 [lb_av] 130 [lb_av] eCW1 ([facility]) Body height 59 [in_i] 59 [in_i] eCW1 ([facility]) Body mass index (BMI) [Ratio] 26.25 kg/m2 26.25 kg/m2 eCW1 ([facility]) Heart rate 97 /min 97 /min eCW1 ([facility]) Diastolic blood pressure 88 mm[Hg] 88 mm[Hg] eCW1 ([facility]) Respiratory rate 18 /min 18 /min eCW1 ([facility]) Body temperature 99 [degF] 99 [degF] eCW1 ([facility]) Systolic blood pressure 122 mm[Hg] 122 mm[Hg] e CW1 ([facility]) Diastolic blood pressure 80 mm[Hg] 80 mm[Hg] [facility] ([facility] ) Heart rate 76 /min 76 /min [facility] ([facility] ) Respiratory rate 16 /min 16 /min [facility] ( [facility] ) Body weight 130.00 [lb_av] 130.00 [lb_av] MEDEN T ([facility] ) Systolic blood pressure 120 mm[Hg] 120 mm[Hg] M EDENT ([facility] ) Patient Treatment Plan of Care Planned Activity Planned Date Details Description Data Source (s) Ensure - 07/29/2021 12:00:00 AM EDT e CW1 ([facility]) Bedrail 04/15/2021 12:00:00 AM EDT e CW1 ([facility]) Bedrail 04/15/2021 12:00:00 AM EDT e CW1 ([facility]) Bedrail 04/15/2021 12:00:00 AM EDT e CW1 ([facility]) Bedrail 04/15/2021 12:00:00 AM EDT e CW1 ([facility]) Bedrail 04/15/2021 12:00:00 AM EDT e CW1 ([facility]) Bedrail 04/15/2021 12:00:00 AM EDT e CW1 ([facility]) Bedrail 04/15/2021 12:00:00 AM EDT e CW1 ([facility]) Wheelchair - 04/09/2021 12:00:00 AM EDT e CW1 ([facility]) Wheelchair - 04/09/2021 12:00:00 AM EDT e CW1 ([facility]) Wheelchair - 04/09/2021 12:00:00 AM EDT e CW1 ([facility]) Wheelchair - 04/09/2021 12:00:00 AM EDT e CW1 ([facility]) Wheelchair - 04/09/2021 12:00:00 AM EDT e CW1 ([facility]) Wheelchair - 04/09/2021 12:00:00 AM EDT e CW1 ([facility]) Wheelchair - 04/09/2021 12:00:00 AM EDT e CW1 ([facility]) Wheelchair battery repair and maintenance 03/23/2021 12:00:00 AM ED T eCW1 ([facility]) Wheelchair battery repair and maintenance 03/23/2021 12:00:00 AM ED T eCW1 ([facility]) Wheelchair battery repair and maintenance 03/23/2021 12:00:00 AM ED T eCW1 ([facility]) Wheelchair battery repair and maintenance 03/23/2021 12:00:00 AM ED T eCW1 ([facility]) Wheelchair battery repair and maintenance 03/23/2021 12:00:00 AM ED T eCW1 ([facility]) Wheelchair battery repair and maintenance 03/23/2021 12:00:00 AM ED T eCW1 ([facility]) Wheelchair battery repair and maintenance 03/23/2021 12:00:00 AM ED T eCW1 ([facility]) Wheelchair battery repair and maintenance 03/23/2021 12:00:00 AM ED T eCW1 ([facility])
[2021-09-28] MEDS ORDERED: NS 1,000 ML IV SCH (13:55)
[2021-09-28] MEDS ORDERED: MORPHINE 4 MG/ML 1ML VIAL/SYRINGE (J2270) IV ONE (13:55)
[2021-09-28 14:05] LABS: BASO # 0.1 10^3/uL (0.0-0.2); BASO % 0.5 % (0.0-1.0); EOS # 0.2 10^3/uL (0.0-0.5); EOS % 1.5 % (0.0-3.0); HEMATOCRIT 42.8 % (42.0-52.0); HEMOGLOBIN 13.8 g/dl (13.5-17.5); LYMPH # 5.9 10^3/uL (1.5-5.0); LYMPH % 39.3 % (24.0-44.0); MEAN CORPUSCULAR HEMOGLOBIN 29.2 pg (27.0-33.0); MEAN CORPUSCULAR HGB CONC 32.2 g/dl (32.0-36.5); MEAN CORPUSCULAR VOLUME 90.5 fl (80.0-96.0); MONO # 1.1 10^3/uL (0.0-0.8); MONO % 7.1 % (2.0-8.0); NEUTROPHILS # 7.7 10^3/uL (1.5-8.5); NEUTROPHILS % 51.1 % (36.0-66.0); PLATELET COUNT, AUTOMATED 468 10^3/uL (150-450); RED BLOOD COUNT 4.73 10^6/uL (4.30-6.10); WHITE BLOOD COUNT 15.1 10^3/uL (4.0-10.0)
[2021-09-28 14:37] LABS: ALBUMIN 3.3 GM/DL (3.2-5.2); ALT/SGPT 29 U/L (12-78); BILIRUBIN,DIRECT < 0.1 MG/DL (0.0-0.2); BILIRUBIN,TOTAL 0.3 MG/DL (0.2-1.0); BLOOD UREA NITROGEN 9 MG/DL (7-18); CALCIUM LEVEL 9.9 MG/DL (8.5-10.1); CARBON DIOXIDE LEVEL 23 MEQ/L (21-32); CHLORIDE LEVEL 107 MEQ/L (98-107); CREATININE FOR GFR 0.65 MG/DL (0.70-1.30); GLOMERULAR FILTRATION RATE > 60.0 (>60); GLUCOSE, FASTING 84 MG/DL (70-100); LIPASE 59 U/L (73-393); SODIUM LEVEL 142 MEQ/L (136-145); TOTAL PROTEIN 7.4 GM/DL (6.4-8.2)
[2021-09-28 14:38] LABS: CK-MB VALUE MASS 1.5 NG/ML (<3.6); CPK CREATINE PHOSPHOKINASE 214 U/L (39-308); TROPONIN I < 0.02 NG/ML (< 0.10)
--- NOTE | 2021-09-28 14:50 | REP ---
INDICATION: hypertension COMPARISON: 12/31/2019 TECHNIQUE: Portable AP view of the chest FINDINGS: The mediastinum and cardiac silhouette are stable and within normal limits for portable technique. The lung duke demonstrate chronic appearing changes without acute focal consolidation, effusion, or pneumothorax. Skeletal structures are intact. IMPRESSION: Chronic appearing changes. No focal consolidation or effusion. Subtle airspace disease cannot be excluded. <Electronically signed by Don Pierre > 09/28/21 [id number]
--- NOTE | 2021-09-28 14:53 | REP ---
INDICATION: abd pain. COMPARISON: 02/07/2020 FINDINGS: KUB shows the intestinal gas pattern to be nonspecific. The organ silhouettes insofar as delineated are unremarkable. There is no evidence of free intraperitoneal air. IMPRESSION: Nonspecific. <Electronically signed by Afshin Foy > 09/28/21 [id number]
[2021-09-28] MEDS ORDERED: ISOVUE-370 76% 100ML VIAL As Ordered ONE (15:02)
--- NOTE | 2021-09-28 15:52 | REP ---
INDICATION: gen abd pain. COMPARISON: 12/26/2020 TECHNIQUE: Axial contrast-enhanced images from the lung bases to the pubic symphysis using 100 cc Isovue 370 intravenous contrast material. Coronal and sagittal reformations obtained. This CT examination was performed using the following dose reduction techniques: Automated exposure control, adjustment of mA and/or kv according to the patient's size, and the use of iterative reconstruction technique. FINDINGS: Liver, spleen, pancreas, bilateral adrenal glands and kidneys are essentially normal. 2.6 cm right renal cyst and suspected 2 mm nonobstructing left lower pole renal calculus identified. No perinephric stranding or hydronephrosis. Hiatal hernia at the gastroesophageal junction. Small and large bowel without obstruction or acute inflammatory process. Normal terminal ileum and appendix are identified in the right lower quadrant.. Pelvis demonstrates Randolph catheter in collapsed bladder and age-appropriate prostate/seminal vesicles. No ascites. No free air. No intraperitoneal or retroperitoneal adenopathy. Abdominal aorta and vasculature appear normal. Musculoskeletal structures are intact and without acute osseous abnormality. IMPRESSION: No obvious acute abdominopelvic pathology appreciated. Nonacute findings as noted above. <Electronically signed by Don Pierre > 09/28/21 [id number]
[2021-09-28 17:16] VITALS: BP 134/85
[2021-09-28] MEDS ORDERED: CEFD250S26 PO (17:28)
[2021-09-28] MEDS ORDERED: CEFDINIR 250 MG/5 ML 60ML SUSP BTL PO ONE (17:30)
--- NOTE | 2021-09-28 18:14 | ECGEPIP ---
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
== END 2021-09-28 17:50 | disposition home or self-care (01) ==
LOC: M ED 11:37 → EDBD 11:37 → M ED 17:50
DX: R10.9 Unspecified abdominal pain (principal); R00.0 Tachycardia, unspecified; Z87.442 Personal history of urinary calculi; R56.9 Unspecified convulsions; G80.9 Cerebral palsy, unspecified; K21.9 Gastro-esophageal reflux disease without esophagitis; Z88.1 Allergy status to other antibiotic agents; Z79.899 Other long term (current) drug therapy
CPT/HCPCS: 36415; 51701; 71045; 74018; 74177; 80048; 80076; 81001; 82550; 82553; 83690; 85025; 87086; 93005; 93041; 96361; 96374; 99285; J2270; Q9967

== ENCOUNTER → 2022-04-15 | Outpatient (CLI) | payer MEDICAID ==
[~2022-04-15] MED LIST changes: +ALBU2.5V10 INH; +ALBU2.5V10 NEB; -ALBU83IN INH; -ALBU83IN NEB; -CEFD1CAP8 PO; +CEFD250S26 PO; +CEFD300C41 PO; -D31000TA2 PO; +VITA100093 PO
[2022-04-15 12:39] LABS: HEMATOCRIT 52.1 % (42.0-52.0); HEMOGLOBIN 16.5 g/dl (13.5-17.5); MEAN CORPUSCULAR HEMOGLOBIN 29.1 pg (27.0-33.0); MEAN CORPUSCULAR HGB CONC 31.7 g/dl (32.0-36.5); MEAN CORPUSCULAR VOLUME 91.9 fl (80.0-96.0); PLATELET COUNT, AUTOMATED 230 10^3/uL (150-450); RED BLOOD COUNT 5.67 10^6/uL (4.30-6.10); WHITE BLOOD COUNT 11.4 10^3/uL (4.0-10.0)
[2022-04-15 13:22] LABS: ALT/SGPT 16 U/L (12-78); BILIRUBIN,TOTAL 0.2 MG/DL (0.2-1.0); BLOOD UREA NITROGEN 15 MG/DL (7-18); CALCIUM LEVEL 9.8 MG/DL (8.5-10.1); CARBON DIOXIDE LEVEL 28 MEQ/L (21-32); CHLORIDE LEVEL 104 MEQ/L (98-107); CHOLESTEROL LEVEL 152 MG/DL (<200); CREATININE FOR GFR 0.79 MG/DL (0.70-1.30); GLOMERULAR FILTRATION RATE > 60.0 (>60); GLUCOSE, FASTING 84 MG/DL (70-100); HDL CHOLESTEROL 50 MG/DL (>40); LDL CHOLESTEROL 84 MG/DL (<100); NON-HDL-C 102 MG/DL; POTASSIUM SERUM 4.6 MEQ/L (3.5-5.1); SODIUM LEVEL 139 MEQ/L (136-145); TOTAL PROTEIN 8.5 GM/DL (6.4-8.2); TRIGLYCERIDES LEVEL 90 MG/DL (<150); VALPROIC ACID (DEPAKOTE) 89.9 UG/ML (50.0-100.0)
[2022-04-15 13:29] LABS: EOSINOPHILS 5 % (0-3); LYMPHOCYTES 56 % (16-44); MONOCYTES 6 % (0-5); NEUTROPHILS 33 % (28-66)
[2022-04-15 13:30] LABS: PLATELET ESTIMATE NORMAL (NORMAL)
[2022-04-15 13:36] LABS: TOTAL 25(OH) VITAMIN D 43.5 NG/ML (30.0-100.0)
== END ==
LOC: M LAB 11:12
PROVIDERS: ATTEND Nurse Practitioner Family
DX: G80.9 Cerebral palsy, unspecified (principal); D72.820 Lymphocytosis (symptomatic); E78.1 Pure hyperglyceridemia; E55.9 Vitamin D deficiency, unspecified

== ENCOUNTER → 2023-03-08 | Outpatient (CLI) | payer MEDICAID ==
[~2023-03-08] MED LIST changes: -DOXY-350 PO; +DOXY-444 PO; -LEVO330T PO; +LEVO330T6 PO
[2023-03-08 18:10] LABS: HEMATOCRIT 47.3 % (42.0-52.0); HEMOGLOBIN 15.4 g/dl (13.5-17.5); MEAN CORPUSCULAR HGB CONC 32.6 g/dl (32.0-36.5); MEAN CORPUSCULAR VOLUME 92.2 fl (80.0-96.0); PLATELET COUNT, AUTOMATED 390 10^3/uL (150-450); RED BLOOD COUNT 5.13 10^6/uL (4.30-6.10); WHITE BLOOD COUNT 17.6 10^3/uL (4.0-10.0)
[2023-03-08 18:30] LABS: HEMOGLOBIN A1c 5.4 % (4.0-6.0)
[2023-03-08 18:33] LABS: VALPROIC ACID (DEPAKOTE) 77.9 UG/ML (50.0-100.0)
[2023-03-08 18:37] LABS: ALBUMIN 3.7 G/DL (3.2-5.2); ALKALINE PHOSPHATASE 92 U/L (46-116); ALT/SGPT 22 U/L (7.0-40); AST/SGOT < 8 U/L (<34); BILIRUBIN,TOTAL 0.2 MG/DL (0.3-1.2); BLOOD UREA NITROGEN 9 MG/DL (9-23); CALCIUM LEVEL 9.9 MG/DL (8.5-10.1); CARBON DIOXIDE LEVEL 25 MMOL/L (20-31); CHLORIDE LEVEL 104 MMOL/L (98-107); CREATININE FOR GFR 0.63 MG/DL (0.70-1.30); GLOMERULAR FILTRATION RATE > 60.0 (>60); GLUCOSE, FASTING 73 MG/DL (60-100); POTASSIUM SERUM 4.4 MMOL/L (3.5-5.1); SODIUM LEVEL 140 MMOL/L (136-145); TOTAL PROTEIN 7.6 G/DL (5.7-8.2)
[2023-03-08 18:38] LABS: TOTAL 25(OH) VITAMIN D 34.8 NG/ML (20.0-100.0)
[2023-03-08 18:44] LABS: ATYPICAL LYMPH 6 % (0-5); EOSINOPHILS 1 % (0-3); LYMPHOCYTES 34 % (16-44); MONOCYTES 7 % (0-5); NEUTROPHILS 51 % (28-66); PLATELET ESTIMATE NORMAL (NORMAL)
== END ==
LOC: M PLALAB 14:37
PROVIDERS: ATTEND Family Medicine
DX: G40.909 Epilepsy, unspecified, not intractable, without status epilepticus (principal); D72.820 Lymphocytosis (symptomatic); Z13.1 Encounter for screening for diabetes mellitus; E55.9 Vitamin D deficiency, unspecified; E78.1 Pure hyperglyceridemia; E66.9 Obesity, unspecified

== ENCOUNTER → 2023-09-06 | Outpatient (CLI) | payer MEDICAID ==
[~2023-09-06] MED LIST changes: -CEFD300C41 PO; +CEFD300C42 PO
[2023-09-06 16:09] LABS: VALPROIC ACID (DEPAKOTE) 74.7 UG/ML (50.0-100.0)
[2023-09-06 16:25] LABS: ALBUMIN 3.7 G/DL (3.2-5.2); ALKALINE PHOSPHATASE 96 U/L (46-116); ALT/SGPT 39 U/L (7.0-40); AST/SGOT 38 U/L (<34); BILIRUBIN,TOTAL 0.3 MG/DL (0.3-1.2); BLOOD UREA NITROGEN 9 MG/DL (9-23); CALCIUM LEVEL 10.1 MG/DL (8.5-10.1); CARBON DIOXIDE LEVEL 24 MMOL/L (20-31); CHLORIDE LEVEL 101 MMOL/L (98-107); GLOMERULAR FILTRATION RATE > 60.0 (>60); GLUCOSE, FASTING 106 MG/DL (60-100); POTASSIUM SERUM 4.2 MMOL/L (3.5-5.1); SODIUM LEVEL 142 MMOL/L (136-145); TOTAL PROTEIN 7.7 G/DL (5.7-8.2)
== END ==
LOC: M PLALAB 14:04
PROVIDERS: ATTEND Family Medicine
DX: G40.909 Epilepsy, unspecified, not intractable, without status epilepticus (principal)

== ENCOUNTER → 2023-11-02 | Outpatient (REF) | payer MEDICAID ==
[~2023-11-02] MED LIST changes: +CEFD1CAP9 PO; -CEFD300C42 PO
[2023-11-02 14:29] LABS: APPEARANCE, URINE CLEAR (CLEAR); BACTERIA, URINE AUTO NEGATIVE (NEGATIVE); BILIRUBIN, URINE AUTO NEGATIVE (NEGATIVE); BLOOD, URINE BLOOD NEGATIVE (NEGATIVE); COLOR, URINE COLORLESS (YELLOW); GLUCOSE, URINE (UA) AUTO NEGATIVE (NEGATIVE); KETONE, URINE AUTO TRACE mg/dL (NEGATIVE); LEUKOCYTE ESTERASE, URINE AUTO NEGATIVE (NEGATIVE); MUCUS, URINE SMALL (NEGATIVE); NITRITE, URINE AUTO NEGATIVE (NEGATIVE); PROTEIN, URINE AUTO NEGATIVE (NEGATIVE); RBC, URINE AUTO 0 /HPF (0-3); SQUAMOUS EPITHELIAL CELL UR AU 0 /HPF (0-6); UROBILINOGEN, URINE AUTO 0.2 mg/dL (0.0-2.0); WBC, URINE AUTO 1 /HPF (0-3)
== END ==
LOC: M SFHCPLAZ 13:20
PROVIDERS: ATTEND Family Medicine
DX: R39.9 Unspecified symptoms and signs involving the genitourinary system (principal)

== ENCOUNTER → 2024-05-02 | Outpatient (CLI) | payer MEDICAID ==
[~2024-05-02] MED LIST changes: +DOXY-440 PO; -DOXY-444 PO
[2024-05-02 16:58] LABS: BASO # 0.1 10^3/uL (0.0-0.2); BASO % 0.6 % (0.0-1.0); EOS # 0.6 10^3/uL (0.0-0.5); EOS % 4.3 % (0.0-3.0); HEMATOCRIT 45.9 % (42.0-52.0); LYMPH # 6.6 10^3/uL (1.5-5.0); LYMPH % 46.2 % (24.0-44.0); MEAN CORPUSCULAR HEMOGLOBIN 29.2 pg (27.0-33.0); MEAN CORPUSCULAR HGB CONC 32.7 g/dl (32.0-36.5); MEAN CORPUSCULAR VOLUME 89.3 fl (80.0-96.0); MONO # 0.9 10^3/uL (0.0-0.8); MONO % 6.2 % (2.0-8.0); NEUTROPHILS % 42.1 % (36.0-66.0); PLATELET COUNT, AUTOMATED 359 10^3/uL (150-450); RED BLOOD COUNT 5.14 10^6/uL (4.30-6.10); WHITE BLOOD COUNT 14.4 10^3/uL (4.0-10.0)
[2024-05-02 17:20] LABS: VALPROIC ACID (DEPAKOTE) 72.1 UG/ML (50.0-100.0)
[2024-05-02 17:21] LABS: ALBUMIN 3.7 G/DL (3.2-5.2); ALKALINE PHOSPHATASE 96 U/L (46-116); ALT/SGPT 13 U/L (7.0-40); AST/SGOT < 8 U/L (<34); BILIRUBIN,TOTAL 0.2 MG/DL (0.3-1.2); BLOOD UREA NITROGEN 13 MG/DL (9-23); CALCIUM LEVEL 10.2 MG/DL (8.5-10.1); CARBON DIOXIDE LEVEL 28 MMOL/L (20-31); CHLORIDE LEVEL 106 MMOL/L (98-107); CREATININE FOR GFR 0.68 MG/DL (0.70-1.30); GLOMERULAR FILTRATION RATE > 60.0 (>60); GLUCOSE, FASTING 83 MG/DL (60-100); POTASSIUM SERUM 4.5 MMOL/L (3.5-5.1); SODIUM LEVEL 140 MMOL/L (136-145); TOTAL PROTEIN 7.3 G/DL (5.7-8.2)
== END ==
LOC: M LAB 15:46
PROVIDERS: ATTEND Psychiatry & Neurology Neurology
DX: Z51.81 Encounter for therapeutic drug level monitoring (principal)

== ENCOUNTER 2024-06-06 07:38 | Day surgery (SDC) | payer MEDICAID ==
[~2024-06-06] VITALS: Ht 152.4 cm; Wt 75.7 kg
[~2024-06-06 07:38] MED LIST changes: +LIDOCAINE 2% 100MG/5ML SDV (FOR ANES.) As Ordered ONE; +fentaNYL 100 MCG/2 ML INJECTION As Ordered ONE; +propofoL 200 MG/20 ML VIAL As Ordered ONE; +propofoL 500 MG/50 ML VIAL As Ordered ONE
[2024-06-06] MEDS: NS 1,000 ML IV ONE (08:03)
[2024-06-06 09:12] VITALS: TEMP 97.3
[2024-06-06 09:34] VITALS: BP 150/73; O2SAT 98
== END 2024-06-06 09:35 | disposition home or self-care (01) ==
LOC: M OPP 07:38
PROVIDERS: ATTEND Internal Medicine Gastroenterology
DX: K59.00 Constipation, unspecified (principal); K44.9 Diaphragmatic hernia without obstruction or gangrene; K21.9 Gastro-esophageal reflux disease without esophagitis; R12 Heartburn; Z79.51 Long term (current) use of inhaled steroids; Z79.899 Other long term (current) drug therapy; Z88.1 Allergy status to other antibiotic agents; Z88.7 Allergy status to serum and vaccine
CPT/HCPCS: 43235; 45378; J3010

== ENCOUNTER → 2024-08-08 | Outpatient (REF) | payer MEDICAID ==
[~2024-08-08] MED LIST changes: -LIDOCAINE 2% 100MG/5ML SDV (FOR ANES.) As Ordered ONE; -fentaNYL 100 MCG/2 ML INJECTION As Ordered ONE; -propofoL 200 MG/20 ML VIAL As Ordered ONE; -propofoL 500 MG/50 ML VIAL As Ordered ONE
[2024-08-08 13:14] LABS: APPEARANCE, URINE CLEAR (CLEAR); BACTERIA, URINE AUTO NEGATIVE (NEGATIVE); BILIRUBIN, URINE AUTO NEGATIVE (NEGATIVE); BLOOD, URINE BLOOD NEGATIVE (NEGATIVE); COLOR, URINE YELLOW (YELLOW); GLUCOSE, URINE (UA) AUTO NEGATIVE (NEGATIVE); KETONE, URINE AUTO NEGATIVE (NEGATIVE); LEUKOCYTE ESTERASE, URINE AUTO NEGATIVE (NEGATIVE); MUCUS, URINE SMALL (NEGATIVE); NITRITE, URINE AUTO NEGATIVE (NEGATIVE); PROTEIN, URINE AUTO NEGATIVE (NEGATIVE); RBC, URINE AUTO 1 /HPF (0-3); SPECIFIC GRAVITY URINE AUTO 1.021 (1.002-1.035); SQUAMOUS EPITHELIAL CELL UR AU 0 /HPF (0-6); UROBILINOGEN, URINE AUTO 0.2 mg/dL (0.0-2.0); WBC, URINE AUTO 0 /HPF (0-3)
== END ==
LOC: M SMT 12:34
PROVIDERS: ATTEND Physician Assistant
DX: N31.9 Neuromuscular dysfunction of bladder, unspecified (principal)

== ENCOUNTER 2024-09-03 07:58 | Day surgery (SDC) | payer MEDICAID ==
[~2024-09-03] VITALS: Ht 149.9 cm; Wt 76.2 kg
[~2024-09-03 07:58] MED LIST changes: +CLEAPOW10; +OMEP40CA5 PO; +SENN-186 PO
[2024-09-03] MEDS: NS 250 ML IV ONE (08:18)
[2024-09-03] MEDS ORDERED: propofoL 200 MG/20 ML VIAL As Ordered ONE (09:15)
[2024-09-03 09:44] VITALS: TEMP 97.6
[2024-09-03 10:01] VITALS: BP 121/85; O2SAT 95
== END 2024-09-03 10:05 | disposition home or self-care (01) ==
LOC: M OPP 07:58
PROVIDERS: ATTEND Internal Medicine Gastroenterology
DX: K59.00 Constipation, unspecified (principal); K64.8 Other hemorrhoids; K21.9 Gastro-esophageal reflux disease without esophagitis; G80.9 Cerebral palsy, unspecified; Z88.1 Allergy status to other antibiotic agents; Z88.7 Allergy status to serum and vaccine; Z79.899 Other long term (current) drug therapy

== ENCOUNTER → 2024-10-23 | Outpatient (CLI) | payer MEDICAID ==
[2024-10-23 14:53] LABS: BASO # 0.1 10^3/uL (0.0-0.2); BASO % 0.6 % (0.0-1.0); EOS # 0.5 10^3/uL (0.0-0.5); EOS % 3.6 % (0.0-3.0); HEMOGLOBIN 15.6 g/dl (13.5-17.5); LYMPH # 6.5 10^3/uL (1.5-5.0); LYMPH % 45.6 % (24.0-44.0); MEAN CORPUSCULAR HEMOGLOBIN 30.3 pg (27.0-33.0); MEAN CORPUSCULAR HGB CONC 33.2 g/dl (32.0-36.5); MEAN CORPUSCULAR VOLUME 91.3 fl (80.0-96.0); MONO % 6.6 % (2.0-8.0); NEUTROPHILS # 6.2 10^3/uL (1.5-8.5); NEUTROPHILS % 43.2 % (36.0-66.0); PLATELET COUNT, AUTOMATED 337 10^3/uL (150-450); RED BLOOD COUNT 5.15 10^6/uL (4.30-6.10); WHITE BLOOD COUNT 14.3 10^3/uL (4.0-10.0)
[2024-10-23 15:25] LABS: VALPROIC ACID (DEPAKOTE) 72.5 UG/ML (50.0-100.0)
[2024-10-23 15:27] LABS: ALBUMIN 3.8 G/DL (3.2-5.2); ALKALINE PHOSPHATASE 85 U/L (40-129); ALT/SGPT 14 U/L (7.0-40); AST/SGOT 10 U/L (<34); BILIRUBIN,TOTAL 0.2 MG/DL (0.3-1.2); BLOOD UREA NITROGEN 13 MG/DL (9-23); CALCIUM LEVEL 10.7 MG/DL (8.5-10.1); CARBON DIOXIDE LEVEL 26 MMOL/L (20-31); CHLORIDE LEVEL 106 MMOL/L (98-107); CREATININE FOR GFR 0.62 MG/DL (0.70-1.30); GLOMERULAR FILTRATION RATE > 60.0 (>60); GLUCOSE, FASTING 86 MG/DL (60-100); POTASSIUM SERUM 4.5 MMOL/L (3.5-5.1); SODIUM LEVEL 141 MMOL/L (136-145); TOTAL PROTEIN 7.8 G/DL (5.7-8.2)
== END ==
LOC: M LAB 13:49
PROVIDERS: ATTEND Psychiatry & Neurology Neurology
DX: R56.9 Unspecified convulsions (principal); Z79.899 Other long term (current) drug therapy

== ENCOUNTER → 2025-02-27 | Outpatient (CLI) | payer MEDICAID | LOC: M LAB 13:09 | PROVIDERS: ATTEND Physician Assistant | DX: N20.0 Calculus of kidney (principal) ==